=== PATIENT | male | born 1940 | race Caucasian/White ===

== ENCOUNTER 2019-12-10 11:19 | Outpatient (REF) | payer MEDICARE, SELFPAY ==
--- NOTE | 2019-12-10 11:25 | XR_ITS ---
EXAMINATION: XR RIBS, RIGHT CLINICAL INFORMATION: Chest pain. Right rib pain. COMPARISON: None TECHNIQUE: 3 views of the right ribs were obtained. FINDINGS: Chest: The lungs are well-expanded and clear of acute process. There is a small 5 mm pulmonary nodule left midlung. Heart size and pulmonary vascular is normal. There is moderate spondylosis dorsal spine. Right RIBS: Multiple views right ribs reveal no visible fracture or bony abnormality. The soft tissues are normal. XR/XR ribs RT min 3V w CXR1V IMPRESSION: No acute pulmonary process seen. 5 mm pulmonary nodule left midlung, question nipple shadow versus lung nodule. Recommend oblique views. No visible right rib fracture or bony abnormality. There is mild spondylosis dorsal spine. No lytic process.
== END 2019-12-10 11:20 | disposition home or self-care (01) ==
LOC: HO.HMGCX 11:19
PROVIDERS: PCP Internal Medicine; Visit Provider Nurse Practitioner Family
DX: R07.89 Other chest pain (principal); R07.81 Pleurodynia
CPT/HCPCS: 71101

== ENCOUNTER 2021-09-20 11:33 | Outpatient (REF) | payer MEDICARE, SELFPAY ==
--- NOTE | ~2021-09-20 | XR_ITS ---
EXAMINATION: XR CERVICAL SPINE CLINICAL INFORMATION: Neck pain. COMPARISON: None TECHNIQUE: 2 views of the cervical spine were obtained. FINDINGS: Moderate cervicothoracic levoscoliosis is partially visualized. Mild reversal the normal cervical lordosis with apex at C4. Moderate to severe multilevel intervertebral disc, uncovertebral and facet arthropathy. There is no overt fracture. The soft tissues are unremarkable. XR/XR cervical spine 2V IMPRESSION: Reversal the normal cervical lordosis may be secondary to positioning, cervical thoracic levoscoliosis, muscle spasm and/or multilevel degenerative changes detailed above. No definitive acute abnormality.
== END 2021-09-20 11:34 | disposition home or self-care (01) ==
LOC: HO.HMGCX 11:33
PROVIDERS: Visit Provider Internal Medicine
DX: M54.2 Cervicalgia (principal)
CPT/HCPCS: 72040

== ENCOUNTER 2021-12-06 10:56 | Outpatient (REF) | payer MEDICARE, MEDICAID, SELFPAY ==
[2021-12-06 13:50] LABS: MANUAL DIFF FLAG NO
[2021-12-06 13:57] LABS: Basophils Percent Auto 0.6 % (0-2); Eosinophils Absolute Auto 0.2 X10*3/uL (0.0-0.4); Hematocrit 41.4 % (42.0-52.0); Hemoglobin 13.6 g/dl (14.0-18.0); Imm Gran Abs Auto 0.01 X10*3/uL (0.00-0.03); Imm Gran Pct Auto 0.2 % (0.0-0.4); Lymphocytes Absolute Auto 1.2 X10*3/uL (1.2-4.9); Lymphocytes Percent Auto 24.1 % (20-40); Mean Corpuscular HGB Conc 32.9 g/dl (31.0-36.0); Mean Corpuscular Hemoglobin 29.9 pg (27.0-33.0); Mean Platelet Volume 9.1 fL (9.4-12.4); Monocytes Absolute Auto 0.4 X10*3/uL (0.1-1.2); Monocytes Percent Auto 8.5 % (2-11); Neutrophils Absolute Auto 3.2 x10*3/uL (2.0-8.3); Neutrophils Percent Auto 63.6 % (45-73); Platelet Count 154 X10*3/uL (160-400); Red Blood Count 4.55 X10*6/uL (4.60-5.80); Red Cell Distribution Width 12.9 % (11.0-16.0); White Blood Count 5.1 X10*3/uL (4.8-10.8)
[2021-12-06 14:06] LABS: Appearance Urine Clear; Color Urine Yellow; Glucose Urine UA Negative (Negative); Leukocyte Esterase Urine Negative (Negative); Nitrite Urine Negative (Negative); Urine Blood Negative (Negative); Urine Ketones Negative (Negative); Urine Protein Negative (Neg-Trace)
[2021-12-06 14:24] LABS: Alanine Aminotransferase < 6 U/L (0-40); Albumin Level 4.3 g/dL (3.5-5.0); Alkaline Phosphatase 87 U/L (39-117); Anion Gap 14 (12-20); Aspartate Amino Transferase 14 U/L (5-37); Bilirubin Total 0.3 mg/dL (0.0-1.0); Blood Urea Nitrogen 14 mg/dL (9-16); Calcium 9.5 mg/dL (8.4-10.2); Carbon Dioxide 28 mmol/L (22-29); Chloride 101 mmol/L (96-108); Cholesterol 206 mg/dL; Estimated Glomerular Filt Rate > 60; Glucose Fasting 89 mg/dL (60-99); HDL Cholesterol 54 mg/dL; LDL Cholesterol Calculated 135 mg/dl; Potassium 4.3 mmol/L (3.3-5.1); Sodium 139 mmol/L (135-145); Total Protein 7.3 g/dL (6.5-8.0); Triglycerides 86 mg/dL
[2021-12-06 14:42] LABS: Vitamin D 25-OH Total 111.6 ng/mL (>30)
[2021-12-06 14:44] LABS: Creatinine Urine 53.52 mg/dL; Microalbumin Urine < 5.0 mg/L
[2021-12-06 14:54] LABS: Folate > 20.0 ng/mL (> or = 4.0); Vitamin B12 < 146 pg/mL (200-900)
[2021-12-07 06:58] LABS: Syphilis Screen Nonreactive (Nonreactive)
[2021-12-07 07:58] LABS: HIV AB/AG Nonreactive (Nonreactive); HIV Num 1 0.07 S/CO (0.00-0.99)
== END 2021-12-06 10:57 | disposition home or self-care (01) ==
LOC: HO.WFDLDS 10:56
PROVIDERS: Visit Provider Family Medicine
DX: Z00.00 Encounter for general adult medical examination without abnormal findings (principal); E55.9 Vitamin D deficiency, unspecified; E53.8 Deficiency of other specified B group vitamins; R26.9 Unspecified abnormalities of gait and mobility; I10 Essential (primary) hypertension; Z11.3 Encounter for screening for infections with a predominantly sexual mode of transmission; Z12.5 Encounter for screening for malignant neoplasm of prostate
CPT/HCPCS: 36415; 80053; 80061; 81003; 82043; 82306; 82607; 82746; 84153; 84443; 85025; 86780; 87389

== ENCOUNTER 2022-01-18 11:25 | Outpatient (REF) | payer MEDICARE, SELFPAY ==
[2022-01-18 14:11] LABS: MANUAL DIFF FLAG NO
[2022-01-18 14:19] LABS: Basophils Percent Auto 0.6 % (0-2); Eosinophils Absolute Auto 0.1 X10*3/uL (0.0-0.4); Eosinophils Percent Auto 2.8 % (0-4); Hematocrit 42.2 % (42.0-52.0); Hemoglobin 13.6 g/dl (14.0-18.0); Imm Gran Abs Auto 0.01 X10*3/uL (0.00-0.03); Imm Gran Pct Auto 0.2 % (0.0-0.4); Lymphocytes Absolute Auto 1.3 X10*3/uL (1.2-4.9); Lymphocytes Percent Auto 27.2 % (20-40); Mean Corpuscular HGB Conc 32.2 g/dl (31.0-36.0); Mean Corpuscular Hemoglobin 29.1 pg (27.0-33.0); Mean Corpuscular Volume 90.2 fL (80.0-98.0); Mean Platelet Volume 8.6 fL (9.4-12.4); Monocytes Absolute Auto 0.5 X10*3/uL (0.1-1.2); Monocytes Percent Auto 9.3 % (2-11); Neutrophils Percent Auto 59.9 % (45-73); Platelet Count 163 X10*3/uL (160-400); Red Blood Count 4.68 X10*6/uL (4.60-5.80); Red Cell Distribution Width 12.8 % (11.0-16.0); White Blood Count 4.9 X10*3/uL (4.8-10.8)
[2022-01-18 14:33] LABS: Anion Gap 14 (12-20); Blood Urea Nitrogen 14 mg/dL (9-16); Carbon Dioxide 28 mmol/L (22-29); Chloride 103 mmol/L (96-108); Estimated Glomerular Filt Rate > 60; Glucose Fasting 86 mg/dL (60-99); Potassium 4.4 mmol/L (3.3-5.1); Sodium 141 mmol/L (135-145)
[2022-01-18 15:09] LABS: Folate 16.2 ng/mL (> or = 4.0); Vitamin B12 363 pg/mL (200-900)
== END 2022-01-18 11:26 | disposition home or self-care (01) ==
LOC: HO.WFDLDS 11:25
PROVIDERS: Visit Provider Family Medicine
DX: Z00.00 Encounter for general adult medical examination without abnormal findings (principal); E53.8 Deficiency of other specified B group vitamins
CPT/HCPCS: 36415; 80048; 82607; 82746; 85025

== ENCOUNTER 2022-01-21 11:07 | Outpatient (REF) | payer OTHER, SELFPAY ==
--- NOTE | ~2022-01-21 | XR_ITS ---
EXAMINATION: XR CERVICAL SPINE CLINICAL INFORMATION: Pain. COMPARISON: None. TECHNIQUE: 3 views of the cervical spine were obtained. FINDINGS: No abnormal prevertebral soft tissue swelling is seen. There is loss of the normal cervical spine lordosis. There is significant disc space narrowing present with marginal spurring and bridging C3-C7. There is facet arthropathy seen throughout the C2-C7. Lucency is seen about the posterior aspect of the L2 vertebral body and facet which is likely related to artifact rather than a true fracture. XR/XR cervical spine 2V IMPRESSION: Significant cervical spondylosis as described.
--- NOTE | ~2022-01-21 | XR_ITS ---
EXAMINATION: XR SHOULDER, RIGHT CLINICAL INFORMATION: Right shoulder pain. COMPARISON: None TECHNIQUE: 3 views of the right shoulder. FINDINGS: There is no evidence of acute fracture or dislocation of the right shoulder. There is degenerative spurring about the glenohumeral joint. There is also noted to be some cartilage calcification about the humeral head with appearance of possible chondrocalcinosis. No widening of the coracoclavicular space is seen. XR/XR shoulder RT min 2V IMPRESSION: Degenerative change of the glenohumeral joint.
--- NOTE | ~2022-01-21 | XR_ITS ---
EXAMINATION: XR KNEE, LEFT CLINICAL INFORMATION: Left knee pain. COMPARISON: None TECHNIQUE: Four views of the left knee. FINDINGS: There is no evidence of acute fracture or dislocation of the left knee. There is chondrocalcinosis present. There is mild narrowing of the medial joint space compartment. There is degenerative change of the patellofemoral joint with spurring of both the medial and lateral facets of the patella and some irregularity seen about the medial facet. There is spurring about the patellar site of insertion of the quadriceps tendon. No effusion is appreciated. Prominent vascular calcification is seen. XR/XR knee LT 3V IMPRESSION: Degenerative changes of the left knee predominantly at the patellofemoral joint. Chondrocalcinosis.
[2022-01-21 12:48] LABS: Erythrocyte Sedimentation Rate 10 MM/HR (0-15)
[2022-01-21 12:57] LABS: Rheumatoid Factor < 75.0 IU/mL (<15.0)
[2022-01-21 13:07] LABS: Folate 16.4 ng/mL (> or = 4.0)
[2022-01-21 13:28] LABS: Vitamin B12 272 pg/mL (200-900)
[2022-01-23 06:58] LABS: Lyme Abs Screen <0.90 index
[2022-01-24 08:48] LABS: Anti Nuclear Antibody Screen NEGATIVE (NEGATIVE)
== END 2022-01-21 11:08 | disposition home or self-care (01) ==
LOC: HO.XRAY 11:07
PROVIDERS: PCP Family Medicine; Visit Provider Psychiatry & Neurology Neurology
DX: G20 Parkinson's disease (principal); M25.562 Pain in left knee; M54.2 Cervicalgia; M25.511 Pain in right shoulder
CPT/HCPCS: 36415; 72040; 73030; 73562; 82607; 82746; 85652; 86038; 86039; 86431; 86617; 86618

== ENCOUNTER 2022-01-25 11:04 | Outpatient (REF) | payer OTHER, SELFPAY ==
--- NOTE | ~2022-01-25 | MR_ITS ---
EXAMINATION: MRI BRAIN WITHOUT CONTRAST CLINICAL INFORMATION: New diagnosis of Parkinson's. Forgetfulness. Constant headaches. COMPARISON: No relevant recent prior imaging. TECHNIQUE: Multiplanar MR imaging of the brain was performed without contrast. FINDINGS: Patient motion degrades image quality therefore the diagnostic accuracy of this examination is limited. There are scattered nonspecific foci of T2 FLAIR signal hyperintensity within the periventricular white matter. No acute territorial infarct. No pathological magnetic susceptibility artifact. Intracranial vascular flow voids are grossly maintained. There is no intracranial mass effect or midline shift. No abnormal extra-axial collection. Lateral and third ventricles are normal. No hydrocephalus. There is advanced degenerative arthrosis of the atlantodental joint. The cervicomedullary junction is otherwise normal. No mastoid middle ear effusion. Mild paranasal sinus mucosal thickening within ethmoid air cells. Globes and orbits are symmetric. MR/MR head/brain wo con IMPRESSION: Patient motion degrades image quality therefore the diagnostic accuracy of this examination is limited. There are scattered chronic small vessel ischemic changes within the periventricular white matter. Otherwise unremarkable examination. No evidence of acute territorial infarct or hemorrhage. No intracranial mass effect or hydrocephalus.
== END 2022-01-25 11:05 | disposition home or self-care (01) ==
LOC: HO.MRI 11:04
PROVIDERS: Visit Provider Family Medicine
DX: R29.898 Other symptoms and signs involving the musculoskeletal system (principal); R26.2 Difficulty in walking, not elsewhere classified; R32 Unspecified urinary incontinence; R25.1 Tremor, unspecified
CPT/HCPCS: 70551

== ENCOUNTER 2023-02-06 15:16 | Outpatient (AMB) | payer OTHER, SELFPAY ==
[2023-02-06 15:20] VITALS: BP 128/72; PULSE 79; O2SAT 100; BMI 24.1
--- NOTE | 2023-02-06 15:20 | A.OFFPC_ITS ---
Vital Signs 02/06/23 15:20 Height 5 ft 2 in Weight 132 lb BMI 24.1 BP 128/72 Blood Pressure Location Lt brachial Position Sitting Pulse 79 Pulse Source Pulse Oximeter Pulse Oximetry (%) 100 Oxygen Delivery Method Room Air Intake Visit Reasons: follow up chronic conditions Intake Note: Patient is here to follow up on chronic conditions today. There are slight changes in Parkinson's, harder time walking, and harder time to have a bowel movement, and patient has tried to drink more water, and his ears feel blocked. Patient has a hard time sleeping. Allergies No Known Allergies Allergy (Verified 02/06/23 15:24) Tobacco use date assessed: 02/06/23 Fall risk assessment: No Falls in past year Last assessed Fall Risk: 02/06/23 HPI follow up chronic conditions HPI Details 82 y/o male [facility] He reports slight changes in Parkinson's, harder time walking, and harder time having a bowel movement. Pt also reports his ears feel blocked. He reports ongoing difficulty sleeping. They report they've seen Neurology 3 months ago and f/u with them in February. [facility] Medical History Osteoporosis Arthritis Surgical History No pertinent past surgical history Social History Housing: Assisted Living Facility Patient Tobacco Use Status: Never used Tobacco e-Cigarette/Vaping Use: Never Used Second Hand Smoke Exposure: No Current occupational status: retired and disabled Current occupational exposures/hazards: No Cognitive needs: No Hearing needs: Yes Vision needs: No Questionnaire Thrive Questionnaire Date Thrive assessed: 01/07/22 FABIENNE-7 AMB Questionnaire FABIENNE-7 Date FABIENNE - 7 assessed: 12/05/21 Source: Developed by Drs. Rad Dimas, Maria Elena Chaidez, Raoul Higuera and colleagues, with an educational eleanor from [employer]. Review of Systems Const Denies chills, Denies fatigue, Denies fever(s), Denies headache(s) and Denies weakness ENT Denies dizziness and Denies headache(s) Card Denies dyspnea Resp Denies cough, Denies dyspnea, Denies wheezing and Denies other (shortness of breath) GI Reports constipation Musc Denies numbness and Denies tingling Neuro Denies dizziness, Denies headache(s), Denies numbness, Denies tingling and Denies weakness Psych Denies anxiety and Denies depression Endo Denies fatigue Aller/Immun Denies wheezing Physical exam (Primary Care) Vital Signs: Last Vital Signs Pulse 79 02/06/23 15:20 BP 128/72 02/06/23 15:20 Pulse Ox 100 02/06/23 15:20 Oxygen Delivery Method Room Air 02/06/23 15:20 BMI result Body Mass Index 24.1 Tobacco/Smoking Status: Tobacco use Status Tobacco use date assessed 02/06/23 02/06/23 15:27 Patient Tobacco Use Status Never used Tobacco 02/06/23 15:27 e-Cigarette/Vaping Use Never Used 02/06/23 15:27 Thrive Assessment: Date of Thrive Assessment Date Thrive assessed 01/07/22 02/06/23 15:27 Const General: well developed; No acute distress Nutritional Appearance: well nourished Orientation/consciousness: patient oriented x3 HENMT Head: Yes normocephalic and Yes atraumatic Eyes General: appearance normal, both eyes and all related structures Pupils: Equal, round and reactive pupils present EOM: EOMs intact bilaterally Resp Effort & Inspection: normal respiratory effort Auscultation: clear to auscultation bilaterally Cardio Rate: regular rate Rhythm: regular rhythm Heart sounds: S1 normal heart sound present, S2 normal heart sound present, no gallops, no murmurs and no rubs Neuro Other: 3/5 LE weakness General: patient oriented x3 and No gait normal Cranial nerves: Yes Equal, round and reactive pupils present Psych Affect: normal affect Assessment and Plan Assessment & Plan (1) Parkinsonism: Code(s): G20.C - Parkinsonism, unspecified Plan: Worsened?symptoms?including: Worsened?imbalance, worsened?sleep?and?constipation Referred?him?to?physical?therapy?for?lower?extremity?weakness?and?imbalance. (2) Abnormal gait: Code(s): R26.9 - Unspecified abnormalities of gait and mobility Plan: As?above,?lower?extremity?weakness?and?imbalance.??Referred?for?physical?therapy Continue?using?cane Can?use?wheelchair?for?longer?distances (3) Difficulty sleeping: Code(s): G47.9 - Sleep disorder, unspecified Plan: Quetiapine?had?been?helping He?will?continue?quetiapine?in?the?daytime?and?can?inc rease?quetiapine?to?50?mg?in?the?evening/bedtime (4) Ear discomfort: Code(s): H92.09 - Otalgia, unspecified ear Plan: Patient?was?concerned?regarding?ear?wax?or?something?in?his?ears.??Ears?are?checo r (5) Hypertension: Code(s): I10 - Essential (primary) hypertension Plan: Blood?pressure?is?well?controlled.??Goal?is?less?than?140/90 Continue?current?medication (6) Lower extremity weakness: Code(s): R29.898 - Other symptoms and signs involving the musculoskeletal system Plan: As?above,?referred?to?physical?therapy (7) Constipation: Code(s): K59.00 - Constipation, unspecified Plan: Likely?multifactorial?including?parkinsonism?and?mild?dehydration. Encouraged?improved?hydration. Check?labs Orders: Orders Vitamin D 25-OH Total Today E55.9 - Vitamin D deficiency, unspecified Vitamin B12 and Folate Today E53.8 - Deficiency of other specified B group vitamins Magnesium Today R09.81 - Nasal congestion Comprehensive Met. Panel Today R09.81 - Nasal congestion Comprehensive [place]. Panel Fast Today Z00.00 - Encounter for general adult medical examination without abnormal findings TSH reflex Free T4 Today Z00.00 - Encounter for general adult medical examination without abnormal findings UA and rflx microscopic Today Z00.00 - Encounter for general adult medical examination without abnormal findings Complete Blood Count Auto Diff Today Z00.00 - Encounter for general adult medical examination without abnormal findings PT Evaluation and Treatment Today G20.C - Parkinsonism, unspecified, R26.9 - Unspecified abnormalities of gait and mobility, R29.898 - Other symptoms and signs involving the musculoskeletal system Phosphorus Today R29.898 - Other symptoms and signs involving the musculoskeletal system Coding Level of Care Code Est Pt Level 4 (34304) Diagnoses Parkinsonism G20.C Abnormal gait R26.9 Difficulty sleeping G47.9 Ear discomfort H92.09 Hypertension I10 Lower extremity weakness R29.898 Constipation K59.00
== END 2023-02-06 16:09 | disposition home or self-care (01) ==
PROVIDERS: PCP Family Medicine; Visit Provider Family Medicine
DX: G20.C Parkinsonism, unspecified (principal); R26.9 Unspecified abnormalities of gait and mobility; G47.9 Sleep disorder, unspecified; H92.09 Otalgia, unspecified ear; I10 Essential (primary) hypertension; R29.898 Other symptoms and signs involving the musculoskeletal system; K59.00 Constipation, unspecified
CPT/HCPCS: 99214

== ENCOUNTER 2023-09-16 13:50 | Outpatient (AMB) | payer OTHER, SELFPAY ==
--- NOTE | 2023-09-16 14:06 | A.OFFPC_ITS ---
Vital Signs 09/16/23 14:09 Height 5 ft 2 in Weight 131 lb 8 oz BMI 24.0 BP 110/72 Blood Pressure Location Lt brachial Position Sitting Intake Visit Reasons: 3 month Follow up Intake Note: Patient is here to follow up on HTN, Depression, Anxiety. Commercial Litigation Paralegal Required: No Senior Product Marketing Manager: Present Accompanied by: ev[employer] marketing Allergies No Known Allergies Allergy (Verified 09/16/23 14:08) Medication List - Last Reconciled 09/16/23 by Hernan Mae MD acetaminophen ER 650 mg PO Q12H PRN 10 days amlodipine 2.5 mg PO DAILY 30 days blood pressure monitor Automatic, Digital. Dx: I10. Daily As directed, 999 days/lifetime chair, wheel (Wheel chair) As directed cyanocobalamin (vitamin B-12) 1,000 mcg PO DAILY 30 days cyanocobalamin (vitamin B-12) 1,000 mcg IM Q4W 3 months diclofenac sodium 1% (Voltaren Arthritis Pain) 4 grams topical QID PRN 30 days diphenhydramine HCl (NightTime Sleep Aid (diphenhydramine)) 25 mg PO BEDTIME PRN 10 days docusate sodium 100 mg PO BID PRN fluticasone propionate 50 mcg/actuation (Flonase Allergy Relief) 1 spray intranasal Q12H 30 days lactulose PO lisinopril 5 mg PO DAILY 30 days naproxen 500 mg PO BID PRN oxybutynin chloride ER 2.5 mg (1/2 x 5 mg) PO DAILY 30 days polyethylene glycol 3350 17 grams PO quetiapine 25mg (1 tab) AM and 50mg (2 tabs) PM 30 days Shower Chair Shower chair/bench. As directed, 999 days. walker (Ultra-Light Rollator misc) As directed, 999 days Tobacco use date assessed: 09/16/23 Fall risk assessment: No Falls in past year Last assessed Fall Risk: 09/16/23 Dental Screening Dental Screen Date: 09/16/23 Did you have a dental visit in the last 12 months?: Yes Did you have a dental problem in the last 6 months where you did not have access to dental care?: No Was dental information given to patient?: Patient has dentist HPI 3 month Follow up HPI Details 83 y/o male presents to [facility]. Blood pressure today 110/72. He is on lisinopril 5mg daily, amlodipine 2.5mg. FABIENNE-7 21 today. They report mood fluctuates. They note he continues to take carbidopa/levodopa for his parkinson. Had ordered physical therapy for him in the past. Has complaints of L wrist pain. Also has complaints of neck pain. He reports difficuty sleeping and states seroquel does not help. They report ongoing issues with constipation. HPI Comments History of Present Illness Details Documentation assistance for Hernan Mae MD, was provided by Clinton Kingston,? Gas Systems Worker on 09/16/2023 at 3:02 PM EST. I, Dr. Mae, have read, observed, and verified documentation. [facility] Medical History Osteoporosis Arthritis Surgical History No pertinent past surgical history Social History (Updated 09/16/23 @ 14:17 by DAVE Stauffer) Housing: Assisted Living Facility Alcohol intake: never Patient Tobacco Use Status: Never used Tobacco e-Cigarette/Vaping Use: Never Used Second Hand Smoke Exposure: No service: No Current occupational status: retired and disabled Current occupational exposures/hazards: No Cognitive needs: Yes (cane) Hearing needs: Yes Vision needs: No Questionnaire PHQ-9 Over the last 2 weeks, how often have you been bothered by any of the following problems? 1. Little interest or pleasure in doing things: not at all 2. Feeling down, depressed, or hopeless: not at all 3. Trouble falling or staying asleep, or sleeping too much: not at all 4. Feeling tired or having little energy: not at all 5. Poor appetite or overeating: not at all 6. Feeling bad about yourself - or that you are a failure or have let yourself or your family down: not at all 7. Trouble concentrating on things, such as reading the newspaper or watching television: not at all 8. Moving or speaking so slowly that other people could have noticed. Or the opposite - being so fidgety or restless that you have been moving around a lot more than usual: not at all 9. Thoughts that you would be better off or of hurting yourself in some way: not at all Total score: 0 Depression Screening Interpretation: Negative Depression Screening Done: Yes Source: Developed by Drs. Rad Dimas, Maria Elena Chaidez, Raoul Higuera and colleagues, with an educational eleanor from [employer]. Thrive Questionnaire Date Thrive assessed: 09/16/23 I am a: Patient Within the past 12 months, did the food you bought not last and you didn't have the money to get more?: Never true Within the past 12 months, did you worry whether your food would run out before you got money to buy more?: Never true Do you have trouble paying for medicines?: No Do you have trouble getting transportation to medical appointments?: No Do you have trouble paying your heating and electricity bill?: No Do you have trouble taking care of your child, family member or friend?: No Do you have trouble with day-to-day activities such as bathing, preparing meals, shopping, managing finances, etc.?: No Are you currently unemployed and looking for a job?: No Are you interested in more education?: No Currently or been in a relationship where the following occur: No concerns reported THRIVE Score: 0 AUDIT C Alcohol Use Questionnaire (AUDIT-C) 1. How often do you have a drink containing alcohol?: Never Total Score: 0 FABIENNE-7 AMB Questionnaire FABIENNE-7 Date FABIENNE - 7 assessed: 09/16/23 Feeling nervous, anxious, or on edge: 3 = Nearly every day Not being able to stop or control worryin = Nearly every day Worrying too much about different things: 3 = Nearly every day Trouble relaxin = Nearly every day Being so restless that it is hard to sit still: 3 = Nearly every day Becoming easily annoyed or irritable: 3 = Nearly every day Feeling afraid as if something awful might happen: 3 = Nearly every day Total FABIENNE-7 score (0-4 normal; 5-9 mild; 10-14 moderate; 15-21 severe): 21 Source: Developed by Drs. Rad Dimas, Raoul Montelongo and colleagues, with an educational eleanor from [employer]. Review of Systems Const Denies chills, Denies fatigue, Denies fever(s), Denies headache(s) and Denies weakness ENT Denies dizziness and Denies headache(s) Card Denies dyspnea Resp Denies cough, Denies dyspnea, Denies wheezing and Denies other (shortness of breath) Musc Denies numbness and Denies tingling Neuro Denies dizziness, Denies headache(s), Denies numbness, Denies tingling and Denies weakness Psych Reports anxiety Endo Denies fatigue Aller/Immun Denies wheezing Physical exam (Primary Care) Vital Signs: Last Vital Signs BP 110/72 09/16/23 14:09 BMI result Body Mass Index 24.0 Tobacco/Smoking Status: Tobacco use Status Tobacco use date assessed 09/16/23 09/16/23 14:19 Patient Tobacco Use Status Never used Tobacco 09/16/23 14:19 e-Cigarette/Vaping Use Never Used 09/16/23 14:19 PHQ-9: PHQ-9 Score PHQ-9: Total score 0 09/16/23 14:43 Depression Screening Interpretation: Negative Thrive Assessment: Date of Thrive Assessment Date Thrive assessed 09/16/23 09/16/23 14:19 Currently or been in a relationship where the following occur: No concerns reported Const General: well developed; No acute distress Nutritional Appearance: well nourished Orientation/consciousness: patient oriented x3 [facility] Head: Yes normocephalic and Yes atraumatic Eyes General: appearance normal, both eyes and all related structures Pupils: Equal, round and reactive pupils present EOM: EOMs intact bilaterally Resp Effort & Inspection: normal respiratory effort Auscultation: clear to auscultation bilaterally Cardio Rate: regular rate Rhythm: regular rhythm Heart sounds: S1 normal heart sound present, S2 normal heart sound present, no gallops, no murmurs and no rubs Neuro General: patient oriented x3 and gait normal Cranial nerves: Yes Equal, round and reactive pupils present Psych Affect: normal affect Assessment and Plan Assessment & Plan (1) Parkinsonism: Code(s): G20.C - Parkinsonism, unspecified Plan: Fairly?stable?today?though?disease?is?progressive?and?patient?says?his?neurologi st?has?said?he?is?gradually?worsening Continues?carbidopa-levodopa Follow-up?with?Neurology?as?recommended (2) Hypertension: Code(s): I10 - Essential (primary) hypertension Plan: Blood?pressure?is?well?controlled.??Goal?is?less?than?140/90 Continue?current?medication (3) Depression with anxiety: Code(s): F41.8 - Other specified anxiety disorders Plan: Continue?Seroquel (4) Difficulty walking: Code(s): R26.2 - Difficulty in walking, not elsewhere classified Plan: Start?physical?therapy Will?give?him?a?script?for?a?motorized?scooter?for?longer?distances (5) Cervicalgia: Code(s): M54.2 - Cervicalgia Plan: Ice/heat Tylenol (6) Left wrist pain: Code(s): M25.532 - Pain in left wrist Plan: Likely?multifactorial?including?some?carpal?tunnel Gave?him?a?left?wrist?brace - use?loosely?at?bedtime (7) Difficulty sleeping: Code(s): G47.9 - Sleep disorder, unspecified Plan: Worsening?difficulty?with?sleep.??He?is?already?on?Seroquel?for?mood?and?says?th is?is?not?helping?with?sleep Will?try?some?Ambien (8) Constipation: Code(s): K59.00 - Constipation, unspecified Plan: Patient?is?not?drinking?enough?water?and?I?encouraged ?him?to?increase?water?intake Continue?using?MiraLax?with?good?hydration Orders: Orders PT Evaluation and Treatment Today G20.C - Parkinsonism, unspecified, R26.9 - Unspecified abnormalities of gait and mobility, R29.898 - Other symptoms and signs involving the musculoskeletal system, R53.1 - Weakness Complete Blood Count Auto Diff Today G20.C - Parkinsonism, unspecified, Z00.00 - Encounter for general adult medical examination without abnormal findings Lipid Panel Today G20.C - Parkinsonism, unspecified, Z00.00 - Encounter for general adult medical examination without abnormal findings UA and rflx microscopic Today G20.C - Parkinsonism, unspecified, Z00.00 - Encounter for general adult medical examination without abnormal findings Vitamin B12 and Folate Today E53.8 - Deficiency of other specified B group vitamins, G20.C - Parkinsonism, unspecified Comprehensive [place]. Panel Fast Today G20.C - Parkinsonism, unspecified, Z00.00 - Encounter for general adult medical examination without abnormal findings Microalbumin, Random (w Creat) Today G20.C - Parkinsonism, unspecified, I10 - Essential (primary) hypertension TSH reflex Free T4 Today G20.C - Parkinsonism, unspecified, Z00.00 - Encounter for general adult medical examination without abnormal findings Prostate Specific Antigen Scr Today G20.C - Parkinsonism, unspecified, Z12.5 - Encounter for screening for malignant neoplasm of prostate Referrals Audiology Referral H91.90 - Unspecified hearing loss, unspecified ear Medications: New miscellaneous medical supply Motorized?scooter. ?Daily?As directed. 999 days 1 ea 0RF G20.C - Parkinsonism, unspecified, R26.9 - Unspecified abnormalities of gait and mobility, R29.898 - Other symptoms and signs involving the musculoskeletal system zolpidem (Ambien) 5 mg PO BEDTIME 30 days PRN 30 tabs 0RF sleep carbidopa-levodopa 25-100 mg 1 tab PO QAM 30 days 30 tabs 0RF Refilled cyanocobalamin (vitamin B-12) 1,000 mcg PO DAILY 30 days 30 tabs 2RF Coding Level of Care Code Est Pt Level 4 (13351) Diagnoses Parkinsonism G20.C Hypertension I10 Depression with anxiety F41.8 Difficulty walking R26.2 Cervicalgia M54.2 Left wrist pain M25.532 Difficulty sleeping G47.9 Constipation K59.00
[2023-09-16 14:09] VITALS: BP 110/72; BMI 24.0
== END 2023-09-16 15:20 | disposition home or self-care (01) ==
PROVIDERS: PCP Family Medicine; Visit Provider Family Medicine
DX: G20.C Parkinsonism, unspecified (principal); I10 Essential (primary) hypertension; F41.8 Other specified anxiety disorders; R26.2 Difficulty in walking, not elsewhere classified; M54.2 Cervicalgia; M25.532 Pain in left wrist; G47.9 Sleep disorder, unspecified; K59.00 Constipation, unspecified
CPT/HCPCS: 99214

== ENCOUNTER 2023-09-19 10:03 | Outpatient (REF) | payer OTHER, SELFPAY ==
[2023-09-19 11:11] LABS: MANUAL DIFF FLAG NO
[2023-09-19 11:15] LABS: Basophils Percent Auto 0.7 % (0-2); Eosinophils Absolute Auto 0.1 X10*3/uL (0.0-0.4); Eosinophils Percent Auto 3.2 % (0-4); Hematocrit 39.6 % (42.0-52.0); Hemoglobin 12.9 g/dl (14.0-18.0); Imm Gran Abs Auto 0.01 X10*3/uL (0.00-0.03); Imm Gran Pct Auto 0.2 % (0.0-0.4); Lymphocytes Absolute Auto 1.3 X10*3/uL (1.2-4.9); Lymphocytes Percent Auto 28.9 % (20-40); Mean Corpuscular HGB Conc 32.6 g/dl (31.0-36.0); Mean Corpuscular Hemoglobin 29.3 pg (27.0-33.0); Monocytes Absolute Auto 0.4 X10*3/uL (0.1-1.2); Monocytes Percent Auto 9.5 % (2-11); Neutrophils Absolute Auto 2.6 x10*3/uL (2.0-8.3); Neutrophils Percent Auto 57.5 % (45-73); Platelet Count 124 X10*3/uL (160-400); Red Cell Distribution Width 13.4 % (11.0-16.0); White Blood Count 4.4 X10*3/uL (4.8-10.8)
[2023-09-19 12:10] LABS: Alanine Aminotransferase 7 U/L (0-40); Albumin Level 3.8 g/dL (3.5-5.0); Alkaline Phosphatase 77 U/L (39-117); Anion Gap 9 (12-20); Aspartate Amino Transferase 14 U/L (5-37); Bilirubin Total 0.8 mg/dL (0.0-1.0); Blood Urea Nitrogen 16 mg/dL (9-16); Calcium 8.6 mg/dL (8.4-10.2); Carbon Dioxide 28 mmol/L (22-29); Chloride 105 mmol/L (96-108); Cholesterol 192 mg/dL (<200); Estimated Glomerular Filt Rate > 60; Glucose Fasting 86 mg/dL (60-99); Glucose Random 86 mg/dL (60-115); HDL Cholesterol 48 mg/dL (>40); LDL Cholesterol Calculated 130 mg/dL (<100); Phosphorus 2.7 mg/dL (2.7-4.5); Potassium 4.1 mmol/L (3.3-5.1); Sodium 138 mmol/L (135-145); Total Protein 6.9 g/dL (6.5-8.0); Triglycerides 73 mg/dL (<150)
[2023-09-19 12:33] LABS: TSH reflex Free T4 1.29 uIU/mL (0.32-4.0); Vitamin D 25-OH Total 35.9 ng/mL (>30)
[2023-09-19 13:20] LABS: Folate 10.9 ng/mL (> or = 4.0); Prostate Specific Antigen Scr 1.79 ng/mL (<0.05-4.0); Vitamin B12 163 pg/mL (200-900)
[2023-09-19 14:12] LABS: Appearance Urine Clear; Color Urine Yellow; Glucose Urine UA Negative (Negative); Leukocyte Esterase Urine Negative (Negative); Nitrite Urine Negative (Negative); Specific Gravity - Urine 1.015 (1.005-1.025); Urine Blood Negative (Negative); Urine Ketones Negative (Negative); Urine Protein Negative (Neg-Trace)
[2023-09-19 14:48] LABS: Creatinine Urine 135.76 mg/dL; Microalbum/Creatinine Ratio Ur 10.3 ug/mg cr (<30)
== END 2023-09-19 10:04 | disposition home or self-care (01) ==
LOC: HO.WFDLDS 10:03
PROVIDERS: Visit Provider Family Medicine
DX: Z00.00 Encounter for general adult medical examination without abnormal findings (principal); R09.81 Nasal congestion; G20.C Parkinsonism, unspecified; I10 Essential (primary) hypertension; R29.898 Other symptoms and signs involving the musculoskeletal system; Z12.5 Encounter for screening for malignant neoplasm of prostate; E55.9 Vitamin D deficiency, unspecified; E53.8 Deficiency of other specified B group vitamins
CPT/HCPCS: 36415; 80053; 80061; 81003; 82043; 82306; 82570; 82607; 82746; 83735; 84100; 84153; 84443; 85025

== ENCOUNTER 2023-11-20 14:00 | Outpatient (RCR) | payer OTHER, SELFPAY ==
[2023-10-30 08:14] VITALS: BP 140/80; PULSE 68; O2SAT 98
--- NOTE | 2023-10-31 11:41 | MHC.PT.EP ---
[facility] [place] [facility] [place] [facility] [place] [facility] [address] Margie Cardenas [address] [phone] F: [phone] F: [phone] F: [phone] F: [phone] Physical Therapy Plan of Care Date of Evaluation: 10/30/23 Date of Surgery: Diagnosis: PT eval and treat G20.C Other symptoms and signs involving the musculoskeletal system R53.1 Weakness Parkinsonism Lower extremity weakness, generalized weakness, abnormal gait Signed by Hernan Mae 09/17/23 Assessment: Pt is a RHD 83 y/o male, referred to PT for treatment from PCP : PT eval and treat G20.C Other symptoms and signs involving the musculoskeletal system R53.1 Weakness: Parkinsonism Lower extremity weakness, generalized weakness, abnormal gait. Signed by Hernan Mae 09/17/23. Pt presents to the office with one of his RD SCIENTIST workers, unable to provide any information or background. Per medical records, it states patient received diagnosis of Parkinson's in 2021. Pt has noted speech difficulty and is not currently receiving any speech therapy. He also states he has not had PT in the past. Pt exhibits significant concern for risk of fall with short step length, shuffled feet with freezing episodes, catching his feet when moving. He presents to the office wearing slip on sandals. Pt presents to the office in MOD CGA support of his RD SCIENTIST while also carrying a std cane. Per baseline has been receiving Min<>MOD help out of bed for some time but does have periods of time when he is alone in his apartment. Pt exhibits impaired cervical ROM (significant limitation in rotation>flex>ext. Pt reports history of bilateral knee pain, weakness in his legs, and back pain. Pt would benefit from skilled PT services at a frequency of 1x/week x 4-6 weeks to address impairments, implement HEP, and restore functional mobility to improve safety. Pt presents to the office with RD SCIENTIST Gunnar Villa, states the primary RD SCIENTIST is Nasir Joyce (his ) with collective care of 50 hours per week (personal care, medical appts). Pt has poor trunk balance, impaired gait pattern, narrow ZULEIMA, and foot flat contact. He has poor safety during functional transfers and does not know how to use a walker safely. He is a major fall risk. Pt defers need for director multimedia, defers questions to his RD SCIENTIST during intake. Therapist was told by his RD SCIENTIST workers that patient has been in process of moving in with them into an apartment that has 12 steps to enter. Pt currently has his own senior housing in a first floor apartment. Therapist is expressing concern to investigate this patient's HCP/POA? It appears patient is completely reliant on support of this couple who are both act as his RD SCIENTIST with report of hours listed as 50 hours per week who now state they are moving him in with them to make it easier? Pt's RD SCIENTIST currently assist with personal care, grocery, meal prep, medical appts, and self care. Pt's RD SCIENTIST states he was was previously residing on his own in a handicap style apartment but due to concerns for falls, and need for more support they have been working to move him into their residence. When checking in with Dr. Mae medical office scheduler re: HCP- no record of HCP/POA was on file. Both patient and RD SCIENTIST worker were educated re: hand placement for support/sequencing with functional transfers issued education in writing. Pt will be seen in PT once weekly to address listed impairments/goals. RD SCIENTIST and patient were shown how to use a RW however decreased carryover is observed with patient and is appears he will require repeated training/education along with his care staff. Prognosis is fair based on baseline function, level of mobility, and compliance/current state. Pt has memory impairment as well. Mr. Nicole's RD SCIENTIST worker also inquired for referral aides. Frequency and Duration: The patient will be seen 1x/week x 4-6 weeks Short Term Goals: 1. Pt will demonstrate sit<>stand on first attempt. 2. Pt will demonstrate good eccentric control during functional transfers. 3. Pt will demonstrate bed mobility to the left MOD I. 4. Pt RD SCIENTIST will demonstrate good caregiver education for functional transfers/hand placement. Usp Goals: 1. Pt will demonstrate strength hip abd to 5/5. 2. Pt will demonstrate I HEP with RD SCIENTIST/caregiver education. 3. Pt will hip extension strength of 5/5. 4. Pt will improve HS flexibility to 155 degrees or > B knees. 5. Knee extension strength SLR into flexion with good dynamic balance. Treatment Plan: Modalities to reduce pain, spasms and effusion. Manual therapy to restore motion and function. Therapeutic exercise to improve strength and flexibility. Neuromuscular re-education for posture and balance. Therapeutic activities to return to functional activities of daily living. Electronically signed by: Olivia Braxton PT, DPT Please sign and return to therapist. Thank you for your referral.
== END 2023-12-30 13:37 | disposition home or self-care (01) ==
LOC: HO.PTWFD 14:00
PROVIDERS: PCP Family Medicine; Visit Provider Family Medicine
DX: G20.C Parkinsonism, unspecified (principal); R29.898 Other symptoms and signs involving the musculoskeletal system; R53.1 Weakness
CPT/HCPCS: 97110; 97116; 97161; 97162; 97530; 97535

== ENCOUNTER 2023-12-24 11:59 | Outpatient (AMB) | payer OTHER, SELFPAY ==
--- NOTE | 2023-12-24 12:17 | A.OFFVIS_ITS ---
Intake Vital Signs 12/24/23 12:19 Height 5 ft 2 in Weight 133 lb 6 oz BMI 24.4 BP 134/70 Blood Pressure Location Lt brachial Position Sitting Respiration 14 Pulse 81 Pulse Source Pulse Oximeter Pulse Oximetry (%) 98 Oxygen Delivery Method Room Air Intake Visit Reasons: CPE with f/u labs and health maint. 30 mins Intake Note: annual physical and follow up on labs. Patient had his vision tested a few months back. Hands And Dial Inspector Required: No Allergies No Known Allergies Allergy (Verified 12/24/23 13:02) Medication List - Last Reconciled 12/24/23 by TORI Yepez-JOSE MIGUEL acetaminophen ER 650 mg PO Q12H PRN 10 days amlodipine 2.5 mg PO DAILY 30 days blood pressure monitor Automatic, Digital. Dx: I10. Daily As directed, 999 days/lifetime carbidopa-levodopa 25-100 mg 1 tab PO BID 30 days chair, wheel (Wheel chair) As directed cyanocobalamin (vitamin B-12) 1,000 mcg PO DAILY 30 days cyanocobalamin (vitamin B-12) 1,000 mcg IM Q4W 3 months diclofenac sodium 1% (Voltaren Arthritis Pain) 4 grams topical QID PRN 30 days diphenhydramine HCl (NightTime Sleep Aid (diphenhydramine)) 25 mg PO BEDTIME PRN 10 days docusate sodium 100 mg PO BID PRN escitalopram oxalate 5 mg PO DAILY fluticasone propionate 50 mcg/actuation (Flonase Allergy Relief) 1 spray intranasal Q12H 30 days lactulose PO lisinopril 5 mg PO DAILY 30 days mirtazapine 15 mg PO BEDTIME miscellaneous medical supply Motorized?scooter. ?Daily?As directed. 999 days naproxen 500 mg PO BID PRN oxybutynin chloride ER 2.5 mg (1/2 x 5 mg) PO DAILY 30 days polyethylene glycol 3350 17 grams PO quetiapine 25mg (1 tab) AM and 50mg (2 tabs) PM 30 days Shower Chair Shower chair/bench. As directed, 999 days. walker (Ultra-Light Rollator misc) As directed, 999 days zolpidem (Ambien) 5 mg PO BEDTIME PRN 30 days Do you need a note to return to daycare/school/sports/work: No HPI HPI Comments History of Present Illness Details 83-year-old male with hypertension, tammy r depressive disorder, hypertension, B12 deficiency anemia, constipation, Parkinson's, osteoporosis, osteoarthritis, hemorrhoids, cataracts, HLD, FABIENNE Here today for AWV. The Medicare Annual Wellness Visit (AWV) is a yearly appointment with a health professional to identify health risks and help reduce them and to create or update a personalized prevention plan. During a Medicare AWV, health professionals should also review any current opioid prescriptions, detect any cognitive impairment, and establish or update medical and family history. SurgHx: Y FHx Y SocHx: Lives w/ decal applier Health Maintenance: See scanned preventative medicine assessment with personalized health plan and screening schedule. Colon: n/a based on age Vaccines Tdap 2018, PPSV 2008, declined Flu 2023, Shingles UTD AAA screen NA EKG: Declined Brilliant of Care: Neurology As listed in chart Visual Acuity: Y Hearing Screening: Y ACP: Does not have, ACP/MOLST/5 wishes provided today, reviewed w him and Manual Qa Tester. He has [facility] Nurse q3 months, advised to complete and return. Dietary/Nutrition/Exercise Edu provided: Y Labs reviewed. B12 anemia. Caregiver states he was on po and injectable B12 but is not currently. Unsure as to why. Has a nurse in the home that can give the parenteral b12. During the course of the visit the patient was educated and counseled about appropriate screening and preventative services. Patient instructions were provided to the patient in written or electronic format. I have reviewed and verified the above information. In addition to the wellness visit, there all several complaints that need to be addressed today. The 1st is that hard of hearing bilateral. Does not wear hearing aids. 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 He is not active with ear nose and throat. He also reports a history of cerumen impactions. Has chronic constipation with irritated hemorrhoids both internal and external. History of hemorrhoidectomy several years ago. Using several [id number] agents to help with his chronic constipation. The use of Mag citrate seems to b e the most successful. The last bowel movement was 2 days ago. He was referred to physical therapy to help prevent falls. Caregiver reports that recent appointment with neurologist recommended no need for physical therapy given his overall chronic frailty and deconditioning. I do not have this consult note for review. His carbidopa levodopa was also increased from once daily to twice per day. He uses a cane, walker and wheelchair for ambulation. Finally, chronic pain, generalized, worse in neck and bilat hands. Has been on gabapentin in the past w/o relief. On APAP ER BID, topical diclofenac & prn naproxen. Exam Awake alert, chronically ill appearing and frail, accompanied by female caregiver [place] imp bilat unable to see TM Edentulous Unsteady gait, amb w cane and physical asst. Plan: Refer to ENT for cerumen impactions bilat. Cannot lavage in the office given the hx of TM rupture on the L. Refer to Gen Surg for hemorrhoids. Pt would like repeat hemorrhoidectomy as this was helpful in the past. Rec cont bowel regimen. Ok to stop PT. Refer to [facility] for further asst in managing his chronic pain. Start parenteral and po B12. Lipids elevated, not on statin, clinically do not recommend based on age. Repeat labs ordered to be done before next appt with PCP which should be in about 4-6 months, sooner PRN. This note is constructed using voice recognition software. While every effort has been made to ensure accuracy in celebrity manager, still errors may have been included Sometimes, these errors may affect the content or meaning of the given sentence . An additional 30 was spent addressing the problem(s) noted at todays visit. This includes time spent before the visit reviewing the chart, time spent during the visit, and time spent after the visit on documentation [facility] Medical History (Updated 12/25/23 @ 10:52 by Cindi Lwoery, [facility]) Thrombocytopenia Depression with anxiety Lower extremity weakness Left wrist pain Generalized weakness Osteoporosis Arthritis Surgical History No pertinent past surgical history Social History (Updated 09/16/23 @ 14:17 by DAVE Stauffer) Housing: Assisted Living Facility Alcohol intake: never Patient Tobacco Use Status: Never used Tobacco e-Cigarette/Vaping Use: Never Used Second Hand Smoke Exposure: No service: No Current occupational status: retired and disabled Current occupational exposures/hazards: No Cognitive needs: Yes (cane) Hearing needs: Yes Vision needs: No Questionnaire Medicare Wellness Checkup What is your age?: 80 or older What gender do you identify with?: male During the past 4 weeks, how much have you been bothered by emotional problems such as feeling anxious, depressed, irritable, sad or downhearted, and blue?: not at all During the past 4 weeks, has your physical & emotional health limited your social activities with family, friends, neighbors, or groups?: not at all During the past 4 weeks, how much bodily pain have you generally had?: severe pain During the past 4 weeks, was someone available to help you if you needed & wanted help?: yes, as much as I wanted During the past 4 weeks, what was the hardest physical activity you could do for at least 2 minutes?: very light Can you get to places out of walking distance without help? (For eg., can you travel alone on buses, taxis or drive your car?): No Can you go shopping for groceries or clothes without someone's help?: No Can you prepare your own meals?: No Can you do your housework without help?: No Because of any health problems, do you need the help of another person with your personal care needs such as eating, bathing, dressing or getting around the house?: Yes Can you handle your own money without help?: No During the past 4 weeks, how would you rate your health in general?: fair During the past 4 weeks how have things been going for you?: good & bad parts about equal Are you having difficulties driving your car?: not applicable, I don't use a car Do you always fasten your seat belt when you are in a car?: yes, usually During past 4 weeks, have you been bothered by the following: never: Falling or dizzy when standing up and Sexual problems? and always: Trouble eating well? (edentulous, puree diet), Teeth or denture problems? (endetulous,working w/ Dental to get dentures), Problems using the telephone? and Tiredness or fatigue? Have you fallen 2 or more times in the past year?: No Are you afraid of falling?: No Are you a smoker?: no During the past 4 weeks, how many drinks of wine, beer, or other alcoholic beverages did you have?: no alcohol at all Do you exercise for about 20 minutes 3 or more times a week?: no, I usually do not exercise this much Have you been given information to help with the following?: no: Hazards in your house that might hurt you? and no: Keeping track of your medications? How often do you have trouble taking medicines the way you have been told to take them?: I always take medicine as prescribed How confident are you that you can control & manage most of your health problems?: very confident Activity of Daily Living Bathing - sponge bath, tub bath or shower: receives help in bathing more than one body part (or not bathed) Dressing - getting clothes from closets & drawers, including inner/outer garments & fasteners.: receives help getting clothes or getting dressed, or stays undressed Toileting - going to the 'toilet room' for urine/bowel elimination & cleaning self/arranging clothes: receives help going to toilet room, cleaning self or arranging clothes Transfer: moves in & out of bed or chair with help Continence: has occasional 'accidents' Feeding: feeds self except getting help in cutting meat/buttering bread Total Score: 2 Information obtained from: informant Using telephone: needs assistance Traveling: needs assistance Shopping: needs assistance Preparing meals: needs assistance Housework: dependent Taking medicine: needs assistance Managing money: dependent PHQ-9 Over the last 2 weeks, how often have you been bothered by any of the following problems? 1. Little interest or pleasure in doing things: several days 2. Feeling down, depressed, or hopeless: several days 3. Trouble falling or staying asleep, or sleeping too much: several days 4. Feeling tired or having little energy: several days 5. Poor appetite or overeating: several days 6. Feeling bad about yourself - or that you are a failure or have let yourself or your family down: not at all 7. Trouble concentrating on things, such as reading the newspaper or watching television: several days 8. Moving or speaking so slowly that other people could have noticed. Or the opposite - being so fidgety or restless that you have been moving around a lot more than usual: several days 9. Thoughts that you would be better off or of hurting yourself in some way: not at all Total score: 7 Depression Screening Interpretation: Negative Depression Screening Done: Yes 20060 - PHQ-9 Billing: Yes Source: Developed by Drs. Rad Dimas, Maria Elena Chaidez, Raoul Higuera and colleagues, with an educational eleanor from [employer]. Physical Exam Vital Signs: Last Vital Signs Pulse 81 12/24/23 12:19 Resp 14 12/24/23 12:19 BP 134/70 12/24/23 12:19 Pulse Ox 98 12/24/23 12:19 Oxygen Delivery Method Room Air 12/24/23 12:19 BMI result Body Mass Index 24.4 Office Procedures EKG Details: declined by patient [id number], Complete (do not bill declined ) Hearing Screen 91951 - Screening Test, pure tone, air only Vision Screening 44249 - Vision Screening Results AMB Hemoglobin A1c AMB Hemoglobin A1c 5.4 % Last Edit by Thang Hurd MA on 12/24/23 12:47 Results Reviewed Results Reviewed: Laboratory Last Values Hgb A1c (Clinic) 5.4 % (4.0-6.0) 12/24/23 12:17 RUN: 12/25/23 1048 PAGE 1 [facility] [address] [place] [address] Cullet Crusher: Hernan Baires M.D. Specimen Inquiry Name: Brad Nicole Age/Sex: 83/M : 1940 Unit#: [id number] Attend Dr: Hernan Mae MD Re09/19/23 Status: DEP [facility] Disch: SPEC : [id number] CONRAD: 09/19/23 STATUS: COMP REQ : [id number] RECD: 09/19/23-[address]: Hernan Mae MD COMP: 09/19/23 ENTERED: 09/19/[address] [facility] [address]: ORDERED: CBC Auto Diff Test Result Flag Reference WBC 4.4 L 4.8-10.8 X10*3/uL RBC 4.40 L 4.60-5.80 X10*6/uL HGB 12.9 L 14.0-18.0 g/dl HCT 39.6 L 42.0-52.0 % MCV 90.0 80.0-98.0 fL MCH 29.3 27.0-33.0 pg MCHC 32.6 31.0-36.0 g/dl RDW 13.4 11.0-16.0 % PLT 124 L 160-400 X10*3/uL MPV 9.0 L 9.4-12.4 fL Neut Pct Auto 57.5 45-73 % ImGran Pct Auto 0.2 0.0-0.4 % Lymp Pct Auto 28.9 20-40 % [place] Pct Auto 9.5 2-11 % Eos Pct Auto 3.2 0-4 % Baso Pct Auto 0.7 0-2 % NRBC Pct Auto 0.0 0.0-0.2 /100WBC ANC Neut Abs # 2.6 2.0-8.3 x10*3/uL ImGran Abs Auto 0.01 0.00-0.03 X10*3/uL Lymph Abs Auto 1.3 1.2-4.9 X10*3/uL [place] Abs Auto 0.4 0.1-1.2 X10*3/uL Eos Abs Auto 0.1 0.0-0.4 X10*3/uL Baso Abs Auto 0.0 0.0-0.2 X10*3/uL NRBC Abs Auto 0.000 0.0-0.012 X10*3/uL END OF REPORT RUN: 12/25/23 2704 PAGE 1 [facility] [address] [place] [id number] Cullet Crusher: Hernan Baires M.D. Specimen Inquiry Name: Brad Nicole Age/Sex: 83/M : 1940 Unit#: [id number] Attend Dr: Hernan Mae MD Re09/19/23 Status: DEP REF Location: [facility] Disch: SPEC : [id number] CONRAD: 09/19/23 STATUS: COMP REQ : [id number] RECD: 09/19/23-[address]: Hernan Mae MD COMP: 09/19/23-3 ENTERED: 09/19/23-[address]: ORDERED: CMP, CMP Fast, Phos, MG, Lipid Panel, Vitamin D 25-OH, TSH Rflx Test Result Flag Reference Sodium 138 135-145 mmol/L Potassium 4.1 3.3-5.1 mmol/L CL 105 96-108 mmol/L CO2 28 22-29 mmol/L Gap 9 L 12-20 BUN 16 9-16 mg/dL Creat 1.00 0.5-1.4 mg/dL EGFR > 60 NOTE: For -Guyanese individuals, multiply the result by 1.210. Chronic Kidney Disease: Estimated GFR < 60 mL/min/1.73m2 Severe Kidney Disease: Estimated GFR < 15 mL/min/1.73m2 Glucose, Random 86 60-115 mg/dL FBS 86 60-99 mg/dL CA 8.6 8.4-10.2 mg/dL Phosphorus 2.7 2.7-4.5 mg/dL Magnesium 2.0 1.6-2.6 mg/dL Total Bili 0.8 0.0-1.0 mg/dL AST (GOT) 14 5-37 U/L ALT (GPT) 7 0-40 U/L Protein, Total 6.9 6.5-8.0 g/dL Alb 3.8 3.5-5.0 g/dL Triglyceride 73 <150 mg/dL Desirable Triglyceride: less than 150 mg/dL Borderline High Triglyceride 150-199 mg/dL High Triglyceride: 200-499 mg/dL Very High Triglyceride: greater than or equal to 5OO mg/dL Cholesterol 192 <200 mg/dL Desirable Cholesterol: less than 200 mg/dL Borderline High Cholesterol: 200-239 mg/dL High Cholesterol: greater than 239 mg/dL LDL Calculated 130 H <100 mg/dL Desirable LDL: less than 100 mg/dL Near Optimal/Above Optimal LDL: 110-129 mg/dL Borderline High LDL: 130-159 mg/dL High LDL: 160-189 mg/dL Very High LDL: greater than or equal to 190 mg/dL HDL 48 >40 mg/dL Desirable HDL: greater than 40 mg/dL Note: This HDL assay may give artificially low results in patients with liver disease. Alk Phos 77 39-117 U/L Vit D 25-OH Tot 35.9 >30 ng/mL Health Based Reference Values* < 20 ng/mL Deficient 20-30 ng/mL Insufficient > 30 ng/mL Sufficient *Bailey OLIVARES. N Engl J Med. 2007;357:266-280 Care must be taken in interpreting Vitamin D results from different laboratories and methodologies. Published data demonstrated that results from patients undergoing hemodialysis may show a negative bias when tested with various automated 25-OH vitamin D assays when compared to LC-MS/MS. When testing samples from patients whose predominant form of Vitamin D is Vitamin D2, such as patients receiving Vitamin D2 supplementation, results that are subtherapeutic should be confirmed with another method such as LC-MS/MS. TSH 1.29 0.32-4.0 uIU/mL END OF REPORT Assessment & Plan Assessment & Plan (1) Encounter for subsequent annual wellness visit (AWV) in Medicare patient: Code(s): Z00.00 - Encounter for general adult medical examination without abnormal findings Plan: . (2) Chronic pain: Code(s): G89.29 - Other chronic pain Qualifiers: Chronic pain type: chronic pain syndrome Qualified Code(s): G89.4 - Chronic pain syndrome Plan: . (3) Hemorrhoids: Code(s): K64.9 - Unspecified hemorrhoids Qualifiers: Hemorrhoid type: unspecified Qualified Code(s): K64.9 - Unspecified hemorrhoids Plan: . (4) Hard of hearing: Comment: bilat Code(s): H91.90 - Unspecified hearing loss, unspecified ear Plan: . (5) Impacted cerumen, bilateral: Code(s): H61.23 - Impacted cerumen, bilateral Plan: . (6) ACP (advance care planning): Code(s): Z71.89 - Other specified counseling Plan: . (7) B12 deficiency anemia: Code(s): D51.9 - Vitamin B12 deficiency anemia, unspecified Qualifiers: Vitamin B12 deficiency anemia type: unspecified B12 deficiency Qualified Code(s): D51.9 - Vitamin B12 deficiency anemia, unspecified Plan: , (8) Cataracts, bilateral: Code(s): H26.9 - Unspecified cataract Qualifiers: Cataract type: age-related Age-related cataract type: nuclear Qualified Code(s): H25.13 - Age-related nuclear cataract, bilateral Plan: . (9) Parkinson disease: Code(s): G20.A1 - Parkinson's disease without dyskinesia, without mention of fluctuations Qualifiers: Dyskinesia presence: with dyskinesia Fluctuating manifestations: with fluctuating manifestations Qualified Code(s): G20.B2 - Parkinson's disease with dyskinesia, with fluctuations Plan: . (10) MDD (major depressive disorder), recurrent episode: Code(s): F33.9 - Major depressive disorder, recurrent, unspecified Qualifiers: Major depression episode severity: mild Qualified Code(s): F33.0 - Major depressive disorder, recurrent, mild Plan: . (11) FABIENNE (generalized anxiety disorder): Code(s): F41.1 - Generalized anxiety disorder Plan: . (12) Constipation: Code(s): K59.00 - Constipation, unspecified Qualifiers: Constipation type: chronic idiopathic constipation Qualified Code(s): K59.04 - Chronic idiopathic constipation Plan: . (13) Pancytopenia: Code(s): D61.818 - Other pancytopenia Plan: . (14) HLD (hyperlipidemia): Code(s): E78.5 - Hyperlipidemia, unspecified Qualifiers: Hyperlipidemia type: mixed hyperlipidemia Qualified Code(s): E78.2 - Mixed hyperlipidemia Plan: . Plan . Orders: Orders Vitamin B12 and Folate 05/18/24 D51.9 - Vitamin B12 deficiency anemia, unspecified, D61.818 - Other pancytopenia, E78.2 - Mixed hyperlipidemia AMB Hemoglobin A1c 12/24/23 Z13.9 - Encounter for screening, unspecified AMB EKG-In Office 12/24/23 Z13.6 - Encounter for screening for cardiovascular disorders Complete Blood Count no Diff 05/18/24 D51.9 - Vitamin B12 deficiency anemia, unspecified, D61.818 - Other pancytopenia, E78.2 - Mixed hyperlipidemia Lipid Panel 05/18/24 D51.9 - Vitamin B12 deficiency anemia, unspecified, D61.818 - Other pancytopenia, E78.2 - Mixed hyperlipidemia Referrals Ophthalmology Referral H26.9 - Unspecified cataract Pain Management Referral G89.29 - Other chronic pain General Surgery Referral K64.9 - Unspecified hemorrhoids Ear/Nose/Throat Referral H61.23 - Impacted cerumen, bilateral, H91.90 - Unspecified hearing loss, unspecified ear Medications: Changed From carbidopa-levodopa 25-100 mg 1 tab PO QAM 30 days 30 tabs 0RF To carbidopa-levodopa 25-100 mg 1 tab PO BID 30 days 60 tabs 0RF Refilled cyanocobalamin (vitamin B-12) 1,000 mcg PO DAILY 30 days 30 tabs 2RF cyanocobalamin (vitamin B-12) 1,000 mcg IM Q4W 3 months 4 mL 3RF Quality Reporting (2019) Adult ([facility] 138//) Smoking risk assessment performed?: Yes Patient Tobacco Use Status: Never used Tobacco Depression screening performed: Yes Screen Results: Yes Negative screen Recommended changes not done: EKG Patient refused: Yes Systolic BP not done?: No Diastolic BP not done?: No BMI screening not done: No Sexual Activity Screening ([facility] 153) Sexually active?: No Immunizations ([facility] 147, 117) Annual Influenza Vaccine: Yes Measles Antibody Test: No Mumps Antibody Test: No Rubella Antibody Test: No Varicella Antibody Test: No Anti Hepatitis A IgG Antigen test: No Anti Hepatitis B Virus Surface Ab test: No Fall Risk Screening ([facility] 139) Last assessed Fall Risk: 12/25/23 Fall risk assessment: No Falls in past year Dementia Assessment ([facility] 149) Cognitive assessment recorded: No (Prefers to make jokes during exam; therefore data is not clinically sig.) Reason not done: patient reason Assessment of cognition with standardized tool: Yes Depression/Bipolar (159/160/161/177) PHQ-9: Total score: 7 Ophthalmol:Cataracts Visual Acuity (133) Visual acuity exam performed: Yes (see results) Coding Level of Care Code Medicare Subsequent (G0439) Est Pt Level 4 (04156) Diagnoses Encounter for subsequent annual wellness visit (AWV) in Medicare patient Z00.00 Chronic pain syndrome G89.4 Chronic pain type: chronic pain syndrome Hemorrhoids, unspecified hemorrhoid type K64.9 Hemorrhoid type: unspecified Hard of hearing H91.90 Impacted cerumen, bilateral H61.23 ACP (advance care planning) Z71.89 Anemia due to vitamin B12 deficiency, unspecified B12 deficiency type D51.9 Vitamin B12 deficiency anemia type: unspecified B12 deficiency Age-related nuclear cataract of both eyes H25.13 Cataract type: age-related Age-related cataract type: nuclear 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 Dyskinesia presence: with dyskinesia Fluctuating manifestations: with fluctuating manifestations Mild episode of recurrent major depressive disorder F33.0 Major depression episode severity: mild FABIENNE (generalized anxiety disorder) F41.1 Chronic idiopathic constipation K59.04 Constipation type: chronic idiopathic constipation Pancytopenia D61.818 Mixed hyperlipidemia E78.2 Hyperlipidemia type: mixed hyperlipidemia CPT Codes Advance Care Planning - Time spent: 1-15 minutes, not on file ([id number]) EKG - CPT: 75502-[id number], Complete ([id number]) Coding - Hearing Test Screenin - Screening Test, pure tone, air only ([id number]) Vision Screening - Vision Screenin - Vision Screening ([id number]) Additional Codes PHQ-9 - 17421 - PHQ-9 Billing: Yes ([id number]) Advance Care Planning Advance Care Planning discussion: Exists, not on file Date of discussion: 12/25/23 Who was present: self and day care home provider Forms completed: Health Care Proxy, MOLST and Living will Time spent: 1-15 minutes, not on file Actual minutes spent: 5 Did not discuss due to Cultural/Spiritual beliefs: Yes
[2023-12-24 12:19] VITALS: BP 134/70; PULSE 81; RESP 14; O2SAT 98; BMI 24.4
== END 2023-12-24 13:24 | disposition home or self-care (01) ==
LOC: HO.HMCFM 12:00
PROVIDERS: PCP Family Medicine; Visit Provider Nurse Practitioner Family
DX: Z00.00 Encounter for general adult medical examination without abnormal findings (principal); G89.4 Chronic pain syndrome; K64.9 Unspecified hemorrhoids; G20.B2 Parkinson's disease with dyskinesia, with fluctuations; D61.818 Other pancytopenia; F33.0 Major depressive disorder, recurrent, mild; H61.23 Impacted cerumen, bilateral; Z71.89 Other specified counseling; D51.9 Vitamin B12 deficiency anemia, unspecified; H25.13 Age-related nuclear cataract, bilateral; F41.1 Generalized anxiety disorder; K59.04 Chronic idiopathic constipation

== ENCOUNTER → 2023-12-24 11:59 | Outpatient (BNVA) | payer OTHER, SELFPAY | PROVIDERS: PCP Family Medicine; Visit Provider Nurse Practitioner Family | DX: Z00.01 Encounter for general adult medical examination with abnormal findings (principal); Z13.1 Encounter for screening for diabetes mellitus; G89.4 Chronic pain syndrome; K64.9 Unspecified hemorrhoids; H61.23 Impacted cerumen, bilateral; D51.9 Vitamin B12 deficiency anemia, unspecified; H25.13 Age-related nuclear cataract, bilateral; G20.B2 Parkinson's disease with dyskinesia, with fluctuations; F33.0 Major depressive disorder, recurrent, mild; F41.1 Generalized anxiety disorder; K59.04 Chronic idiopathic constipation; D61.818 Other pancytopenia; E78.2 Mixed hyperlipidemia; Z71.89 Other specified counseling | CPT/HCPCS: 83036; 93005; 96127; 99212 ==

== ENCOUNTER 2024-01-02 13:34 | Outpatient (AMB) | payer OTHER, SELFPAY ==
--- NOTE | 2024-01-02 13:36 | MHC.OFFVIS ---
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 Patient denies any recent falls, trauma, or injury. He recently completed formal physical therapy for gait imbalance training with some improvement. Patient is accompanied by SALES SOLUTIONS REPRESENTATIVE Aicha. Denies any previous spine or joint injections or surgery. SALES SOLUTIONS REPRESENTATIVE reports patient has increased limping, shuffling gait and dragging his feet due to Parkinson's. He follows with Dr. Isbell at [facility]. Patient experiences chronic pain in neck, arms, shoulders, and legs with daily activities, functioning, walking, movements and cold weather. Pain is constant and is rated at 9/10. Patient has been managing pain with Tylenol, NSAIDs, topical applications and gabapentin with partial relief. SALES SOLUTIONS REPRESENTATIVE reports patient was under better pain control with low dose oxycodone over 5-6 years which allowed him to be less symptomatic and more functional. Patient also reports significant concerns in his neck and arms due to Parkinsons. Denies any fever or chills, rash, infection, constipation, sedations, nausea, vomiting, abdominal pain, chest pain, shortness of breaths, bladder or bowel dysfunction or saddle anesthesia. Location: Neck, shoulders, knee, bilateral legs Duration: Chronic pain worsening for past 5 years Characteristics of symptom or complaint: Aching, tingling, numbness, weakness, throbbing, sharp, heavy Aggravating or associated factors: Walking, movements, prolonged sitting or standing, laying, sleeping Relieving factors: Minimal relief with gabapentin, NSAIDs, Tylenol, heat therapy, topicals Treatment: Physical therapy [facility] Medical History (Updated 01/04/24 @ 19:24 by TORI Still) Progressive supranuclear palsy Thrombocytopenia Depression with anxiety Lower extremity weakness Left wrist pain Generalized weakness Osteoporosis Arthritis Surgical History No pertinent past surgical history Social History Housing: Assisted Living Facility Alcohol intake: never Patient Tobacco Use Status: Never used Tobacco e-Cigarette/Vaping Use: Never Used Second Hand Smoke Exposure: No service: No Current occupational status: retired and disabled Current occupational exposures/hazards: No Cognitive needs: Yes (cane) Hearing needs: Yes Vision needs: No Review of Systems Const All systems reviewed & are unremarkable except as noted in HPI and below Physical Exam Vital Signs: Last Vital Signs Pulse 81 01/02/24 13:43 BP 117/116 H 01/02/24 13:43 Pulse Ox 98 01/02/24 13:43 Oxygen Delivery Method Room Air 01/02/24 13:43 BMI result Body Mass Index 26.0 General: Appears afebrile. Alert and oriented. Mood and affect appropriate. Follows and participates in conversation appropriately. Respiratory effort is unlabored. No cough. Able to transition from sit to stand unassisted. Uses cane/walker. Neck Neck: Yes no lymphadenopathy, Yes supple, No anterior neck swelling, Yes no JVD, No prominent supraclavicular fat pad and No prominent dorsocervical fat pad General: Yes no CVA tenderness Back/Spine/Pelvis Back: no CVA tenderness Cervical Spine: loss of normal cervical lordosis, cervical muscular tenderness, pain with cervical ROM, No Cervical spine scars present, cervical spasm (right) and No Cervical spine tenderness Thoracic/Lumbar Spine: thoracic and lumbar spine normal to inspection and Thoracic/lumbar spine scar(s) Extrem General: Yes capillary refill normal, Yes no clubbing, cyanosis or edema and Yes no calf tenderness Quality Reporting (2020) Adult ([facility] 138/04/10/68) Smoking risk assessment performed?: Yes Patient Tobacco Use Status: Never used Tobacco Results Reviewed Results Reviewed: XR SHOULDER, RIGHT 01/21/22 CLINICAL INFORMATION: Right shoulder pain. FINDINGS: There is no evidence of acute fracture or dislocation of the right shoulder. There is degenerative spurring about the glenohumeral joint. There is also noted to be some cartilage calcification about the humeral head with appearance of possible chondrocalcinosis. No widening of the coracoclavicular space is seen. IMPRESSION: Degenerative change of the glenohumeral joint. XR KNEE, LEFT 01/21/22 CLINICAL INFORMATION: Left knee pain. FINDINGS: There is no evidence of acute fracture or dislocation of the left knee. There is chondrocalcinosis present. There is mild narrowing of the medial joint space compartment. There is degenerative change of the patellofemoral joint with spurring of both the medial and lateral facets of the patella and some irregularity seen about the medial facet. There is spurring about the patellar site of insertion of the quadriceps tendon. No effusion is appreciated. Prominent vascular calcification is seen. IMPRESSION: Degenerative changes of the left knee predominantly at the patellofemoral joint. Chondrocalcinosis. XR CERVICAL SPINE 01/21/22 CLINICAL INFORMATION: Pain. FINDINGS: No abnormal prevertebral soft tissue swelling is seen. There is loss of the normal cervical spine lordosis. There is significant disc space narrowing present with marginal spurring and bridging C3-C7. There is facet arthropathy seen throughout the C2-C7. Lucency is seen about the posterior aspect of the L2 vertebral body and facet which is likely related to artifact rather than a true fracture. IMPRESSION: Significant cervical spondylosis as described. Assessment & Plan Assessment & Plan (1) Cervical spondylosis: Code(s): M47.812 - Spondylosis without myelopathy or radiculopathy, cervical region Category: Medical (2) Disc disease, degenerative, cervical: Code(s): M50.30 - Other cervical disc degeneration, unspecified cervical region Category: Medical (3) Chronic pain: Code(s): G89.29 - Other chronic pain Category: Medical Qualifiers: Chronic pain type: chronic pain syndrome Qualified Code(s): G89.4 - Chronic pain syndrome (4) Parkinson disease: Code(s): G20.A1 - Parkinson's disease without dyskinesia, without mention of fluctuations Category: Medical Qualifiers: Dyskinesia presence: with dyskinesia Fluctuating manifestations: with fluctuating manifestations Qualified Code(s): G20.B2 - Parkinson's disease with dyskinesia, with fluctuations (5) Polyarthralgia: Code(s): M25.50 - Pain in unspecified joint Category: Medical (6) Cervicalgia: Code(s): M54.2 - Cervicalgia Category: Medical Plan 1. Schedule Bilateral Diagnostic C4-C5-C6 MBB with local, fluoroscopy and oral Ativan for cervical spondylosis for potential RFA procedures. Expectations, risks and benefits were reviewed. Patient and SALES SOLUTIONS REPRESENTATIVE are aware he will be contacted to schedule this procedure. 2. Neurology referral -second opinion per patient's request for potential Botox injections. 3. Will consider low dose oxycodone for chronic pain due to arthritis and degenerative changes in multiple pain generators, including neck, shoulders, arms/hands and needs. Patient agreed to have the UDS performed immediately after this appointment. Will provide short script of oxycodone with Narcan for moderate-severe pain. Side effects and precautions were discussed with patient and SALES SOLUTIONS REPRESENTATIVE. All questions were answered and she is agreeable to the plan. Follow up in 2 weeks for UDS review and sooner as needed. Orders: Referrals Neurology Referral G20.B2 - Parkinson's disease with dyskinesia, with fluctuations, G89.4 - Chronic pain syndrome Medications: New oxycodone Partial Fill upon patient request. 5 mg PO BID 10 days PRN 20 tabs 0RF pain (scale score 7-10) M47.812 - Spondylosis without myelopathy or radiculopathy, cervical region, M50.30 - Other cervical disc degeneration, unspecified cervical region naloxone 4 mg/actuation (Narcan) spray 1 dose into ONE nostril; alternate nostrils w each dose until help arrives 4 mg intranasal Q2M PRN 2 ea 0RF opioid overdose Changed From docusate sodium 100 mg PO BID PRN To docusate sodium 100 mg PO BID 30 days PRN 60 caps 0RF constipation Coding Level of Care Code New Pt Level 4 (40054) Complex EM visit Add On G2211 Diagnoses Cervical spondylosis M47.812 Disc disease, degenerative, cervical M50.30 Chronic pain syndrome G89.4 Chronic pain type: chronic pain syndrome 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 Dyskinesia presence: with dyskinesia Fluctuating manifestations: with fluctuating manifestations Polyarthralgia M25.50 Cervicalgia M54.2
[2024-01-02 13:43] VITALS: BP 117/116; PULSE 81; O2SAT 98; BMI 26.0
== END 2024-01-02 14:26 | disposition home or self-care (01) ==
PROVIDERS: PCP Family Medicine; Visit Provider Nurse Practitioner Family
DX: M47.812 Spondylosis without myelopathy or radiculopathy, cervical region (principal); M50.30 Other cervical disc degeneration, unspecified cervical region; G89.4 Chronic pain syndrome; G20.B2 Parkinson's disease with dyskinesia, with fluctuations; M25.50 Pain in unspecified joint; M54.2 Cervicalgia
CPT/HCPCS: 99204; G2211

== ENCOUNTER → 2024-01-02 13:34 | Outpatient (BNVA) | payer OTHER, SELFPAY | PROVIDERS: PCP Family Medicine; Visit Provider Nurse Practitioner Family | DX: M47.812 Spondylosis without myelopathy or radiculopathy, cervical region (principal); M50.30 Other cervical disc degeneration, unspecified cervical region; M25.50 Pain in unspecified joint; M54.2 Cervicalgia; G89.4 Chronic pain syndrome; G20.B2 Parkinson's disease with dyskinesia, with fluctuations | CPT/HCPCS: 99202 ==

== ENCOUNTER 2024-01-23 13:15 | Outpatient (AMB) | payer OTHER, SELFPAY ==
--- NOTE | 2024-01-23 13:38 | A.OFFVIS_ITS ---
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 Patient is accompanied by his INFORMATION SYSTEMS MANAGER. Patient reports he was getting out of bed with a railing and his hand slipped on the railing due to lotion on his hands and felt sudden severe pain to his left thumb and moderate pain in his back and right side of the scalp. Patient reports difficulty sleeping at night, difficulty with ADLs and mobility due to pain. INFORMATION SYSTEMS MANAGER reports patient did bump his head on the bed matress and when he fell but no LOC, dizziness, unusual behavior or increased unsteadiness. Patient reports increased neck pain since recent fall. He reports short script of oxycodone helped him significantly and he was able to sleep better at night. INFORMATION SYSTEMS MANAGER denies spine x-rays or brain CT or MRI taken at recent ER stay. Patient had x-ray of his left thumb which showed dislocation of distal phalanx of the left thumb, no evidence of associated fracture. He received digital nerve block and reduction with splinting and has upcoming Orthopedic follow-up for this. Patient is scheduled for diagnostic right sided cervical medial branch blocks on 02/12/[address] Negrete. Denies any recent cough, cold, infection, fever or any other significant changes in medical history since last office visit. PRIOR: Patient is 83-year-old male with history of arthritis, osteoporosis, Parkinson's, anxiety and depression, chronic left knee, right shoulder and neck pain, presents today for initial evaluation of chronic neck pain. Patient denies any recent falls, trauma, or injury. He recently completed formal physical therapy for gait imbalance training with some improvement. Patient is accompanied by INFORMATION SYSTEMS MANAGER Aicha. Denies any previous spine or joint injections or surgery. INFORMATION SYSTEMS MANAGER reports patient has increased limping, shuffling gait and dragging his feet due to Parkinson's. He follows with Dr. Isbell at [facility]. Patient experiences chronic pain in neck, arms, shoulders, and legs with daily activities, functioning, walking, movements and cold weather. Pain is constant and is rated at 9/10. Patient has been managing pain with Tylenol, NSAIDs, topical applications and gabapentin with partial relief. INFORMATION SYSTEMS MANAGER reports patient was under better pain control with low dose oxycodone over 5-6 years which allowed him to be less symptomatic and more functional. Patient also reports significant concerns in his neck and arms due to Parkinsons. Denies any fever or chills, rash, infection, constipation, sedations, nausea, vomiting, abdominal pain, chest pain, shortness of breaths, bladder or bowel dysfunction or saddle anesthesia. Location: Neck, shoulders, knee, bilateral legs Duration: Chronic pain worsening for past 5 years Characteristics of symptom or complaint: Aching, tingling, numbness, weakness, throbbing, sharp, heavy Aggravating or associated factors: Walking, movements, prolonged sitting or standing, laying, sleeping Relieving factors: Minimal relief with gabapentin, NSAIDs, Tylenol, heat therapy, topicals Treatment: Physical therapy [facility] Medical History Progressive supranuclear palsy Thrombocytopenia Depression with anxiety Lower extremity weakness Left wrist pain Generalized weakness Osteoporosis Arthritis Surgical History No pertinent past surgical history Social History Housing: Assisted Living Facility Alcohol intake: never Patient Tobacco Use Status: Never used Tobacco e-Cigarette/Vaping Use: Never Used Second Hand Smoke Exposure: No service: No Current occupational status: retired and disabled Current occupational exposures/hazards: No Cognitive needs: Yes (cane) Hearing needs: Yes Vision needs: No Review of Systems Const All systems reviewed & are unremarkable except as noted in HPI and below Physical Exam Vital Signs: Last Vital Signs Pulse 79 01/23/24 13:45 BP 164/107 H 01/23/24 13:45 Pulse Ox 97 01/23/24 13:45 Oxygen Delivery Method Room Air 01/23/24 13:45 General: Appears afebrile. No acute distress. Alert and oriented. Mood and affect appropriate. Pleasant. Hard of hearing bilaterally. Follows and participates in conversation appropriately. Respiratory effort is unlabored. No cough. Able to transition from sit to stand unassisted. Uses cane/walker. HEENT Head: Yes normal to inspection, Yes No palpable skull fracture present, Yes normocephalic, Yes atraumatic, No occipital foramen tenderness, Yes scalp tenderness (slight on right forehead), No Temporal artery tenderness present and No periorbital ecchymosis Face and sinus: Yes normal facial exam and Yes sinuses nontender Neck Neck: Yes no lymphadenopathy, Yes supple, No anterior neck swelling, Yes no JVD, No prominent supraclavicular fat pad and No prominent dorsocervical fat pad General: Yes no CVA tenderness Back/Spine/Pelvis Other: TTP over paraspinals from L4-S1. Repetitive lumbar flexion and axial rotation reproduces moderate pain. Mild midline tenderness to palpation in the thoracic or lumbar spine. Back: no CVA tenderness Cervical Spine: No Lhermitte's sign positive, loss of normal cervical lordosis, cervical muscular tenderness, pain with cervical ROM, No Cervical spine scars present, cervical spasm (right) and No Cervical spine tenderness Thoracic/Lumbar Spine: thoracic and lumbar spine normal to inspection, Thoracic/lumbar spine scar(s), Lasegue's sign negative, pain with thoraco-lumbar ROM, paraspinal muscle tenderness, thoraco-lumbar ROM limited, thoracic spinal tenderness and lumbar spinal tenderness Pelvis: no buttock tenderness Extrem General: Yes capillary refill normal, Yes no clubbing, cyanosis or edema and Yes no calf tenderness Left upper extremity: hand Details: normal capillary refill, tenderness Location: of the thumb, vascular exam Details: radial pulse present and normal capillary refill; not cool and no cyanosis, abnormal ROM of finger Details: pain with active ROM Location: of the thumb and unable to flex Location: of the thumb and swelling Location: of the thumb; no ecchymosis Quality Reporting (2020) Adult ([facility] 138/04/10/68) Smoking risk assessment performed?: Yes Patient Tobacco Use Status: Never used Tobacco Results Reviewed Results Reviewed: XR SHOULDER, RIGHT 01/21/22 CLINICAL INFORMATION: Right shoulder pain. FINDINGS: There is no evidence of acute fracture or dislocation of the right shoulder. There is degenerative spurring about the glenohumeral joint. There is also noted to be some cartilage calcification about the humeral head with appearance of possible chondrocalcinosis. No widening of the coracoclavicular space is seen. IMPRESSION: Degenerative change of the glenohumeral joint. XR KNEE, LEFT 01/21/22 CLINICAL INFORMATION: Left knee pain. FINDINGS: There is no evidence of acute fracture or dislocation of the left knee. There is chondrocalcinosis present. There is mild narrowing of the medial joint space compartment. There is degenerative change of the patellofemoral joint with spurring of both the medial and lateral facets of the patella and some irregularity seen about the medial facet. There is spurring about the patellar site of insertion of the quadriceps tendon. No effusion is appreciated. Prominent vascular calcification is seen. IMPRESSION: Degenerative changes of the left knee predominantly at the patellofemoral joint. Chondrocalcinosis. XR CERVICAL SPINE 01/21/22 CLINICAL INFORMATION: Pain. FINDINGS: No abnormal prevertebral soft tissue swelling is seen. There is loss of the normal cervical spine lordosis. There is significant disc space narrowing present with marginal spurring and bridging C3-C7. There is facet arthropathy seen throughout the C2-C7. Lucency is seen about the posterior aspect of the L2 vertebral body and facet which is likely related to artifact rather than a true fracture. IMPRESSION: Significant cervical spondylosis as described. Assessment & Plan Assessment & Plan (1) Mid back pain: Code(s): M54.9 - Dorsalgia, unspecified Category: Medical (2) Low back pain: Code(s): M54.50 - Low back pain, unspecified Category: Medical (3) Mid back pain: Code(s): M54.9 - Dorsalgia, unspecified Category: Medical (4) History of recent fall: Code(s): Z91.81 - History of falling Category: Medical (5) Headache: Code(s): R51.9 - Headache, unspecified Category: Medical (6) Cervical spondylosis: Code(s): M47.812 - Spondylosis without myelopathy or radiculopathy, cervical region Category: Medical (7) Disc disease, degenerative, cervical: Code(s): M50.30 - Other cervical disc degeneration, unspecified cervical region Category: Medical (8) Chronic pain: Code(s): G89.29 - Other chronic pain Category: Medical Qualifiers: Chronic pain type: chronic pain syndrome Qualified Code(s): G89.4 - Chronic pain syndrome (9) Cervicalgia: Code(s): M54.2 - Cervicalgia Category: Medical Plan Proceed with Bilateral Diagnostic C4-C5-C6 MBB as previously planned with local, fluoroscopy and oral Ativan for cervical spondylosis for potential RFA procedures. Lumbar and thoracic spine and hip imaging to assess degree of degenerative changes, any subluxation, listhesis, compression fractures or pars defects. Will also obtain head/brain CT with ongoing headache and residual right forehead pain s/p recent fall. Will consider low dose oxycodone for chronic pain due to arthritis and degenerative changes in multiple pain generators, including neck, shoulders, arms/hands and needs. Patient will complete UDS by 01/26/24 noon time. Previous short script of oxycodone was well tolerated by patient and per INFORMATION SYSTEMS MANAGER who reports patient was able to function and sleep better. All questions were answered and she is agreeable to the plan. Follow up in 2 weeks for UDS/xray review and sooner as needed. Orders: Orders XR thoracic spine 3V 01/23/24 M54.50 - Low back pain, unspecified, M54.9 - Dorsalgia, unspecified XR lumbar spine 4V min 01/23/24 M54.50 - Low back pain, unspecified, M54.9 - Dorsalgia, unspecified CT head/brain wo IV con 01/23/24 R51.9 - Headache, unspecified, Z91.81 - Histo ry of falling Medications: Discontinued oxycodone Partial Fill upon patient request. Discontinued Reason: Patient Completed Course 5 mg PO BID 10 days PRN 20 tabs 0RF pain (scale score 7-10) M47.812 - Spondylosis without myelopathy or radiculopathy, cervical region, M50.30 - Other cervical disc degeneration, unspecified cervical region naloxone 4 mg/actuation (Narcan) spray 1 dose into ONE nostril; alternate nostrils w each dose until help arrives Discontinued Reason: No Longer Medically Relevant 4 mg intranasal Q2M PRN 2 ea 0RF opioid overdose Coding Level of Care Code Est Pt Level 4 (65481) Complex EM visit Add On G2211 Diagnoses Mid back pain M54.9 Low back pain M54.50 History of recent fall Z91.81 Headache R51.9 Cervical spondylosis M47.812 Disc disease, degenerative, cervical M50.30 Chronic pain syndrome G89.4 Chronic pain type: chronic pain syndrome Cervicalgia M54.2
[2024-01-23 13:45] VITALS: BP 164/107; PULSE 79; O2SAT 97
== END 2024-01-23 14:17 | disposition home or self-care (01) ==
PROVIDERS: PCP Family Medicine; Visit Provider Nurse Practitioner Family
DX: M54.9 Dorsalgia, unspecified (principal); M54.50 Low back pain, unspecified; Z91.81 History of falling; R51.9 Headache, unspecified; M47.812 Spondylosis without myelopathy or radiculopathy, cervical region; M50.30 Other cervical disc degeneration, unspecified cervical region; G89.4 Chronic pain syndrome; M54.2 Cervicalgia
CPT/HCPCS: 99214; G2211

== ENCOUNTER 2024-01-23 13:15 | Outpatient (REF) | payer OTHER, SELFPAY ==
--- NOTE | ~2024-01-23 | XR_ITS ---
EXAMINATION: XR LUMBAR SPINE CLINICAL INFORMATION: Dorsalgia, unspecified - M25.551. COMPARISON: CT abdomen/pelvis with IV contrast 06/18/2019. TECHNIQUE: 5 views of the lumbar spine. FINDINGS: Dextrocurvature of the lumbar spine. The lumbar lordosis is maintained. No acute fracture or subluxation. No loss of vertebral body height. Multilevel loss of intervertebral disc height with endplate osteophytes, most severe at L5-S1. Prominent multilevel bilateral facet arthropathy. No concerning lytic or blastic osseous lesion. Moderate stool burden. XR/XR lumbar spine 4V min IMPRESSION: 1. Dextrocurvature of the lumbar spine. 2. Multilevel degenerative disc disease, most severe at L5-S1. Prominent multilevel bilateral facet arthropathy. Electronically signed by: Tommy Moya MD 02/10/2024 09:43 AM [place]
--- NOTE | ~2024-01-23 | XR_ITS ---
EXAMINATION: XR THORACIC SPINE CLINICAL INFORMATION: Back pain. COMPARISON: None available. TECHNIQUE: 3 views of the thoracic spine were obtained. FINDINGS: Normal vertebral body alignment. The thoracic kyphosis is maintained. No acute fracture or subluxation. No loss of vertebral body height. Moderate multilevel loss of intervertebral disc height with anterior endplate osteophytes. No concerning lytic or blastic osseous lesion. The visualized lungs are clear. XR/XR thoracic spine 3V IMPRESSION: Moderate multilevel degenerative disc disease. Electronically signed by: Tommy Moya MD 02/10/2024 09:43 AM [place]
== END 2024-01-23 13:16 | disposition home or self-care (01) ==
LOC: HO.XRAY 13:15
PROVIDERS: PCP Family Medicine; Visit Provider Nurse Practitioner Family
DX: M54.50 Low back pain, unspecified (principal); M54.9 Dorsalgia, unspecified; Z91.81 History of falling; R51.9 Headache, unspecified; M47.812 Spondylosis without myelopathy or radiculopathy, cervical region; G89.4 Chronic pain syndrome; M54.2 Cervicalgia
CPT/HCPCS: 72072; 72110; 99212

== ENCOUNTER 2024-01-26 09:48 | Outpatient (REF) | payer OTHER, SELFPAY | END 2024-01-26 09:49 | disposition home or self-care (01) | LOC: HO.LAB 09:48 | PROVIDERS: PCP Family Medicine; Visit Provider Nurse Practitioner Family | DX: Z13.89 Encounter for screening for other disorder (principal) ==

== ENCOUNTER 2024-01-29 06:05 | Outpatient (REF) | payer OTHER, SELFPAY | END 2024-01-29 06:06 | disposition home or self-care (01) | LOC: CF 06:05 | PROVIDERS: Visit Provider Internal Medicine | DX: Z13.89 Encounter for screening for other disorder (principal) ==

== ENCOUNTER 2024-02-09 13:52 | Outpatient (AMB) | payer OTHER, SELFPAY ==
--- NOTE | 2024-02-09 13:56 | A.OFFVIS_ITS ---
Vital Signs 02/09/24 14:06 02/09/24 14:06 Height 5 ft 2 in BP 176/112 H 167/94 H Blood Pressure Location Lt brachial Rt brachial Position Sitting Sitting Pulse 94 Pulse Source Pulse Oximeter Pulse Oximetry (%) 96 Oxygen Delivery Method Room Air Intake Visit Reasons: UDS Review/X-Ray Guncot[employer] Packer Required: No Accompanied by: Other Relationship Allergies No Known Allergies Allergy (Verified 01/23/24 13:44) HPI Comments Details: Patient presents for UDS review and opioid contract paperwork review. UDS was consistent. Per risk assessment, he is at moderate risk for adverse effects from opioids. PHQ score was 10. Detailed risk assessment scanned under activity tab. Contract reviewed and signed with patient and his DIRECTOR [employer] MARKET[employer] with whom patient resides. Denies any recent cough, cold, infection, fever or other significant changes in medical history since last office visit. Pending thoracic and lumbar spine imaging results. Xrays were completed on 01/23/24 at [facility]. Patient is scheduled for right side diagnostic cervical medial branch block on 02/12/24. PHQ-9 SCORE: 10 OPIOID RISK STRATIFICATION SURVEY SCORE: 16 Given this, patient is deemed to be a MODERATE RISK for chronic opioid addiction. Educated patient on intermodal customer service effects of opioid use including sexual dysfunction, cardiac, renal and immunosuppressive effects. The patient understands that the medication he is requesting is an opioid, which carries risks of dependence, tolerance, hyperalgesia, addiction, respiratory failure and possibly . Patient verbalized understanding of this and accepted these risks on his own volition. The patient accepts the responsibility to adhere to the opioid medication use agreement. There is no evidence of misuse, abuse or diversion at this time. Patient is aware he will be required to attend monthly pill counts and if there are any discrepancies, because of her risk of addiction she will be suspended for ONE YEAR. PRIOR: Patient presents today for follow up after recent [facility] ER visit on 01/06/24 s/p mechanical fall at home. Patient is accompanied by his DIRECTOR [employer]. Patient reports he was getting out of bed with a railing and his hand slipped on the railing due to lotion on his hands and felt sudden severe pain to his left thumb and moderate pain in his back and right side of the scalp. Patient reports difficulty sleeping at night, difficulty with ADLs and mobility due to pain. [employer] reports patient did bump his head on the bed matress and when he fell but no LOC , dizziness, unusual behavior or increased unsteadiness. Patient reports increased neck pain since recent fall. He reports short script of oxycodone helped him significantly and he was able to sleep better at night. [employer]OR [employer] denies spine x-rays or brain CT or MRI taken at recent ER stay. Patient had x-ray of his left thumb which showed dislocation of distal phalanx of the left thumb, no evidence of associated fracture. He received digital nerve block and reduction with splinting and has upcoming Orthopedic follow-up for this. Patient is scheduled for diagnostic right sided cervical medial branch blocks on 02/12/[address] Negrete. Denies any recent cough, cold, infection, fever or any other significant changes in medical history since last office visit. PRIOR: Patient is 83-year-old male with history of arthritis, osteoporosis, Parkinson's, anxiety and depression, chronic left knee, right shoulder and neck pain, presents today for initial evaluation of chronic neck pain. Patient denies any recent falls, trauma, or injury. He recently completed formal physical therapy for gait imbalance training with some improvement. Patient is accompanied by JOEL Holcomb. Denies any previous spine or joint injections or surgery. [employer] reports patient has increased limping, shuffling gait and dragging his feet due to Parkinson's. He follows with Dr. Isbell at [facility]. Patient experiences chronic pain in neck, arms, shoulders, and legs with daily activities, functioning, walking, movements and cold weather. Pain is constant and is rated at 9/10. Patient has been managing pain with Tylenol, NSAIDs, topical applications and gabapentin with partial relief. [employer] reports patient was under better pain control with low dose oxycodone over 5-6 years which allowed him to be less symptomatic and more functional. Patient also reports significant concerns in his neck and arms due to Parkinsons. Denies any fever or chills, rash, infection, constipation, sedations, nausea, vomiting, abdominal pain, chest pain, shortness of breaths, bladder or bowel dysfunction or saddle anesthesia. Location: Neck, shoulders, knee, bilateral legs Duration: Chronic pain worsening for past 5 years Characteristics of symptom or complaint: Aching, tingling, numbness, weakness, throbbing, sharp, heavy Aggravating or associated factors: Walking, movements, prolonged sitting or standing, laying, sleeping Relieving factors: Minimal relief with gabapentin, NSAIDs, Tylenol, heat therapy, topicals Treatment: Physical therapy [facility] Medical History Progressive supranuclear palsy Thrombocytopenia Depression with anxiety Lower extremity weakness Left wrist pain Generalized weakness Osteoporosis Arthritis Surgical History No pertinent past surgical history Social History Housing: Assisted Living Facility Alcohol intake: never Patient Tobacco Use Status: Never used Tobacco e-Cigarette/Vaping Use: Never Used Second Hand Smoke Exposure: No service: No Current occupational status: retired and disabled Current occupational exposures/hazards: No Cognitive needs: Yes (cane) Hearing needs: Yes Vision needs: No Review of Systems Const All systems reviewed & are unremarkable except as noted in HPI and below Physical Exam General: Appears afebrile. Alert and oriented. Mood and affect appropriate. Hard of hearing bilaterally. Follows and participates in conversation appropriately. Respiratory effort is unlabored. No cough. Able to transition from sit to stand unassisted. Uses cane/walker. Neck Neck: Yes no lymphadenopathy, Yes supple, No anterior neck swelling, Yes no JVD, No prominent supraclavicular fat pad and No prominent dorsocervical fat pad General: Yes no CVA tenderness Back/Spine/Pelvis Other: Limited lumbar ROM due to pain. Repetitive lumbar flexion and axial rotation reproduces moderate pain. Back: no CVA tenderness Cervical Spine: No Lhermitte's sign positive, loss of normal cervical lordosis, cervical muscular tenderness, pain with cervical ROM, No Cervical spine scars present, cervical spasm (right) and No Cervical spine tenderness Thoracic/Lumbar Spine: thoracic and lumbar spine normal to inspection, Thoracic/lumbar spine scar(s), Lasegue's sign negative, straight leg raise negative bilaterally, pain with thoraco-lumbar ROM, paraspinal muscle tenderness, thoraco-lumbar ROM limited, thoracic spinal tenderness and lumbar spinal tenderness Pelvis: no buttock tenderness Extrem General: Yes capillary refill normal, Yes no clubbing, cyanosis or edema and Yes no calf tenderness Left upper extremity: hand Details: normal capillary refill, tenderness Location: of the thumb, vascular exam Details: radial pulse present and normal capillary refill; not cool and no cyanosis, abnormal ROM of finger Details: pain with active ROM Location: of the thumb and unable to flex Location: of the thumb and swelling Location: of the thumb; no ecchymosis Psych Appearance: grossly normal Mental Status: mental status grossly normal and other (Forgetful. Lives with DIRECTOR [employer] 24/7 care) Speech and movement: Normal speech and movement present Affect: normal affect Attitude: cooperative Thought process: Normal thought process present Thought content: Normal thought content present, suicidality (none), no hallucinations and Depressive thoughts present Insight: Fair insight present (Psych) Judgement: Fair judgement present (Psych) Quality Reporting (2019) Adult ([facility] ) Smoking risk assessment performed?: Yes Patient Tobacco Use Status: Never used Tobacco Results Reviewed Results Reviewed: XR SHOULDER, RIGHT 01/21/22 CLINICAL INFORMATION: Right shoulder pain. FINDINGS: There is no evidence of acute fracture or dislocation of the right shoulder. There is degenerative spurring about the glenohumeral joint. There is also noted to be some cartilage calcification about the humeral head with appearance of possible chondrocalcinosis. No widening of the coracoclavicular space is seen. IMPRESSION: Degenerative change of the glenohumeral joint. XR KNEE, LEFT 01/21/22 CLINICAL INFORMATION: Left knee pain. FINDINGS: There is no evidence of acute fracture or dislocation of the left knee. There is chondrocalcinosis present. There is mild narrowing of the medial joint space compartment. There is degenerative change of the patellofemoral joint with spurring of both the medial and lateral facets of the patella and some irregularity seen about the medial facet. There is spurring about the patellar site of insertion of the quadriceps tendon. No effusion is appreciated. Prominent vascular calcification is seen. IMPRESSION: Degenerative changes of the left knee predominantly at the patellofemoral joint. Chondrocalcinosis. XR CERVICAL SPINE 01/21/22 CLINICAL INFORMATION: Pain. FINDINGS: No abnormal prevertebral soft tissue swelling is seen. There is loss of the normal cervical spine lordosis. There is significant disc space narrowing present with marginal spurring and bridging C3-C7. There is facet arthropathy seen throughout the C2-C7. Lucency is seen about the posterior aspect of the L2 vertebral body and facet which is likely related to artifact rather than a true fracture. IMPRESSION: Significant cervical spondylosis as described. Assessment & Plan Assessment & Plan (1) Low back pain: Code(s): M54.50 - Low back pain, unspecified Category: Medical (2) Cervical spondylosis: Code(s): M47.812 - Spondylosis without myelopathy or radiculopathy, cervical region Category: Medical (3) Disc disease, degenerative, cervical: Code(s): M50.30 - Other cervical disc degeneration, unspecified cervical region Category: Medical (4) Chronic pain: Code(s): G89.29 - Other chronic pain Category: Medical Qualifiers: Chronic pain type: chronic pain syndrome Qualified Code(s): G89.4 - Chronic pain syndrome Plan Proceed with Bilateral Diagnostic C4-C5-C6 MBB as previously planned 02/12/24 with local, fluoroscopy and oral Ativan for cervical spondylosis for potential RFA procedures. Lumbar and thoracic spine pending results. Xrays were completed 01/23/24 at [facility]. Patient presents for UDS review and opioid contract paperwork review. UDS was consistent. Per risk assessment, he is at moderate risk for adverse effects from opioids. PHQ score was 10. Detailed risk assessment scanned under activity tab. Contract reviewed and signed. Script provided for oxycodone 5 mg TID prn for moderate-severe pain. Side effects and precautions were discussed with patient and [employer]OR [employer]. Encouraged adequate daily hydration and dietary fiber. Narcan sent today. All questions were answered and she is agreeable to the plan. Follow up in 2 weeks after injections/pill count and sooner as needed. Medications: Changed From oxycodone Partial Fill upon patient request. 5 mg PO BID PRN 20 tabs 0RF pain (scale score 7-10) 10 days M47.812 - Spondylosis without myelopathy or radiculopathy, cervical region, M50.30 - Other cervical disc degeneration, unspecified cervical region To oxycodone Partial Fill upon patient request. 5 mg PO TID 30 days PRN 90 tabs 0RF pain (scale score 7-10) M47.812 - Spondylosis without myelopathy or radiculopathy, cervical region, M50.30 - Other cervical disc degeneration, unspecified cervical region Coding Level of Care Code Est Pt Level 4 (21131) Complex EM visit Add On G2211 Diagnoses Low back pain M54.50 Cervical spondylosis M47.812 Disc disease, degenerative, cervical M50.30 Chronic pain syndrome G89.4 Chronic pain type: chronic pain syndrome
[2024-02-09 14:06] VITALS: BP 167/94; BP 176/112; PULSE 94; O2SAT 96
== END 2024-02-09 14:33 | disposition home or self-care (01) ==
PROVIDERS: PCP Family Medicine; Visit Provider Nurse Practitioner Family
DX: M54.50 Low back pain, unspecified (principal); M47.812 Spondylosis without myelopathy or radiculopathy, cervical region; M50.30 Other cervical disc degeneration, unspecified cervical region; G89.4 Chronic pain syndrome
CPT/HCPCS: 99214; G2211

== ENCOUNTER → 2024-02-09 13:52 | Outpatient (BNVA) | payer OTHER, SELFPAY | PROVIDERS: PCP Family Medicine; Visit Provider Nurse Practitioner Family | DX: M54.50 Low back pain, unspecified (principal); M47.812 Spondylosis without myelopathy or radiculopathy, cervical region; M50.30 Other cervical disc degeneration, unspecified cervical region; G89.4 Chronic pain syndrome | CPT/HCPCS: 99212 ==

== ENCOUNTER 2024-02-12 13:05 | Outpatient (AMB) | payer OTHER, SELFPAY ==
--- NOTE | 2024-02-12 13:06 | A.OFFVIS_ITS ---
Vital Signs 02/12/24 13:07 02/12/24 13:33 BP 142/86 H 153/87 H Blood Pressure Location Rt brachial Rt brachial Position Sitting Sitting Pulse 88 100 Pulse Source Pulse Oximeter Pulse Oximeter Pulse Oximetry (%) 97 96 Oxygen Delivery Method Room Air Room Air Intake Visit Reasons: Right Dx C4-C5-C6 MBB Allergies No Known Allergies Allergy (Verified 01/23/24 13:44) HPI HPI Right Dx C4-C5-C6 MBB: Details: Patient presents for scheduled procedure. Denies any recent cough, cold, infection, fever or other significant changes in medical history since last o ffice visit. [facility] Medical History Progressive supranuclear palsy Thrombocytopenia Depression with anxiety Lower extremity weakness Left wrist pain Generalized weakness Osteoporosis Arthritis Surgical History No pertinent past surgical history Social History Housing: Assisted Living Facility Alcohol intake: never Patient Tobacco Use Status: Never used Tobacco e-Cigarette/Vaping Use: Never Used Second Hand Smoke Exposure: No service: No Current occupational status: retired and disabled Current occupational exposures/hazards: No Cognitive needs: Yes (cane) Hearing needs: Yes Vision needs: No Physical Exam Vital Signs: Last Vital Signs Pulse 100 02/12/24 13:33 BP 153/87 H 02/12/24 13:33 Pulse Ox 96 02/12/24 13:33 Oxygen Delivery Method Room Air 02/12/24 13:33 Quality Reporting (2019) Adult ([facility] 138//) Smoking risk assessment performed?: Yes Patient Tobacco Use Status: Never used Tobacco Assessment & Plan Assessment & Plan (1) Parkinson disease: Code(s): G20.A1 - Parkinson's disease without dyskinesia, without mention of fluctuations Category: Medical Qualifiers: Dyskinesia presence: with dyskinesia Fluctuating manifestations: with fluctuating manifestations Qualified Code(s): G20.B2 - Parkinson's disease with dyskinesia, with fluctuations Plan Patient is status post attempted right cervical facet blocks. He was unable to tolerate the procedure due to involuntary dyskinetic symptoms that precluded steph ropriate/safe needle placement. The procedure was therefore aborted. I recommended he follow-up with his neurologist for consideration of Botox injections for his neck muscle spasms. He has not previously had Botox injections. Follow-up as needed. Orders: Orders [place] guidance in treatment room Today M47.812 - Spondylosis without myelopathy or radiculopathy, cervical region Coding Level of Care Code Est Pt Level 3 (69628) Diagnoses 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 Dyskinesia presence: with dyskinesia Fluctuating manifestations: with fluctuating manifestations
[2024-02-12 13:07] VITALS: BP 142/86; PULSE 88; O2SAT 97
[2024-02-12 13:33] VITALS: BP 153/87; PULSE 100; O2SAT 96
== END 2024-02-12 13:33 | disposition home or self-care (01) ==
PROVIDERS: PCP Family Medicine; Visit Provider Internal Medicine
DX: G20.B2 Parkinson's disease with dyskinesia, with fluctuations (principal)
CPT/HCPCS: 99213

== ENCOUNTER 2024-03-01 09:09 | Outpatient (AMB) | payer OTHER, SELFPAY ==
--- NOTE | 2024-03-01 09:14 | MHC.OFFVIS ---
Vital Signs 03/01/24 09:24 Height 5 ft 2 in BMI Reason not done Patient refused/unable BP 143/87 H Blood Pressure Location Lt brachial Position Sitting Pulse 87 Pulse Source Pulse Oximeter Pulse Oximetry (%) 96 Oxygen Delivery Method Room Air Intake Visit Reasons: pill count r/s from 02/18/23 Intake Note: Brad comes in today for a pill count to oxycodone, patient should have 27 tablets and presents with [address] advocate states he last took today 03/01/24 at 8am. Licensed Massage Therapist states that his pain is 7/10 today. Patient and court advocate resigned opioid contracts in office today 03/01/24, copy of signed contracts was provided to patient. Chief Of Pediatric Urology Required: No Accompanied by: court advocate Allergies No Known Allergies Allergy (Verified 03/01/24 09:25) HPI Comments Details: Patient presents today for a pill count. Patient is supposed to have #27 pills, in his possession has #25 pills. This demonstrates a responsible attitude in regards to the medication regimen. Patient reports adequate analgesia on current medication regime. Denies any fever, chills, weight loss, shortness of breaths, chest pain, nausea, sedation, dizziness, or urinary retention except occasional constipation. FORENSIC INVESTIGATOR reports patient has been taking regular stool softener, dietary fiber, and intermittently laxatives. Patient states he has an increased ability to perform activities of daily living, interact socially and be more functional. Patient attempted right cervical facet blocks on 02/12/[address] Negrete. However, he was unable to tolerate the procedure and due to involuntary dyskinetic symptoms that precluded appropriate/safe needle placement the procedure was aborted per Dr. Negrete. We placed referral to Neurology for consideration of Botox injections for his neck muscle spasms, pending scheduling. Denies any recent cough, cold, infection, fever or any other significant changes in medical history since last office visit. PRIOR: Patient presents for UDS review and opioid contract paperwork review. UDS was consistent. Per risk assessment, he is at moderate risk for adverse effects from opioids. PHQ score was 10. Detailed risk assessment scanned under activity tab. Contract reviewed and signed with patient and his FORENSIC INVESTIGATOR with whom patient resides. Denies any recent cough, cold, infection, fever or other significant changes in medical history since last office visit. Pending thoracic and lumbar spine imaging results. Xrays were completed on 01/23/24 at [facility]. Patient is scheduled for right side diagnostic cervical medial branch block on 02/12/24. PHQ-9 SCORE: 10 OPIOID RISK STRATIFICATION SURVEY SCORE: 16 Given this, patient is deemed to be a MODERATE RISK for chronic opioid addiction. Educated patient on rodent exterminator effects of opioid use including sexual dysfunction, cardiac, renal and immunosuppressive effects. The patient understands that the medication he is requesting is an opioid, which carries risks of dependence, tolerance, hyperalgesia, addiction, respiratory failure and possibly . Patient verbalized understanding of this and accepted these risks on his own volition. The patient accepts the responsibility to adhere to the opioid medication use agreement. There is no evidence of misuse, abuse or diversion at this time. Patient is aware he will be required to attend monthly pill counts and if there are any discrepancies, because of her risk of addiction she will be suspended for ONE YEAR. PRIOR: Patient presents today for follow up after recent [facility] ER visit on 01/06/24 s/p mechanical fall at home. Patient is accompanied by his FORENSIC INVESTIGATOR. Patient reports he was getting out of bed with a railing and his hand slipped on the railing due to lotion on his hands and felt sudden severe pain to his left thumb and moderate pain in his back and right side of the scalp. Patient reports difficulty sleeping at night, difficulty with ADLs and mobility due to pain. FORENSIC INVESTIGATOR reports patient did bump his head on the bed matress and when he fell but no LOC, dizziness, unusual behavior or increased unsteadiness. Patient reports increased neck pain since recent fall. He reports short script of oxycodone helped him significantly and he was able to sleep better at night. FORENSIC INVESTIGATOR denies spine x-rays or brain CT or MRI taken at recent ER stay. Patient had x-ray of his left thumb which showed dislocation of distal phalanx of the left thumb, no evidence of associated fracture. He received digital nerve block and reduction with splinting and has upcoming Orthopedic follow-up for this. Patient is scheduled for diagnostic right sided cervical medial branch blocks on 02/12/[address] Negrete. Denies any recent cough, cold, infection, fever or any other significant changes in medical history since last office visit. PRIOR: Patient is 83-year-old male with history of arthritis, osteoporosis, Parkinson's, anxiety and depression, chronic left knee, right shoulder and neck pain, presents today for initial evaluation of chronic neck pain. Patient denies any recent falls, trauma, or injury. He recently completed formal physical therapy for gait imbalance training with some improvement. Patient is accompanied by JOEL Holcomb. Denies any previous spine or joint injections or surgery. FORENSIC INVESTIGATOR reports patient has increased limping, shuffling gait and dragging his feet due to Parkinson's. He follows with Dr. Isbell at [facility]. Patient experiences chronic pain in neck, arms, shoulders, and legs with daily activities, functioning, walking, movements and cold weather. Pain is constant and is rated at 9/10. Patient has been managing pain with Tylenol, NSAIDs, topical applications and gabapentin with partial relief. FORENSIC INVESTIGATOR reports patient was under better pain control with low dose oxycodone over 5-6 years which allowed him to be less symptomatic and more functional. Patient also reports significant concerns in his neck and arms due to Parkinsons. Denies any fever or chills, rash, infection, constipation, sedations, nausea, vomiting, abdominal pain, chest pain, shortness of breaths, bladder or bowel dysfunction or saddle anesthesia. Location: Neck, shoulders, knee, bilateral legs Duration: Chronic pain worsening for past 5 years Characteristics of symptom or complaint: Aching, tingling, numbness, weakness, throbbing, sharp, heavy Aggravating or associated factors: Walking, movements, prolonged sitting or standing, laying, sleeping Relieving factors: Minimal relief with gabapentin, NSAIDs, Tylenol, heat therapy, topicals Treatment: Physical therapy [facility] Medical History Progressive supranuclear palsy Thrombocytopenia Depression with anxiety Lower extremity weakness Left wrist pain Generalized weakness Osteoporosis Arthritis Surgical History No pertinent past surgical history Social History Housing: Assisted Living Facility Alcohol intake: never Patient Tobacco Use Status: Never used Tobacco e-Cigarette/Vaping Use: Never Used Second Hand Smoke Exposure: No service: No Current occupational status: retired and disabled Current occupational exposures/hazards: No Cognitive needs: Yes (cane) Hearing needs: Yes Vision needs: No Review of Systems Const All systems reviewed & are unremarkable except as noted in HPI and below Physical Exam Vital Signs: Last Vital Signs Pulse 87 03/01/24 09:24 BP 143/87 H 03/01/24 09:24 Pulse Ox 96 03/01/24 09:24 Oxygen Delivery Method Room Air 03/01/24 09:24 General: Appears afebrile. Alert and oriented. Mood and affect appropriate. Hard of hearing bilaterally. Follows and participates in conversation appropriately. Respiratory effort is unlabored. No cough. Able to transition from sit to stand unassisted. Uses cane/walker. Neck Neck: Yes no lymphadenopathy, Yes supple, No anterior neck swelling, Yes no JVD, No prominent supraclavicular fat pad and No prominent dorsocervical fat pad Back/Spine/Pelvis Cervical Spine: loss of normal cervical lordosis, cervical muscular tenderness, pain with cervical ROM, No Cervical spine scars present, cervical spasm (right) and No Cervical spine tenderness Thoracic/Lumbar Spine: thoracic and lumbar spine normal to inspection, Thoracic/lumbar spine scar(s), Lasegue's sign negative, straight leg raise negative bilaterally, pain with thoraco-lumbar ROM, paraspinal muscle tenderness, thoraco-lumbar ROM limited, thoracic spinal tenderness and lumbar spinal tenderness Extrem General: Yes capillary refill normal, Yes no clubbing, cyanosis or edema and Yes no calf tenderness Psych Appearance: grossly normal Mental Status: mental status grossly normal and other (Forgetful. Lives with FORENSIC INVESTIGATOR 24/7 care) Speech and movement: Normal speech and movement present Affect: normal affect Attitude: cooperative Thought process: Normal thought process present Thought content: Normal thought content present, suicidality (none), no hallucinations and Depressive thoughts present Insight: Fair insight present (Psych) Judgement: Fair judgement present (Psych) Quality Reporting (2019) Adult ([facility] 138/04/10/) Smoking risk assessment performed?: Yes Patient Tobacco Use Status: Never used Tobacco Results Reviewed Results Reviewed: XR SHOULDER, RIGHT 01/21/22 CLINICAL INFORMATION: Right shoulder pain. FINDINGS: There is no evidence of acute fracture or dislocation of the right shoulder. There is degenerative spurring about the glenohumeral joint. There is also noted to be some cartilage calcification about the humeral head with appearance of possible chondrocalcinosis. No widening of the coracoclavicular space is seen. IMPRESSION: Degenerative change of the glenohumeral joint. XR KNEE, LEFT 01/21/22 CLINICAL INFORMATION: Left knee pain. FINDINGS: There is no evidence of acute fracture or dislocation of the left knee. There is chondrocalcinosis present. There is mild narrowing of the medial joint space compartment. There is degenerative change of the patellofemoral joint with spurring of both the medial and lateral facets of the patella and some irregularity seen about the medial facet. There is spurring about the patellar site of insertion of the quadriceps tendon. No effusion is appreciated. Prominent vascular calcification is seen. IMPRESSION: Degenerative changes of the left knee predominantly at the patellofemoral joint. Chondrocalcinosis. XR CERVICAL SPINE 01/21/22 CLINICAL INFORMATION: Pain. FINDINGS: No abnormal prevertebral soft tissue swelling is seen. There is loss of the normal cervical spine lordosis. There is significant disc space narrowing present with marginal spurring and bridging C3-C7. There is facet arthropathy seen throughout the C2-C7. Lucency is seen about the posterior aspect of the L2 vertebral body and facet which is likely related to artifact rather than a true fracture. IMPRESSION: Significant cervical spondylosis as described. Assessment & Plan Assessment & Plan (1) Low back pain: Code(s): M54.50 - Low back pain, unspecified Category: Medical (2) Cervical spondylosis: Code(s): M47.812 - Spondylosis without myelopathy or radiculopathy, cervical region Category: Medical (3) Disc disease, degenerative, cervical: Code(s): M50.30 - Other cervical disc degeneration, unspecified cervical region Category: Medical (4) Chronic pain: Code(s): G89.29 - Other chronic pain Category: Medical Qualifiers: Chronic pain type: chronic pain syndrome Qualified Code(s): G89.4 - Chronic pain syndrome (5) Polyarthralgia: Code(s): M25.50 - Pain in unspecified joint Category: Medical Plan Patient has shown accountability for his medication regimen and the film count was accurate. There is no evidence of misuse, abuse or diversion at this time. [employer] reviewed. Script provided for oxycodone 5 mg TID prn with advanced date of 03/09/24 for moderate-severe pain. Side effects and precautions were discussed with patient and FORENSIC INVESTIGATOR. Encouraged adequate daily hydration, dietary fiber, and bowel regime as needed. Patient has Narcan at home. All questions were answered and he is agreeable to the plan. Follow up in 4 weeks pill count and sooner as needed. Medications: Refilled oxycodone Partial Fill upon patient request. 5 mg PO TID 30 days PRN 90 tabs 0RF pain (scale score 7-10) M47.812 - Spondylosis without myelopathy or radiculopathy, cervical region, M50.30 - Other cervical disc degeneration, unspecified cervical region Coding Level of Care Code Est Pt Level 4 (41923) Complex EM visit Add On G2211 Diagnoses Low back pain M54.50 Cervical spondylosis M47.812 Disc disease, degenerative, cervical M50.30 Chronic pain syndrome G89.4 Chronic pain type: chronic pain syndrome Polyarthralgia M25.50
[2024-03-01 09:24] VITALS: BP 143/87; PULSE 87; O2SAT 96
== END 2024-03-01 09:35 | disposition home or self-care (01) ==
PROVIDERS: PCP Family Medicine; Visit Provider Nurse Practitioner Family
DX: M54.50 Low back pain, unspecified (principal); M47.812 Spondylosis without myelopathy or radiculopathy, cervical region; M50.30 Other cervical disc degeneration, unspecified cervical region; G89.4 Chronic pain syndrome; M25.50 Pain in unspecified joint
CPT/HCPCS: 99214; G2211

== ENCOUNTER → 2024-03-01 09:09 | Outpatient (BNVA) | payer OTHER, SELFPAY | PROVIDERS: PCP Family Medicine; Visit Provider Nurse Practitioner Family | DX: Z51.81 Encounter for therapeutic drug level monitoring (principal); F11.20 Opioid dependence, uncomplicated; M54.50 Low back pain, unspecified; M47.812 Spondylosis without myelopathy or radiculopathy, cervical region; M50.30 Other cervical disc degeneration, unspecified cervical region; M25.50 Pain in unspecified joint; G89.4 Chronic pain syndrome | CPT/HCPCS: 99212 ==

== ENCOUNTER 2024-03-29 12:50 | Outpatient (AMB) | payer OTHER, SELFPAY ==
--- NOTE | 2024-03-29 12:57 | MHC.OFFVIS ---
Vital Signs 03/29/24 13:04 Height 5 ft 2 in BMI Reason not done Patient refused/unable BP 130/75 Blood Pressure Location Lt brachial Position Sitting Pulse 78 Pulse Source Pulse Oximeter Pulse Oximetry (%) 95 Oxygen Delivery Method Room Air Intake Visit Reasons: Pill Count Intake Note: Diosadado comes in today for a pill count to oxycodone, patient should have 33 tablets and presents with 32 tablets which he last took today 03/29/24 at 12pm. Parimutuel Ticket Seller Required: No Accompanied by: strategic partnership specialist Allergies No Known Allergies Allergy (Verified 03/29/24 13:05) HPI Comments Details: Patient presents today for a pill count. Patient is supposed to have #33 pills, in his possession has #32 pills. This demonstrates a responsible attitude in regards to the medication regimen. Patient reports mild to moderate analgesia on current medication regime. Patient reports increasing left knee pain due to OA with walking, climbing stairs and cold weather. He is interested to undergo diagnostic genicular nerve blocks for potential RFA procedure. Denies any fever, chills, weight loss, shortness of breaths, chest pain, nausea, sedation, dizziness, or urinary retention except occasional constipation. AGENT TICKETING GATE reports patient has been taking regular stool softener, dietary fiber, and intermittently laxatives (twice/per month). Patient states he has an increased ability to perform activities of daily living, interact socially and be more functional. Denies any recent cough, cold, infection, fever or any other significant changes in medical history since last office visit. PRIOR: Patient presents today for follow up after recent [facility] ER visit on 01/06/24 s/p mechanical fall at home. Patient is accompanied by his AGENT TICKETING GATE. Patient reports he was getting out of bed with a railing and his hand slipped on the railing due to lotion on his hands and felt sudden severe pain to his left thumb and moderate pain in his back and right side of the scalp. Patient reports difficulty sleeping at night, difficulty with ADLs and mobility due to pain. AGENT TICKETING GATE reports patient did bump his head on the bed matress and when he fell but no LOC, dizziness, unusual behavior or increased unsteadiness. Patient reports increased neck pain since recent fall. He reports short script of oxycodone helped him significantly and he was able to sleep better at night. AGENT TICKETING GATE denies spine x-rays or brain CT or MRI taken at recent ER stay. Patient had x-ray of his left thumb which showed dislocation of distal phalanx of the left thumb, no evidence of associated fracture. He received digital nerve block and reduction with splinting and has upcoming Orthopedic follow-up for this. Patient is scheduled for diagnostic right sided cervical medial branch blocks on 02/12/[address] Negrete. Denies any recent cough, cold, infection, fever or any other significant changes in medical history since last office visit. PRIOR: Patient is 83-year-old male with history of arthritis, osteoporosis, Parkinson's, anxiety and depression, chronic left knee, right shoulder and neck pain, presents today for initial evaluation of chronic neck pain. Patient denies any recent falls, trauma, or injury. He recently completed formal physical therapy for gait imbalance training with some improvement. Patient is accompanied by JOEL Holcomb. Denies any previous spine or joint injections or surgery. AGENT TICKETING GATE reports patient has increased limping, shuffling gait and dragging his feet due to Parkinson's. He follows with Dr. Isbell at [facility]. Patient experiences chronic pain in neck, arms, shoulders, and legs with daily activities, functioning, walking, movements and cold weather. Pain is constant and is rated at 9/10. Patient has been managing pain with Tylenol, NSAIDs, topical applications and gabapentin with partial relief. AGENT TICKETING GATE reports patient was under better pain control with low dose oxycodone over 5-6 years which allowed him to be less symptomatic and more functional. Patient also reports significant concerns in his neck and arms due to Parkinsons. Denies any fever or chills, rash, infection, constipation, sedations, nausea, vomiting, abdominal pain, chest pain, shortness of breaths, bladder or bowel dysfunction or saddle anesthesia. Location: Neck, shoulders, knee, bilateral legs Duration: Chronic pain worsening for past 5 years Characteristics of symptom or complaint: Aching, tingling, numbness, weakness, throbbing, sharp, heavy Aggravating or associated factors: Walking, movements, prolonged sitting or standing, laying, sleeping Relieving factors: Minimal relief with gabapentin, NSAIDs, Tylenol, heat therapy, topicals Treatment: Physical therapy [facility] Medical History Progressive supranuclear palsy Thrombocytopenia Depression with anxiety Lower extremity weakness Left wrist pain Generalized weakness Osteoporosis Arthritis Surgical History No pertinent past surgical history Social History Housing: Assisted Living Facility Alcohol intake: never Patient Tobacco Use Status: Never used Tobacco e-Cigarette/Vaping Use: Never Used Second Hand Smoke Exposure: No service: No Current occupational status: retired and disabled Current occupational exposures/hazards: No Cognitive needs: Yes (cane) Hearing needs: Yes Vision needs: No Review of Systems Const All systems reviewed & are unremarkable except as noted in HPI and below Physical Exam Vital Signs: Last Vital Signs Pulse 78 03/29/24 13:04 BP 130/75 03/29/24 13:04 Pulse Ox 95 03/29/24 13:04 Oxygen Delivery Method Room Air 03/29/24 13:04 General: Appears afebrile. Alert and oriented. Mood and affect appropriate. Hard of hearing bilaterally. Follows and participates in conversation appropriately. Respiratory effort is unlabored. No cough. Able to transition from sit to stand unassisted. Uses cane/walker. Neck Neck: Yes no lymphadenopathy, Yes supple, No anterior neck swelling, Yes no JVD, No prominent supraclavicular fat pad and No prominent dorsocervical fat pad Back/Spine/Pelvis Cervical Spine: loss of normal cervical lordosis, cervical muscular tenderness, pain with cervical ROM, No Cervical spine scars present, cervical spasm (right) and No Cervical spine tenderness Thoracic/Lumbar Spine: thoracic and lumbar spine normal to inspection, Thoracic/lumbar spine scar(s), Lasegue's sign negative, straight leg raise negative bilaterally, pain with thoraco-lumbar ROM, paraspinal muscle tenderness, thoraco-lumbar ROM limited, thoracic spinal tenderness and lumbar spinal tenderness Extrem General: Yes capillary refill normal, Yes no clubbing, cyanosis or edema and Yes no calf tenderness Left lower extremity: knee (Limited ROM due to pain.) Details: normal to inspection, tenderness Location: of the patella, of the medial joint line and of the lateral joint line and crepitus; no swelling, no ecchymosis and no unusual warmth Psych Appearance: grossly normal Mental Status: mental status grossly normal and other (Forgetful. Lives with AGENT TICKETING GATE 24/7 care) Speech and movement: Normal speech and movement present Affect: normal affect Attitude: cooperative Thought process: Normal thought process present Thought content: Normal thought content present, suicidality (none), no hallucinations and Depressive thoughts present Insight: Fair insight present (Psych) Judgement: Fair judgement present (Psych) Quality Reporting (2019) Adult ([facility] 138/04/10/68) Smoking risk assessment performed?: Yes Patient Tobacco Use Status: Never used Tobacco Results Reviewed Results Reviewed: XR SHOULDER, RIGHT 01/21/22 CLINICAL INFORMATION: Right shoulder pain. FINDINGS: There is no evidence of acute fracture or dislocation of the right shoulder. There is degenerative spurring about the glenohumeral joint. There is also noted to be some cartilage calcification about the humeral head with appearance of possible chondrocalcinosis. No widening of the coracoclavicular space is seen. IMPRESSION: Degenerative change of the glenohumeral joint. XR KNEE, LEFT 01/21/22 CLINICAL INFORMATION: Left knee pain. FINDINGS: There is no evidence of acute fracture or dislocation of the left knee. There is chondrocalcinosis present. There is mild narrowing of the medial joint space compartment. There is degenerative change of the patellofemoral joint with spurring of both the medial and lateral facets of the patella and some irregularity seen about the medial facet. There is spurring about the patellar site of insertion of the quadriceps tendon. No effusion is appreciated. Prominent vascular calcification is seen. IMPRESSION: Degenerative changes of the left knee predominantly at the patellofemoral joint. Chondrocalcinosis. XR CERVICAL SPINE 01/21/22 CLINICAL INFORMATION: Pain. FINDINGS: No abnormal prevertebral soft tissue swelling is seen. There is loss of the normal cervical spine lordosis. There is significant disc space narrowing present with marginal spurring and bridging C3-C7. There is facet arthropathy seen throughout the C2-C7. Lucency is seen about the posterior aspect of the L2 vertebral body and facet which is likely related to artifact rather than a true fracture. IMPRESSION: Significant cervical spondylosis as described. Assessment & Plan Assessment & Plan (1) Opioid contract exists: Code(s): Z79.891 - senior care (current) use of opiate analgesic Category: Medical (2) Left knee pain: Code(s): M25.562 - Pain in left knee Category: Medical (3) Osteoarthritis of left knee: Code(s): M17.12 - Unilateral primary osteoarthritis, left knee Category: Medical (4) Low back pain: Code(s): M54.50 - Low back pain, unspecified Category: Medical (5) Cervical spondylosis: Code(s): M47.812 - Spondylosis without myelopathy or radiculopathy, cervical region Category: Medical (6) Disc disease, degenerative, cervical: Code(s): M50.30 - Other cervical disc degeneration, unspecified cervical region Category: Medical (7) Chronic pain: Code(s): G89.29 - Other chronic pain Category: Medical Qualifiers: Chronic pain type: chronic pain syndrome Qualified Code(s): G89.4 - Chronic pain syndrome (8) Polyarthralgia: Code(s): M25.50 - Pain in unspecified joint Category: Medical Plan Patient has shown accountability for his medication regimen and the film count was slightly short but still within 1 day allowance. There is no evidence of misuse, abuse or diversion at this time. [employer] reviewed. Script provided for oxycodone 5 mg TID prn with advanced date of 04/09/24 for moderate-severe pain. Continue to monitor for side effects and precautions were discussed with patient and AGENT TICKETING GATE. Encouraged adequate daily hydration, dietary fiber, and bowel regime as needed. Patient has Narcan at home. Schedule Left diagnostic GNB with local and fluoroscopy for potential genicular RFA procedure. Expectations, risks and benefits were reviewed. Patient is aware he will be contacted to schedule this procedure. Script provided for lidocaine patches. All questions were answered and he is agreeable to the plan. Follow up in 4 weeks pill count and sooner as needed. Orders: Orders Oxycodone Screen Urine Today Z79.891 - interpreter and translator (current) use of opiate analgesic Medications: New lidocaine 5% 1 patch topical DAILY 30 days 30 ea 0RF pain M17.12 - Unilateral primary osteoarthritis, left knee, M25.562 - Pain in left knee Refilled oxycodone Partial Fill upon patient request. 5 mg PO TID 30 days PRN 90 tabs 0RF pain (scale score 7-10) M47.812 - Spondylosis without myelopathy or radiculopathy, cervical region, M50.30 - Other cervical disc degeneration, unspecified cervical region Coding Level of Care Code Est Pt Level 4 (76002) Complex EM visit Add On G2211 Diagnoses Opioid contract exists Z79.891 Left knee pain M25.562 Osteoarthritis of left knee M17.12 Low back pain M54.50 Cervical spondylosis M47.812 Disc disease, degenerative, cervical M50.30 Chronic pain syndrome G89.4 Chronic pain type: chronic pain syndrome Polyarthralgia M25.50
[2024-03-29 13:04] VITALS: BP 130/75; PULSE 78; O2SAT 95
== END 2024-03-29 13:26 | disposition home or self-care (01) ==
PROVIDERS: PCP Family Medicine; Visit Provider Nurse Practitioner Family
DX: G89.4 Chronic pain syndrome (principal); M25.562 Pain in left knee; M17.12 Unilateral primary osteoarthritis, left knee; Z79.891 Long term (current) use of opiate analgesic; M54.50 Low back pain, unspecified; M47.812 Spondylosis without myelopathy or radiculopathy, cervical region; M50.30 Other cervical disc degeneration, unspecified cervical region; M25.50 Pain in unspecified joint
CPT/HCPCS: 99214; G2211

== ENCOUNTER 2024-03-29 12:50 | Outpatient (REF) | payer OTHER, SELFPAY ==
[2024-03-29 14:25] LABS: Oxycodone Screen Urine Positive (Not Detect)
--- OUTSIDE RECORDS SUMMARY | 2024-03-29 14:46 | XMS_ITS | Clinical Summary ---
Author Organization [facility] Address [address] [place] [address] Care Team Providers Care Youth Minister Name Role Phone Dedra De La Torre MD Primary Care Prov ider Allergies No known active allergies Medications carbamide peroxide (Debrox) 6.5 % otic solution Place 5 Drops into the left ear 2 times daily. Tilt head so ear to be treated points towards the ceiling. Hold medication in ear using part of a cotton ball. 6 Active citalopram (CeleXA) 20 mg tablet Take 1 tab daily 6 Active polyethylene glycol (COLYTE) 240-22.72-6.72 -5.84 gram solution Drink 8 ounces every 15 minutes over 2 (two) sittings As directed. Finish entire jug. 6 Active pyridoxine (B-6) 250 mg tablet Take 1 tablet (250 mg total) by mouth 1 (one) time each day. 6 Active rOPINIRole (REQUIP) 0.25 mg tablet Take 1 tab PO 1 hour before bed. If no relief after 2 days may increase to 2 tabs PO 6 Active Active Problems Problem Noted Date Diagnosed Date Literacy level of illiterate 05/24/2015 Mild cognitive impairment with memory loss 05/23 Anxiety 05/17/2015 Chronic back pain 05/17/2015 Chronic neck pain 05/17/2015 Chronic sinusitis 05/17/2015 Insomnia 05/17/2015 Restless legs 05/17/2015 Immunizations Name Administration Dates Next Due Tdap Tetanus diptheria acell ular pertussis (Boostrix; Adacel) 7yo and older 05/24/2015 Social History Tobacco Use Types Packs/Day Years Used Date Smoking Tobacco: Never Assessed Sex and Gender Information Value Date Recorded Sex Assigned at Not on file Legal Sex Male 5:50 PM EST Gender Identity Not on file Sexual Orientation Not on file Plan of Treatment Health Maintenance Due Date Last Done Comments Pneumococcal Vaccine: 50+ Ye ars (1 of 1 - PCV) 1992 Zoster Vaccines (1 of 2) 1992 DTaP,Tdap,and Td Vaccines (2 - Td or Tdap) 06/21/2015 05/24/2015 RSV Immunization Patients 60 + Years Old (1 - 1-dose 75+ series) 2017 Cholesterol Screening (Lipid Panel) 01/30/2022 05/24/2015 Depression Screening 01/30/2022 Falls Risk Assessment 01/30/2022 Social Influencers of Health Screening 01/30/2022 COVID-19 Vaccine ( - 2023-2 5 season) 2023 Influenza Vaccine (#1) 2023 HIB Vaccines Aged Out No longer eligi ble based on patient's age to complete this topic HPV Vaccines Aged Out No longer eligi ble based on patient's age to complete this topic Hepatitis A Vaccines Aged Out No long er eligible based on patient's age to complete this topic Hepatitis B Vaccines Aged Out No long er eligible based on patient's age to complete this topic IPV Vaccines Aged Out No longer eligi ble based on patient's age to complete this topic MMR Vaccines Aged Out No longer eligi ble based on patient's age to complete this topic Meningococcal ACWY Vaccine Aged Out N o longer eligible based on patient's age to complete this topic Meningococcal B Vacine Aged Out No lo nger eligible based on patient's age to complete this topic RSV Immunization Patients Un maria t 20 months Aged Out No longer eligible b ased on patient's age to complete this topic Varicella Vaccines Aged Out No longer eligible based on patient's age to complete this topic Procedures Procedure Name Priority Date/Time Associated Diagnosis Comments LIPID PANEL Routine 05/24/2015 from Last 3 Months or Most Recently Relevant to Health Maintenance Results * Lipid panel (05/24/2015) LDL/HDL Ratio 3 0 - 4 Triglycerides 148 0 - 150 mg/dL Cholesterol 181 0 - 200 mg/dL HDL 67 >=40 mg/dL LDL Cholesterol 84 0 - 100 mg/dL Blood Venous blood specimen / Unknown us Historical Provider LAB BLOOD ORDERABLES Simi marin Result from Last 3 Months or Most Recently Relevant to Health Maintenance Care Teams Youth Minister Relationship Specialty Start Date End Date Dedra De La Torre MD PCP - General Internal Medicine 10/29/21
== END 2024-03-29 12:51 | disposition home or self-care (01) ==
LOC: HO.LAB 12:50
PROVIDERS: PCP Family Medicine; Visit Provider Nurse Practitioner Family
DX: Z79.891 Long term (current) use of opiate analgesic (principal); G89.4 Chronic pain syndrome; M25.562 Pain in left knee; M25.50 Pain in unspecified joint; M17.12 Unilateral primary osteoarthritis, left knee; M54.50 Low back pain, unspecified; M47.812 Spondylosis without myelopathy or radiculopathy, cervical region; M50.30 Other cervical disc degeneration, unspecified cervical region
CPT/HCPCS: 80307; 99212

== ENCOUNTER 2024-04-26 13:33 | Outpatient (AMB) | payer OTHER, SELFPAY ==
--- NOTE | 2024-04-26 13:33 | A.OFFVIS_ITS ---
Vital Signs 04/26/24 13:41 Height 5 ft 2 in BMI Reason not done Patient refused/unable BP 131/77 Blood Pressure Location Lt brachial Position Sitting Pulse 98 Pulse Source Pulse Oximeter Intake Visit Reasons: Pill Count Intake Note: Brad comes in today for pill count to oxycodone, patient should have 36 tablets and presents with 37 tablets which he last took today 04/26/24 at 12pm. Parts Sales Manager Required: No Accompanied by: STATE [employer]ATIONS DEPUTY DIRECTOR Allergies No Known Allergies Allergy (Verified 04/26/24 13:41) HPI Comments Details: Patient presents today for a pill count. Patient is supposed to have #36 pills, in his possession has #37 pills. The patient demonstrates a willingness to follow specified analgesic regimens and attends routine pill counts. Patient reports reasonable analgesia on current medication regime. Patient reports increasing left knee pain due to OA with walking, climbing stairs and cold weath er. There is a pending insurance approval for left diagnostic GNB for potential RFA procedure. Denies any fever, chills, weight loss, shortness of breaths, chest pain, nausea, sedation, dizziness, or urinary retention except occasional constipation. STATE FEDERAL RELATIONS DEPUTY DIRECTOR reports patient has been taking regular stool softener, dietary fiber, and intermittently laxatives (twice/per month). Patient states he has an increased ability to perform activities of daily living, interact socially and be more functional. Denies any recent cough, cold, infection, fever or any other significant changes in medical history since last office visit. He reports today he was seen by ENT provider and significant amount of ear wax was removed. PRIOR: Patient presents today for follow up after recent [facility] ER visit on 01/06/24 s/p mechanical fall at home. Patient is accompanied by his STATE [employer] RELATIONS DEPUTY DIRECTOR. Patient reports he was getting out of bed with a railing and his hand slipped on the railing due to lotion on his hands and felt sudden severe pain to his left thumb and moderate pain in his back and right side of the scalp. Patient reports difficulty sleeping at night, difficulty with ADLs and mobility due to pain. STATE [employer] RELATIONS DEPUTY DIRECTOR reports patient did bump his head on the bed matress and when he fell but no LOC, dizziness, unusual behavior or increased unsteadiness. Patient reports increased neck pain since recent fall. He reports short script of oxycodone helped him significantly and he was able to sleep better at night. STATE [employer]ATIONS DEPUTY DIRECTOR denies spine x-rays or brain CT or MRI taken at recent ER stay. Patient had x-ray of his left thumb which showed dislocation of distal phalanx of the left thumb, no evidence of associated fracture. He received digital nerve block and reduction with splinting and has upcoming Orthopedic follow-up for this. Patient is scheduled for diagnostic right sided cervical medial branch blocks on 02/12/[address] Negrete. Denies any recent cough, cold, infection, fever or any other significant changes in medical history since last office visit. PRIOR: Patient is 83-year-old male with history of arthritis, osteoporosis, Parkinson's, anxiety and depression, chronic left knee, right shoulder and neck pain, presents today for initial evaluation of chronic neck pain. Patient denies any recent falls, trauma, or injury. He recently completed formal physical therapy for gait imbalance training with some improvement. Patient is accompanied by JOEL Holcomb. Denies any previous spine or joint injections or surgery. STATE [employer] RELATIONS DEPUTY DIRECTOR reports patient has increased limping, shuffling gait and dragging his feet due to Parkinson's. He follows with Dr. Isbell at [facility]. Patient experiences chronic pain in neck, arms, shoulders, and legs with daily activities, functioning, walking, movements and cold weather. Pain is constant and is rated at 9/10. Patient has been managing pain with Tylenol, NSAIDs, topical applications and gabapentin with partial relief. STATE [employer]ATIONS DEPUTY DIRECTOR reports patient was under better pain control with low dose oxycodone over 5-6 years which allowed him to be less symptomatic and more functional. Patient also reports significant concerns in his neck and arms due to Parkinsons. Denies any fever or chills, rash, infection, constipation, sedations, nausea, vomiting, abdominal pain, chest pain, shortness of breaths, bladder or bowel dysfunction or saddle anesthesia. Location: Neck, shoulders, knee, bilateral legs Duration: Chronic pain worsening for past 5 years Characteristics of symptom or complaint: Aching, tingling, numbness, weakness, throbbing, sharp, heavy Aggravating or associated factors: Walking, movements, prolonged sitting or standing, laying, sleeping Relieving factors: Minimal relief with gabapentin, NSAIDs, Tylenol, heat therapy, topicals Treatment: Physical therapy [facility] Medical History Progressive supranuclear palsy Thrombocytopenia Depression with anxiety Lower extremity weakness Left wrist pain Generalized weakness Osteoporosis Arthritis Surgical History No pertinent past surgical history Social History Housing: Assisted Living Facility Alcohol intake: never Patient Tobacco Use Status: Never used Tobacco e-Cigarette/Vaping Use: Never Used Second Hand Smoke Exposure: No service: No Current occupational status: retired and disabled Current occupational exposures/hazards: No Cognitive needs: Yes (cane) Hearing needs: Yes Vision needs: No Review of Systems Const All systems reviewed & are unremarkable except as noted in HPI and below Physical Exam General: Appears afebrile. Alert and oriented. Mood and affect appropriate. Hard of hearing bilaterally. Follows and participates in conversation appropriately. Respiratory effort is unlabored. No cough. Able to transition from sit to stand unassisted. Uses cane/walker. Neck Neck: Yes no lymphadenopathy, Yes supple, No anterior neck swelling, Yes no JVD, No prominent supraclavicular fat pad and No prominent dorsocervical fat pad Back/Spine/Pelvis Cervical Spine: loss of normal cervical lordosis, cervical muscular tenderness, pain with cervical ROM, No Cervical spine scars present, cervical spasm (right) and No Cervical spine tenderness Thoracic/Lumbar Spine: thoracic and lumbar spine normal to inspection, Thoracic/lumbar spine scar(s), Lasegue's sign negative, straight leg raise negative bilaterally, pain with thoraco-lumbar ROM, paraspinal muscle tenderness, thoraco-lumbar ROM limited, thoracic spinal tenderness and lumbar spinal tenderness Extrem General: Yes capillary refill normal, Yes no clubbing, cyanosis or edema and Yes no calf tenderness Left lower extremity: knee (Limited ROM due to pain.) Details: tenderness Location: of the patella, of the medial joint line and of the lateral joint line and crepitus; no swelling, no ecchymosis and no unusual warmth Psych Appearance: grossly normal and well kempt Mental Status: mental status grossly normal and other (Forgetful. Lives with STATE FEDERAL RELATIONS DEPUTY DIRECTOR 24/7 care) Speech and movement: Normal speech and movement present Affect: normal affect Attitude: cooperative Thought process: Normal thought process present Thought content: Normal thought content present, suicidality (none), no hallucinations and Depressive thoughts present Insight: Fair insight present (Psych) Judgement: Fair judgement present (Psych) Quality Reporting (2020) Adult ([facility] 138/04/10/68) Smoking risk assessment performed?: Yes Patient Tobacco Use Status: Never used Tobacco Results Reviewed Results Reviewed: XR SHOULDER, RIGHT 01/21/22 CLINICAL INFORMATION: Right shoulder pain. FINDINGS: There is no evidence of acute fracture or dislocation of the right shoulder. There is degenerative spurring about the glenohumeral joint. There is also noted to be some cartilage calcification about the humeral head with appearance of possible chondrocalcinosis. No widening of the coracoclavicular space is seen. IMPRESSION: Degenerative change of the glenohumeral joint. XR KNEE, LEFT 01/21/22 CLINICAL INFORMATION: Left knee pain. FINDINGS: There is no evidence of acute fracture or dislocation of the left knee. There is chondrocalcinosis present. There is mild narrowing of the medial joint space compartment. There is degenerative change of the patellofemoral joint with spurring of both the medial and lateral facets of the patella and some irregularity seen about the medial facet. There is spurring about the patellar site of insertion of the quadriceps tendon. No effusion is appreciated. Prominent vascular calcification is seen. IMPRESSION: Degenerative changes of the left knee predominantly at the patellofemoral joint. Chondrocalcinosis. XR CERVICAL SPINE 01/21/22 CLINICAL INFORMATION: Pain. FINDINGS: No abnormal prevertebral soft tissue swelling is seen. There is loss of the normal cervical spine lordosis. There is significant disc space narrowing present with marginal spurring and bridging C3-C7. There is facet arthropathy seen throughout the C2-C7. Lucency is seen about the posterior aspect of the L2 vertebral body and facet which is likely related to artifact rather than a true fracture. IMPRESSION: Significant cervical spondylosis as described. Assessment & Plan Assessment & Plan (1) Cervical spondylosis: Code(s): M47.812 - Spondylosis without myelopathy or radiculopathy, cervical region Category: Medical (2) Opioid contract exists: Code(s): Z79.891 - alf (current) use of opiate analgesic Category: Medical (3) Left knee pain: Code(s): M25.562 - Pain in left knee Category: Medical (4) Osteoarthritis of left knee: Code(s): M17.12 - Unilateral primary osteoarthritis, left knee Category: Medical (5) Low back pain: Code(s): M54.50 - Low back pain, unspecified Category: Medical (6) Disc disease, degenerative, cervical: Code(s): M50.30 - Other cervical disc degeneration, unspecified cervical region Category: Medical (7) Chronic pain: Code(s): G89.29 - Other chronic pain Category: Medical Qualifiers: Chronic pain type: chronic pain syndrome Qualified Code(s): G89.4 - Chronic pain syndrome (8) Polyarthralgia: Code(s): M25.50 - Pain in unspecified joint Category: Medical Plan Patient has shown accountability for his medication regimen and the film count was slightly short but still within 1 day allowance. There is no evidence of mi suse, abuse or diversion at this time. [employer] reviewed. Script provided for oxycodone 5 mg TID prn with advanced date of 05/06/24 for moderate-severe pain. Continue to monitor for side effects and precautions were discussed with patient and STATE [employer]ATIONS DEPUTY DIRECTOR. Encouraged adequate daily hydration, dietary fiber, and bowel regime as needed. Patient has Narcan at home. Will add magnesium citrate/oxide to assist with occasional constipation and for muscle spasms. Pending PA approval for Left diagnostic GNB with local and fluoroscopy for potential genicular RFA procedure. Expectations, risks and benefits were reviewed. Patient is aware he will be contacted to schedule this procedure. Continue lidocaine patches. All questions were answered and he is agreeable to the plan. Follow up in 4-5 weeks pill count and sooner as needed. Medications: New magnesium citrate,mag oxide 250 mg PO DAILY 30 days 30 caps 0RF muscle spasms M47.812 - Spondylosis without myelopathy or radiculopathy, cervical region Refilled oxycodone Partial Fill upon patient request. 5 mg PO TID 30 days PRN 90 tabs 0RF pain (scale score 7-10) M47.812 - Spondylosis without myelopathy or radiculopathy, cervical region, M50.30 - Other cervical disc degeneration, unspecified cervical region Coding Level of Care Code Est Pt Level 4 (77431) Complex EM visit Add On G2211 Diagnoses Cervical spondylosis M47.812 Opioid contract exists Z79.891 Left knee pain M25.562 Osteoarthritis of left knee M17.12 Low back pain M54.50 Disc disease, degenerative, cervical M50.30 Chronic pain syndrome G89.4 Chronic pain type: chronic pain syndrome Polyarthralgia M25.50
[2024-04-26 13:41] VITALS: BP 131/77; PULSE 98
--- OUTSIDE RECORDS SUMMARY | 2024-04-26 15:20 | XMS_ITS | Clinical Summary ---
Author Organization [facility] Address [address] [place] [address] Care Team Providers Care Telephone Installer Name Role Phone Dedra De La Torre [...] 1992 Zoster Vaccines (1 of 2) 1992 RSV Immunization Patients 60 + Years Old (1 - 1-dose 75+ series) 2017 Cholesterol Screening (Lipid Panel) 01/30/2022 05/24/2015 Depression Screening 01/30/2022 Falls Risk Assessment 01/30/2022 Social Influencers of Health Screening 01/30/2022 COVID-19 Vaccine (1 - 2023-2 5 season) 2023 Influenza Vaccine (#1) 2023 DTaP,Tdap,and Td Vaccines (2 - Td or Tdap) 05/23/2025 05/24/2015 HIB Vaccines Aged Out No longer eligi [...] Recently Relevant to Health Maintenance Care Teams Telephone Installer Relationship Specialty Start Date End Date Dedra De La Torre MD PCP - General Internal Medicine 10/29/21
== END 2024-04-26 13:59 | disposition home or self-care (01) ==
PROVIDERS: PCP Family Medicine; Visit Provider Nurse Practitioner Family
DX: M47.812 Spondylosis without myelopathy or radiculopathy, cervical region (principal); Z79.891 Long term (current) use of opiate analgesic; M25.562 Pain in left knee; M17.12 Unilateral primary osteoarthritis, left knee; M54.50 Low back pain, unspecified; M50.30 Other cervical disc degeneration, unspecified cervical region; G89.4 Chronic pain syndrome; M25.50 Pain in unspecified joint
CPT/HCPCS: 99214; G2211

== ENCOUNTER → 2024-04-26 13:33 | Outpatient (BNVA) | payer OTHER, SELFPAY | PROVIDERS: PCP Family Medicine; Visit Provider Nurse Practitioner Family | DX: Z51.81 Encounter for therapeutic drug level monitoring (principal); M47.812 Spondylosis without myelopathy or radiculopathy, cervical region; M25.562 Pain in left knee; M17.12 Unilateral primary osteoarthritis, left knee; M54.50 Low back pain, unspecified; M50.30 Other cervical disc degeneration, unspecified cervical region; M25.50 Pain in unspecified joint; G89.4 Chronic pain syndrome; Z79.891 Long term (current) use of opiate analgesic | CPT/HCPCS: 99212 ==

== ENCOUNTER 2024-06-21 11:12 | Outpatient (AMB) | payer OTHER, SELFPAY ==
--- NOTE | 2024-06-21 11:16 | A.OFFPC_ITS ---
Vital Signs 06/21/24 11:20 Height 5 ft 2 in Weight 135 lb BMI 24.7 BP 120/60 Blood Pressure Location Lt brachial Position Sitting Respiration 14 Pulse 87 Pulse Source Pulse Oximeter Temp 97.6 F Temp Source Oral Pulse Oximetry (%) 97 Oxygen Delivery Method Room Air Intake Visit Reasons: 6 mo [address] Maria Del Carmen Villalobos complex fu Intake Note: patient is scheduled to follow up with pcp from prior physical exam Technology Methodology Consultant Required: No Allergies No Known Allergies Allergy (Verified 06/21/24 11:16) Medication List - Last Reconciled 06/21/24 by Hernan Mae MD acetaminophen ER 650 mg PO Q12H PRN 10 days amantadine HCl 100 mg PO BID amlodipine 2.5 mg PO DAILY 30 days blood pressure monitor Automatic, Digital. Dx: I10. Daily As directed, 999 days/lifetime carbidopa-levodopa 25-100 mg 1 tab PO BID 30 days carboxymethylcellulose sodium 0.5% (Refresh Tears) 1 drp ophthalmic (eye) BID cetirizine 10 mg PO DAILY chair, wheel (Wheel chair) As directed cyanocobalamin (vitamin B-12) 1,000 mcg PO DAILY 30 days cyanocobalamin (vitamin B-12) 1,000 mcg IM Q4W 3 months diclofenac sodium 1% (Voltaren Arthritis Pain) 4 grams topical QID PRN 30 days diphenhydramine HCl (NightTime Sleep Aid (diphenhydramine)) 25 mg PO BEDTIME PRN 10 days docusate sodium 100 mg PO BID PRN 30 days escitalopram oxalate 5 mg PO DAILY fluticasone propionate 50 mcg/actuation (Flonase Allergy Relief) 1 spray intranasal Q12H 30 days lactulose PO lidocaine 5% 1 patch topical DAILY 30 days lisinopril 5 mg PO DAILY 30 days magnesium citrate,mag oxide 250 mg PO DAILY 30 days magnesium oxide 250 mg PO DAILY mirtazapine 15 mg PO BEDTIME miscellaneous medical supply Motorized?scooter. ?Daily?As directed. 999 days naproxen 500 mg PO BID PRN oxybutynin chloride ER 2.5 mg (1/2 x 5 mg) PO DAILY 30 days oxycodone 5 mg PO TID PRN 30 days polyethylene glycol 3350 17 grams PO quetiapine 25mg (1 tab) AM and 50mg (2 tabs) PM 30 days Shower Chair Shower chair/bench. As directed, 999 days. walker (Ultra-Light Rollator misc) As directed, 999 days zolpidem (Ambien) 5 mg PO BEDTIME PRN 30 days Tobacco use date assessed: 09/16/23 Dental Screening Dental Screen Date: 09/16/23 HPI 6 mo [address] Maria Del Carmen mckenna fu HPI Details 84 y/o male presents to f/u [facility] itions. Pt notes he has been eating soft foods, 2-3 meals a day. Weight has improved since May - 115lbs to 135 lbs. Ongoing chronic pain. He was unable to tolerate cervical?facet blocks due to involuntary dyskinetic symptoms that precluded appropriate/safe needle placement. The procedure was therefore aborted. Pain?management?recommends?he?return?to?his?neurologist?for?consi deration?of?cervical?Botox?injections PHQ-9 13, FABIENNE-7 5 today. He is on a low dose of escitalopram. [facility] Medical History Progressive supranuclear palsy Thrombocytopenia Depression with anxiety Lower extremity weakness Left wrist pain Generalized weakness Osteoporosis Arthritis Surgical History No pertinent past surgical history Social History Housing: Assisted Living Facility Alcohol intake: never Patient Tobacco Use Status: Never used Tobacco e-Cigarette/Vaping Use: Never Used Second Hand Smoke Exposure: No service: No Current occupational status: retired and disabled Current occupational exposures/hazards: No Cognitive needs: Yes (cane) Hearing needs: Yes Vision needs: No Questionnaire PHQ-9 Over the last 2 weeks, how often have you been bothered by any of the following problems? 1. Little interest or pleasure in doing things: several days 2. Feeling down, depressed, or hopeless: several days 3. Trouble falling or staying asleep, or sleeping too much: nearly every day 4. Feeling tired or having little energy: more than half the days 5. Poor appetite or overeating: not at all 6. Feeling bad about yourself - or that you are a failure or have let yourself or your family down: more than half the days 7. Trouble concentrating on things, such as reading the newspaper or watching television: more than half the days 8. Moving or speaking so slowly that other people could have noticed. Or the opposite - being so fidgety or restless that you have been moving around a lot more than usual: more than half the days 9. Thoughts that you would be better off or of hurting yourself in some way: not at all Total score: 13 Source: Developed by Drs. Rad Dimas, Maria Elena Chaidez, Raoul Higuera and colleagues, with an educational eleanor from [employer]. Thrive Questionnaire Date Thrive assessed: 06/15/24 I am a: Parent/Caregiver What is your living situation today?: I have a steady place to live Within the past 12 months, did the food you bought not last and you didn't have the money to get more?: Never true Within the past 12 months, did you worry whether your food would run out before you got money to buy more?: Never true Do you have trouble paying for medicines?: No Do you have trouble getting transportation to medical appointments?: No Do you have trouble paying your heating and electricity bill?: No Do you have trouble taking care of your child, family member or friend?: No Do you have trouble with day-to-day activities such as bathing, preparing meals, shopping, managing finances, etc.?: Yes Are you currently unemployed and looking for a job?: I choose not to answer this question Are you interested in more education?: No Please select the resources that you would like help with: None Currently or been in a relationship where the following occur: No concerns reported THRIVE Score: 0 AUDIT C Alcohol Use Questionnaire (AUDIT-C) 1. How often do you have a drink containing alcohol?: Never 3. How often do you have six or more drinks on one occasion?: Never Total Score: 0 FABIENNE-7 AMB Questionnaire FABIENNE-7 Date FABIENNE - 7 assessed: 09/16/23 Feeling nervous, anxious, or on edge: 1 = Several days Not being able to stop or control worryin = Several days Worrying too much about different things: 1 = Several days Trouble relaxin = Several days Being so restless that it is hard to sit still: 0 = Not at all Becoming easily annoyed or irritable: 1 = Several days Feeling afraid as if something awful might happen: 0 = Not at all Total FABIENNE-7 score (0-4 normal; 5-9 mild; 10-14 moderate; 15-21 severe): 5 Source: Developed by Drs. Rad Dimas, Maria Elena Chaidez, Raoul Higuera and colleagues, with an educational eleanor from [employer]. Review of Systems Const Denies chills, Denies fatigue, Denies fever(s), Denies headache(s) and Denies weakness ENT Denies dizziness and Denies headache(s) Card Denies dyspnea Resp Denies cough, Denies dyspnea, Denies wheezing and Denies other (shortness of breath) Musc Denies numbness and Denies tingling Neuro Denies dizziness, Denies headache(s), Denies numbness, Denies tingling and Denies weakness Psych Denies anxiety and Denies depression Endo Denies fatigue Aller/Immun Denies wheezing Physical exam (Primary Care) Vital Signs: Last Vital Signs Temp 97.6 F 06/21/24 11:20 Pulse 87 06/21/24 11:20 Resp 14 06/21/24 11:20 BP 120/60 06/21/24 11:20 Pulse Ox 97 06/21/24 11:20 Oxygen Delivery Method Room Air 06/21/24 11:20 BMI result Body Mass Index 24.7 Tobacco/Smoking Status: Tobacco use Status Tobacco use date assessed 09/16/23 06/21/24 11:21 Patient Tobacco Use Status Never used Tobacco 06/21/24 11:21 e-Cigarette/Vaping Use Never Used 06/21/24 11:21 PHQ-9: PHQ-9 Score PHQ-9: Total score 13 06/21/24 11:28 Thrive Assessment: Date of Thrive Assessment Date Thrive assessed 06/15/24 06/21/24 11:21 Currently or been in a relationship where the following occur: No concerns reported Const General: well developed; No acute distress Nutritional Appearance: well nourished Orientation/consciousness: patient oriented x3 HENMT Head: Yes normocephalic and Yes atraumatic Eyes General: appearance normal, both eyes and all related structures Pupils: Equal, round and reactive pupils present EOM: EOMs intact bilaterally Resp Effort & Inspection: normal respiratory effort Auscultation: clear to auscultation bilaterally Cardio Rate: regular rate Rhythm: regular rhythm Heart sounds: S1 normal heart sound present, S2 normal heart sound present, no gallops, no murmurs and no rubs Neuro General: patient oriented x3 and No gait normal Cranial nerves: Yes Equal, round and reactive pupils present Psych Affect: normal affect Coding Level of Care Code Est Pt Level 4 (97519) Diagnoses Chronic pain syndrome G89.4 Chronic pain type: chronic pain syndrome Cervical spondylosis M47.812 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 Dyskinesia presence: with dyskinesia Fluctuating manifestations: with fluctuating manifestations Difficulty walking R26.2 Depression with anxiety F41.8 Difficulty sleeping G47.9 Assessment & Plan Assessment & Plan (1) Chronic pain: Code(s): G89.29 - Other chronic pain Category: Medical Qualifiers: Chronic pain type: chronic pain syndrome Qualified Code(s): G89.4 - Chronic pain syndrome Plan: He was unable to tolerate cervical?facet blocks due to involuntary dyskinetic symptoms that precluded appropriate/safe needle placement. The procedure was therefore aborted. Pain?management?recommends?he?return?to?his?neurologist?for?consideration?of?cer vical?Botox?injections however,?neurology?does?not?feel?this?is?feasible Uses?heating?pads?and?has?oxycodone?tablets?for?pain Also?getting?injection?therapy?in?bilateral?knees?which?is?helping. (2) Cervical spondylosis: Code(s): M47.812 - Spondylosis without myelopathy or radiculopathy, cervical region Category: Medical Plan: As?above (3) Parkinson disease: Code(s): G20.A1 - Parkinson's disease without dyskinesia, without mention of fluctuations Category: Medical Qualifiers: Dyskinesia presence: with dyskinesia Fluctuating manifestations: with fluctuating manifestations Qualified Code(s): G20.B2 - Parkinson's disease with dyskinesia, with fluctuations Plan: On?carbidopa?levodopa Followed?by?neurology Issues?with?chronic?pain ( see above) ?and?depression (See below).??Also?issues?with?unsteady?gait (see below). (4) Difficulty walking: Code(s): R26.2 - Difficulty in walking, not elsewhere classified Category: Medical Plan: Has?had?physical?therapy Using?a?Rollator?walker?and?has LABORATORY TESTER?to?assist As?cane?for?short?distances. (5) Depression with anxiety: Code(s): F41.8 - Other specified anxiety disorders Category: Medical Plan: Worsening?depression. He?is?on?escitalopram?5?mg?daily?which?seems?to?be?helping?but?will?bring?dose?u p?to?10?mg?daily. (6) Difficulty sleeping: Code(s): G47.9 - Sleep disorder, unspecified Category: Medical Plan: Patient?has?been?doing?well?with?zolpidem. Having?some?difficulty?with?pharmacy/insurance [facility]will?try?to?get?this?filled?for?him. Medications: Changed From escitalopram oxalate 5 mg PO DAILY To escitalopram oxalate 10 mg PO DAILY 90 days 90 tabs 3RF Refilled zolpidem (Ambien) 5 mg PO BEDTIME 30 days PRN 30 tabs 4RF sleep escitalopram oxalate 10 mg PO DAILY 90 days 90 tabs 3RF zolpidem (Ambien) 5 mg PO BEDTIME 30 days PRN 30 tabs 4RF sleep
[2024-06-21 11:20] VITALS: BP 120/60; PULSE 87; RESP 14; TEMP 36.4; O2SAT 97; BMI 24.7
--- OUTSIDE RECORDS SUMMARY | 2024-06-21 12:58 | XMS_ITS | Clinical Summary ---
Author Organization [facility] Address [address] [place] [address] Care Team Providers Care Tester Regulator Name Role Phone Dedra De La Torre [...] Vaccines (1 of 2) 1992 RSV Immunization Adult Patie nts (1 - 1-dose 75+ series) 2017 Cholesterol Screening (Lipid Panel) 01/30/2022 05/24/2015 Depression Screening 01/30/2022 Falls Risk Assessment 01/30/2022 Social Influencers of Health Screening 01/30/2022 COVID-19 Vaccine (1 - 2023-2 5 season) 2023 Influenza Vaccine (Season Ended) 2024 DTaP,Tdap,and Td Vaccines (2 - Td or [...] age to complete this topic Meningococcal B Vaccine Aged Out No l onger eligible based on patient's age to complete [...] Recently Relevant to Health Maintenance Care Teams Tester Regulator Relationship Specialty Start Date End Date Dedra De La Torre MD PCP - General Internal Medicine 10/29/21
== END 2024-06-21 11:48 | disposition home or self-care (01) ==
LOC: HO.HMCFM 11:13
PROVIDERS: PCP Family Medicine; Visit Provider Family Medicine
DX: G89.4 Chronic pain syndrome (principal); M47.812 Spondylosis without myelopathy or radiculopathy, cervical region; G20.B2 Parkinson's disease with dyskinesia, with fluctuations; R26.2 Difficulty in walking, not elsewhere classified; F41.8 Other specified anxiety disorders; G47.9 Sleep disorder, unspecified

== ENCOUNTER → 2024-06-21 11:12 | Outpatient (BNVA) | payer OTHER, SELFPAY | PROVIDERS: PCP Family Medicine; Visit Provider Family Medicine | DX: G89.4 Chronic pain syndrome (principal); M47.812 Spondylosis without myelopathy or radiculopathy, cervical region; G20.B2 Parkinson's disease with dyskinesia, with fluctuations; R26.2 Difficulty in walking, not elsewhere classified; F41.8 Other specified anxiety disorders; G47.9 Sleep disorder, unspecified | CPT/HCPCS: 96127; 99212 ==

== ENCOUNTER 2024-06-23 09:28 | Outpatient (REF) | payer OTHER, SELFPAY ==
[2024-06-23 11:11] LABS: Appearance Urine Clear; Color Urine Yellow; Glucose Urine UA Negative (Negative); Leukocyte Esterase Urine Negative (Negative); Nitrite Urine Negative (Negative); PH 6.5 (5.0-9.0); Urine Blood Negative (Negative); Urine Ketones Negative (Negative); Urine Protein Negative (Neg-Trace)
[2024-06-23 11:15] LABS: MANUAL DIFF FLAG NO
[2024-06-23 11:31] LABS: Basophils Percent Auto 0.6 % (0-2); Eosinophils Absolute Auto 0.1 X10*3/uL (0.0-0.4); Eosinophils Percent Auto 1.9 % (0-4); Hematocrit 37.8 % (42.0-52.0); Hemoglobin 12.4 g/dl (14.0-18.0); Imm Gran Abs Auto 0.02 X10*3/uL (0.00-0.03); Imm Gran Pct Auto 0.4 % (0.0-0.4); Lymphocytes Absolute Auto 1.1 X10*3/uL (1.2-4.9); Mean Corpuscular HGB Conc 32.8 g/dl (31.0-36.0); Mean Corpuscular Hemoglobin 29.1 pg (27.0-33.0); Mean Corpuscular Volume 88.7 fL (80.0-98.0); Mean Platelet Volume 8.9 fL (9.4-12.4); Monocytes Absolute Auto 0.5 X10*3/uL (0.1-1.2); Monocytes Percent Auto 8.9 % (2-11); Neutrophils Absolute Auto 3.5 x10*3/uL (2.0-8.3); Neutrophils Percent Auto 67.2 % (45-73); Platelet Count 137 X10*3/uL (160-400); Red Blood Count 4.26 X10*6/uL (4.60-5.80); Red Cell Distribution Width 13.3 % (11.0-16.0); White Blood Count 5.2 X10*3/uL (4.8-10.8)
[2024-06-23 11:56] LABS: Alanine Aminotransferase 7 U/L (0-40); Albumin Level 3.6 g/dL (3.5-5.0); Alkaline Phosphatase 86 U/L (39-117); Anion Gap 7 (12-20); Aspartate Amino Transferase 19 U/L (5-37); Bilirubin Total 0.5 mg/dL (0.0-1.0); Blood Urea Nitrogen 21 mg/dL (9-16); Calcium 8.5 mg/dL (8.4-10.2); Carbon Dioxide 29 mmol/L (22-29); Chloride 105 mmol/L (96-108); Cholesterol 195 mg/dL (<200); Estimated Glomerular Filt Rate > 60; Glucose Fasting 95 mg/dL (60-99); HDL Cholesterol 54 mg/dL (>40); LDL Cholesterol Calculated 126 mg/dL (<100); Potassium 4.1 mmol/L (3.3-5.1); Sodium 137 mmol/L (135-145); Total Protein 6.5 g/dL (6.5-8.0); Triglycerides 75 mg/dL (<150)
[2024-06-23 12:16] LABS: TSH reflex Free T4 0.86 uIU/mL (0.32-4.0)
[2024-06-23 12:17] LABS: Folate 11.3 ng/mL (> or = 4.0); Vitamin B12 292 pg/mL (200-900)
== END 2024-06-23 09:29 | disposition home or self-care (01) ==
LOC: HO.WFDLDS 09:28
PROVIDERS: Referring Provider Nurse Practitioner Family; Visit Provider Family Medicine
DX: Z00.00 Encounter for general adult medical examination without abnormal findings (principal)
CPT/HCPCS: 36415; 80053; 80061; 81003; 82607; 82746; 84443; 85025

== ENCOUNTER 2024-06-25 10:58 | Outpatient (AMB) | payer OTHER, SELFPAY ==
--- NOTE | 2024-06-25 11:07 | MHC.OFFVIS ---
Vital Signs 06/25/24 11:13 06/25/24 11:14 Height 5 ft 2 in Weight 139 lb BMI 25.4 BP 95/54 L Blood Pressure Location Lt brachial Position Sitting Pulse 158 H 91 Pulse Source Pulse Oximeter Pulse Oximeter Pulse Oximetry (%) 98 98 Oxygen Delivery Method Room Air Room Air Comment pulse recheck Intake Visit Reasons: PIll count Intake Note: Brad comes in today for a pill count to oxycodone, patient should have 30 tablets and presents with 28 tablets which he last took today 06/25/24 at 8:30 am. 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 Patient is supposed to have #30 pills, in his possession has #28 pills. Patient reports mild to moderate analgesia on current medication regime. Patient's DUB ROOM ENGINEER reports patient frequently wakes up at night due to left knee pain and asks for medication. She had to give patient one extra pill last night due to intractable left knee pain due to OA. We are awaiting insurance approval for left diagnostic GNB for potential RFA procedure. His mobility is limited and decreased appetite per DUB ROOM ENGINEER due to pain. DUB ROOM ENGINEER reports they are considering to supplement with Ensure. Patient reports increasing left knee pain due to OA with walking, climbing stairs and cold and rainy weather changes. Denies any fever, chills, weight loss, shortness of breaths, chest pain, nausea, sedation, dizziness, or urinary retention except occasional constipation. DUB ROOM ENGINEER reports patient has been taking regular stool softener, dietary fiber, and intermittently laxatives. Patient states he has an increased ability to perform activities of daily living, interact socially and be more functional. PRIOR: Patient is 83-year-old male with history of arthritis, osteoporosis, Parkinson's, anxiety and depression, chronic left knee, right shoulder and neck pain, presents today for initial evaluation of chronic neck pain. Patient denies any recent falls, trauma, or injury. He recently completed formal physical therapy for gait imbalance training with some improvement. Patient is accompanied by DUB ROOM ENGINEER Aicha. Denies any previous spine or joint injections or surgery. DUB ROOM ENGINEER reports patient has increased limping, shuffling gait and dragging his feet due to Parkinson's. He follows with Dr. Isbell at [facility]. Patient experiences chronic pain in neck, arms, shoulders, and legs with daily activities, functioning, walking, movements and cold weather. Pain is constant and is rated at 9/10. Patient has been managing pain with Tylenol, NSAIDs, topical applications and gabapentin with partial relief. DUB ROOM ENGINEER reports patient was under better pain control with low dose oxycodone over 5-6 years which allowed him to be less symptomatic and more functional. Patient also reports significant concerns in his neck and arms due to Parkinsons. Denies any fever or chills, rash, infection, constipation, sedations, nausea, vomiting, abdominal pain, chest pain, shortness of breaths, bladder or bowel dysfunction or saddle anesthesia. Location: Neck, shoulders, knee, bilateral legs Duration: Chronic pain worsening for past 5 years Characteristics of symptom or complaint: Aching, tingling, numbness, weakness, throbbing, sharp, heavy Aggravating or associated factors: Walking, movements, prolonged sitting or standing, laying, sleeping Relieving factors: Minimal relief with gabapentin, NSAIDs, Tylenol, heat therapy, topicals Treatment: Physical therapy [facility] Medical History Depression with anxiety Progressive supranuclear palsy Thrombocytopenia Lower extremity weakness Left wrist pain Generalized weakness Osteoporosis Arthritis Surgical History No pertinent past surgical history Social History Housing: Assisted Living Facility Alcohol intake: never Patient Tobacco Use Status: Never used Tobacco e-Cigarette/Vaping Use: Never Used Second Hand Smoke Exposure: No service: No Current occupational status: retired and disabled Current occupational exposures/hazards: No Cognitive needs: Yes (cane) Hearing needs: Yes Vision needs: No Review of Systems Const All systems reviewed & are unremarkable except as noted in HPI and below Physical Exam General: Appears afebrile. Alert and oriented. Mood and affect appropriate. Hard of hearing bilaterally. Follows and participates in conversation appropriately. Respiratory effort is unlabored. No cough. Able to transition from sit to stand unassisted. Uses cane/walker. Back/Spine/Pelvis Cervical Spine: loss of normal cervical lordosis, cervical muscular tenderness and pain with cervical ROM Thoracic/Lumbar Spine: pain with thoraco-lumbar ROM, thoraco-lumbar ROM limited, thoracic spinal tenderness and lumbar spinal tenderness Extrem General: Yes capillary refill normal, Yes no clubbing, cyanosis or edema and Yes no calf tenderness Left lower extremity: knee (Limited ROM due to pain.) Details: normal to inspection, tenderness Location: of the patella, of the medial joint line and of the lateral joint line and crepitus; no swelling, no ecchymosis and no unusual warmth Psych Appearance: grossly normal and well kempt Mental Status: mental status grossly normal and other (Forgetful. Lives with DUB ROOM ENGINEER 24/7 care) Speech and movement: Normal speech and movement present Affect: normal affect Attitude: cooperative Thought process: Normal thought process present Thought content: Normal thought content present, suicidality (none), no hallucinations and Depressive thoughts present Insight: Fair insight present (Psych) Judgement: Fair judgement present (Psych) Results Reviewed Results Reviewed: XR SHOULDER, RIGHT 01/21/22 CLINICAL INFORMATION: Right shoulder pain. FINDINGS: There is no evidence of acute fracture or dislocation of the right shoulder. There is degenerative spurring about the glenohumeral joint. There is also noted to be some cartilage calcification about the humeral head with appearance of possible chondrocalcinosis. No widening of the coracoclavicular space is seen. IMPRESSION: Degenerative change of the glenohumeral joint. XR KNEE, LEFT 01/21/22 CLINICAL INFORMATION: Left knee pain. FINDINGS: There is no evidence of acute fracture or dislocation of the left knee. There is chondrocalcinosis present. There is mild narrowing of the medial joint space compartment. There is degenerative change of the patellofemoral joint with spurring of both the medial and lateral facets of the patella and some irregularity seen about the medial facet. There is spurring about the patellar site of insertion of the quadriceps tendon. No effusion is appreciated. Prominent vascular calcification is seen. IMPRESSION: Degenerative changes of the left knee predominantly at the patellofemoral joint. Chondrocalcinosis. XR CERVICAL SPINE 01/21/22 CLINICAL INFORMATION: Pain. FINDINGS: No abnormal prevertebral soft tissue swelling is seen. There is loss of the normal cervical spine lordosis. There is significant disc space narrowing present with marginal spurring and bridging C3-C7. There is facet arthropathy seen throughout the C2-C7. Lucency is seen about the posterior aspect of the L2 vertebral body and facet which is likely related to artifact rather than a true fracture. IMPRESSION: Significant cervical spondylosis as described. Assessment & Plan Assessment & Plan (1) Cervical spondylosis: Code(s): M47.812 - Spondylosis without myelopathy or radiculopathy, cervical region Category: Medical (2) Opioid contract exists: Code(s): Z79.891 - moth exterminator (current) use of opiate analgesic Category: Medical (3) Left knee pain: Code(s): M25.562 - Pain in left knee Category: Medical (4) Osteoarthritis of left knee: Code(s): M17.12 - Unilateral primary osteoarthritis, left knee Category: Medical (5) Low back pain: Code(s): M54.50 - Low back pain, unspecified Category: Medical (6) Disc disease, degenerative, cervical: Code(s): M50.30 - Other cervical disc degeneration, unspecified cervical region Category: Medical (7) Chronic pain: Code(s): G89.29 - Other chronic pain Category: Medical Qualifiers: Chronic pain type: chronic pain syndrome Qualified Code(s): G89.4 - Chronic pain syndrome (8) Polyarthralgia: Code(s): M25.50 - Pain in unspecified joint Category: Medical Plan Patient has shown accountability for his medication regimen and the film count was slightly short but still within 1 day allowance. There is no evidence of misuse, abuse or diversion at this time. MassPat reviewed. We will increase oxycodone 5 mg from TID to QID prn with advanced date of 07/01/24 for moderate-severe pain, especially left knee pain. Continue to monitor for side effects and precautions were discussed with patient and DUB ROOM ENGINEER. Encouraged adequate daily hydration, dietary fiber, and bowel regime as needed. Patient has Narcan at home. Pending PA approval for Left diagnostic GNB with local and fluoroscopy for potential genicular RFA procedure. Expectations, risks and benefits were reviewed. Patient is aware he will be contacted to schedule this procedure. Continue lidocaine patches, cold and heat therapy, and elevation. All questions were answered and he is agreeable to the plan. Follow up in 4 weeks pill count and sooner as needed. Medications: Changed From oxycodone Partial Fill upon patient request. 5 mg PO TID 30 days PRN 90 tabs 0RF pain (scale score 7-10) M47.812 - Spondylosis without myelopathy or radiculopathy, cervical region, M50.30 - Other cervical disc degeneration, unspecified cervical region To oxycodone Partial Fill upon patient request. 5 mg PO QID 30 days PRN 120 tabs 0RF pain (scale score 7-10) M47.812 - Spondylosis without myelopathy or radiculopathy, cervical region, M50.30 - Other cervical disc degeneration, unspecified cervical region Coding Level of Care Code Est Pt Level 4 (22206) Complex EM visit Add On G2211 Diagnoses Cervical spondylosis M47.812 Opioid contract exists Z79.891 Left knee pain M25.562 Osteoarthritis of left knee M17.12 Low back pain M54.50 Disc disease, degenerative, cervical M50.30 Chronic pain syndrome G89.4 Chronic pain type: chronic pain syndrome Polyarthralgia M25.50
[2024-06-25 11:13] VITALS: BP 95/54; PULSE 158; O2SAT 98; BMI 25.4
[2024-06-25 11:14] VITALS: PULSE 91; O2SAT 98
--- OUTSIDE RECORDS SUMMARY | 2024-06-25 11:28 | XMS_ITS | Clinical Summary ---
Author Organization [facility] Address [address] [place] [address] Care Team Providers Care Spot Worker Name Role Phone Dedra De La Torre [...] Recently Relevant to Health Maintenance Care Teams Spot Worker Relationship Specialty Start Date End Date Dedra De La Torre MD PCP - General Internal Medicine 10/29/21
== END 2024-06-25 11:23 | disposition home or self-care (01) ==
LOC: HO.PMC 10:58
PROVIDERS: PCP Family Medicine; Visit Provider Nurse Practitioner Family
DX: M47.812 Spondylosis without myelopathy or radiculopathy, cervical region (principal); Z79.891 Long term (current) use of opiate analgesic; M25.562 Pain in left knee; M17.12 Unilateral primary osteoarthritis, left knee; M54.50 Low back pain, unspecified; M50.30 Other cervical disc degeneration, unspecified cervical region; G89.4 Chronic pain syndrome; M25.50 Pain in unspecified joint
CPT/HCPCS: 99214; G2211

== ENCOUNTER → 2024-06-25 10:58 | Outpatient (BNVA) | payer OTHER, SELFPAY | PROVIDERS: PCP Family Medicine; Visit Provider Nurse Practitioner Family | DX: M47.812 Spondylosis without myelopathy or radiculopathy, cervical region (principal); M17.12 Unilateral primary osteoarthritis, left knee; M54.50 Low back pain, unspecified; M50.30 Other cervical disc degeneration, unspecified cervical region; M25.50 Pain in unspecified joint; G89.4 Chronic pain syndrome; Z51.81 Encounter for therapeutic drug level monitoring; Z79.891 Long term (current) use of opiate analgesic | CPT/HCPCS: 99212 ==

== ENCOUNTER 2024-07-05 14:02 | Outpatient (AMB) | payer OTHER, SELFPAY ==
--- NOTE | 2024-07-05 13:56 | A.OFFPC_ITS ---
Intake Visit Reasons: f/u labs via telemed Allergies No Known Allergies Allergy (Verified 07/05/24 13:56) Tobacco use date assessed: 09/16/23 Dental Screening Dental Screen Date: 09/16/23 HPI f/u labs via telemed HPI Details Telemedicine?appointment?with?daughter?and?patient?to?follow-up?on?labs Mild?anemia Elevated?LDL?cholesterol Daughter?notes?that?since?starting?escitalopram?he?has?been?more?confused?and?ag gressive She?is?uncertain?if?it?is?truly?due?to?the?medication?or?progression?disease. [facility] Medical History Depression with anxiety Progressive supranuclear palsy Thrombocytopenia Lower extremity weakness Left wrist pain Generalized weakness Osteoporosis Arthritis Surgical History No pertinent past surgical history Social History Housing: Assisted Living Facility Alcohol intake: never Patient Tobacco Use Status: Never used Tobacco e-Cigarette/Vaping Use: Never Used Second Hand Smoke Exposure: No service: No Current occupational status: retired and disabled Current occupational exposures/hazards: No Cognitive needs: Yes (cane) Hearing needs: Yes Vision needs: No Questionnaire Thrive Questionnaire Date Thrive assessed: 06/15/24 I am a: Parent/Caregiver What is your living situation today?: I have a steady place to live Within the past 12 months, did the food you bought not last and you didn't have the money to get more?: Never true Within the past 12 months, did you worry whether your food would run out before you got money to buy more?: Never true Do you have trouble paying for medicines?: No Do you have trouble getting transportation to medical appointments?: No Do you have trouble paying your heating and electricity bill?: No Do you have trouble taking care of your child, family member or friend?: No Do you have trouble with day-to-day activities such as bathing, preparing meals, shopping, managing finances, etc.?: Yes Are you currently unemployed and looking for a job?: I choose not to answer this question Are you interested in more education?: No Please select the resources that you would like help with: None Currently or been in a relationship where the following occur: No concerns reported THRIVE Score: 0 FABIENNE-7 AMB Questionnaire FABIENNE-7 Date FABIENNE - 7 assessed: 09/16/23 Source: Developed by Drs. Rad Dimas, Maria Elena Chaidez, Raoul Higuera and colleagues, with an educational eleanor from [employer]. Review of Systems Const Denies chills, Denies fatigue, Denies fever(s), Denies headache(s) and Denies weakness ENT Denies dizziness and Denies headache(s) Card Denies chest pain, Denies lightheadedness, Denies dyspnea and Denies other (Palpitations) Resp Denies cough, Denies dyspnea, Denies wheezing and Denies other ( shortness of breath) Musc Denies numbness and Denies tingling Neuro Details: Ongoing?confusion?and?some?aggression Denies dizziness, Denies headache(s), Denies numbness, Denies tingling, Denies paresthesias and Denies weakness Psych Reports anxiety and Reports depression Endo Denies fatigue Aller/Immun Denies wheezing Physical exam (Primary Care) Tobacco/Smoking Status: Tobacco use Status Tobacco use date assessed 09/16/23 07/05/24 13:58 Patient Tobacco Use Status Never used Tobacco 07/05/24 13:58 e-Cigarette/Vaping Use Never Used 07/05/24 13:58 Thrive Assessment: Date of Thrive Assessment Date Thrive assessed 06/15/24 07/05/24 13:58 Currently or been in a relationship where the following occur: No concerns reported Telehealth Telehealth Telehealth Platform: Telephone Location of provider rendering services: practice address Location of patient: address on file Patient Identification confirmed using: Name, : Yes Telehealth method: voice only Patient verbally consented to treatment: Yes Patient verbally consented to billing insurance company: Yes Patient informed of any privacy concerns related to visit: Yes Minutes spent on Phone/Video with Pt.: 20 Coding Level of Care Code Tele Est Pt Level 3 (56929) Diagnoses Depression with anxiety F41.8 Mild episode of recurrent major depressive disorder F33.0 Major depression episode severity: mild 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 Dyskinesia presence: with dyskinesia Fluctuating manifestations: with fluctuating manifestations Anemia D64.9 Mixed hyperlipidemia E78.2 Hyperlipidemia type: mixed hyperlipidemia Assessment & Plan Assessment & Plan (1) Depression with anxiety: Code(s): F41.8 - Other specified anxiety disorders Category: Medical (2) MDD (major depressive disorder), recurrent episode: Code(s): F33.9 - Major depressive disorder, recurrent, unspecified Category: Medical Qualifiers: Major depression episode severity: mild Qualified Code(s): F33.0 - Major depressive disorder, recurrent, mild (3) Parkinson disease: Code(s): G20.A1 - Parkinson's disease without dyskinesia, without mention of fluctuations Category: Medical Qualifiers: Dyskinesia presence: with dyskinesia Fluctuating manifestations: with fluctuating manifestations Qualified Code(s): G20.B2 - Parkinson's disease with dyskinesia, with fluctuations (4) Anemia: Code(s): D64.9 - Anemia, unspecified Category: Medical (5) HLD (hyperlipidemia): Code(s): E78.5 - Hyperlipidemia, unspecified Category: Medical Qualifiers: Hyperlipidemia type: mixed hyperlipidemia Qualified Code(s): E78.2 - Mixed hyperlipidemia Plan Had?started?escitalopram?due?to?worsening?depression?at?last?visit Patient's?daughter?notes?more?confusion?and?agg ression.??Unclear?if?this?is?due?to?the?medication?or?disease?process. Will?switch?to?sertraline. If?he?is?still?having?similar?symptoms?they?can?discontinue?this. Continue?Seroquel?as?prescribed Reorient?patient?and?we?discussed?techniques?to distract?and?disengage?from?confrontations?that?would?cause?the?patient?distress . Mild?anemia?and?we?will?continue?to?monitor?the Hyperlipidemia?and?I?sent?a?script?for?Zetia Orders: Orders Complete Blood Count Auto Diff Today Z00.00 - Encounter for general adult medical examination without abnormal findings Comprehensive [place]. Panel Fast Today Z00.00 - Encounter for general adult medical examination without abnormal findings Lipid Panel Today Z00.00 - Encounter for general adult medical examination without abnormal findings Medications: New sertraline 50 mg PO DAILY 90 days 90 tabs 2RF ezetimibe (Zetia) 10 mg PO DAILY 90 days 90 tabs 3RF Discontinued escitalopram oxalate Discontinued Reason: Doctor's Order 10 mg PO DAILY 90 days 90 tabs 3RF
--- OUTSIDE RECORDS SUMMARY | 2024-07-05 14:07 | XMS_ITS | Clinical Summary ---
Author Organization [facility] Address [address] [place] [address] Care Team Providers Care Optical Engineering Manager Name Role Phone Dedra De La Torre [...] Recently Relevant to Health Maintenance Care Teams Optical Engineering Manager Relationship Specialty Start Date End Date Dedra De La Torre MD PCP - General Internal Medicine 10/29/21
== END 2024-07-05 17:05 ==
LOC: HO.HMCFM 14:02
PROVIDERS: PCP Family Medicine; Visit Provider Family Medicine
DX: F41.8 Other specified anxiety disorders (principal); F33.0 Major depressive disorder, recurrent, mild; G20.B2 Parkinson's disease with dyskinesia, with fluctuations; D64.9 Anemia, unspecified; E78.2 Mixed hyperlipidemia

== ENCOUNTER → 2024-07-05 14:02 | Outpatient (BNVA) | payer OTHER, SELFPAY | PROVIDERS: PCP Family Medicine; Visit Provider Family Medicine | DX: Z13.89 Encounter for screening for other disorder (principal) ==

== ENCOUNTER 2024-07-26 12:52 | Outpatient (AMB) | payer OTHER, SELFPAY ==
--- NOTE | 2024-07-26 12:56 | A.OFFVIS_ITS ---
Vital Signs 07/26/24 13:04 Height 5 ft 2 in Weight 140 lb BMI 25.6 BP 170/97 H Blood Pressure Location Lt brachial Position Sitting Pulse 86 Pulse Source Pulse Oximeter Pulse Oximetry (%) 97 Oxygen Delivery Method Room Air Intake Visit Reasons: Pill Count Intake Note: Brad comes ion today for a pill count to oxycodone, patient should have 10 tablets and presents with 25 tablets which he last took today 07/26/24 at 8:30am. Hydrometeorologist Required: No Accompanied by: RETURNS CLERK Allergies No Known Allergies Allergy (Verified 07/26/24 13:03) HPI Comments Details: Patient presents today for a pill count. Patient is supposed to have #10 pills, in his possession has #25 pills. Patient reports mild to moderate analgesia on current medication regime. Patient and his RETURNS CLERK report improved pain management since recent increased in opioid frequency from TID to QID without significant side effects, excessive drowsiness or uncontrolled constipation. However, patient's RETURNS CLERK reports concern for patient right leg pain associated with warm and lump just below right knee and associated right calf tenderness and pain with walking. Patient also reports significant muscle spasms in his neck, left worse than right. Pain has been affecting his mobility, ADLs, mood, appetite and quality of life. They are planning to follow up with PCP regarding lump and swelling of RLE. Denies any fever, chills, weight loss, shortness of breaths, chest pain, nausea, sedation, dizziness, or urinary retention except occasional constipation. Denies any other significant changes in medical history since last office visit. PRIOR: Patient is 83-year-old male with history of arthritis, osteoporosis, Parkinson's, anxiety and depression, chronic left knee, right shoulder and neck pain, presents today for initial evaluation of chronic neck pain. Patient denies any recent falls, trauma, or injury. He recently completed formal physical therapy for gait imbalance training with some improvement. Patient is accompanied by RETURNS CLERK Aicha. Denies any previous spine or joint injections or surgery. RETURNS CLERK reports patient has increased limping, shuffling gait and dragging his feet due to Parkinson's. He follows with Dr. Isbell at [facility]. Patient experiences chronic pain in neck, arms, shoulders, and legs with daily activities, functioning, walking, movements and cold weather. Pain is constant and is rated at 9/10. Patient has been managing pain with Tylenol, NSAIDs, topical applications and gabapentin with partial relief. RETURNS CLERK reports patient was under better pain control with low dose oxycodone over 5-6 years which allowed him to be less symptomatic and more functional. Patient also reports significant concerns in his neck and arms due to Parkinsons. Denies any fever or chills, rash, infection, constipation, sedations, nausea, vomiting, abdominal pain, chest pain, shortness of breaths, bladder or bowel dysfunction or saddle anesthesia. Location: Neck, shoulders, knee, bilateral legs Duration: Chronic pain worsening for past 5 years Characteristics of symptom or complaint: Aching, tingling, numbness, weakness, throbbing, sharp, heavy Aggravating or associated factors: Walking, movements, prolonged sitting or standing, laying, sleeping Relieving factors: Minimal relief with gabapentin, NSAIDs, Tylenol, heat therapy, topicals Treatment: Physical therapy [facility] Medical History Depression with anxiety Progressive supranuclear palsy Thrombocytopenia Lower extremity weakness Left wrist pain Generalized weakness Osteoporosis Arthritis Surgical History No pertinent past surgical history Social History Housing: Assisted Living Facility Alcohol intake: never Patient Tobacco Use Status: Never used Tobacco e-Cigarette/Vaping Use: Never Used Second Hand Smoke Exposure: No service: No Current occupational status: retired and disabled Current occupational exposures/hazards: No Cognitive needs: Yes (cane) Hearing needs: Yes Vision needs: No Review of Systems Const All systems reviewed & are unremarkable except as noted in HPI and below Reports as per HPI, Denies body aches, Denies chills, Reports difficulty sleeping, Reports fatigue, Denies fever(s), Denies headache(s), Denies malaise and Denies night sweats ENT Denies headache(s) Skin/Breast Reports skin swelling (and lump right lower leg with decreased redness from last week) Neuro Denies headache(s) Endo Reports fatigue Physical Exam Vital Signs: Last Vital Signs Pulse 86 07/26/24 13:04 BP 170/97 H 07/26/24 13:04 Pulse Ox 97 07/26/24 13:04 Oxygen Delivery Method Room Air 07/26/24 13:04 BMI result Body Mass Index 25.6 General: Appears afebrile. Alert and oriented. Mood and affect appropriate. Hard of hearing bilaterally. Follows and participates in conversation appropriately. Respiratory effort is unlabored. No cough. Able to transition from sit to stand unassisted. Uses cane with ambulation. Neck Neck: Yes normal visual inspection, Yes no lymphadenopathy, Yes supple, No anterior neck swelling, Yes no JVD, No prominent supraclavicular fat pad and No prominent dorsocervical fat pad Back/Spine/Pelvis Cervical Spine: loss of normal cervical lordosis, cervical muscular tenderness, pain with cervical ROM, cervical spasm (left) and No Cervical spine tenderness Thoracic/Lumbar Spine: thoracic and lumbar spine normal to inspection, pain with thoraco-lumbar ROM, thoraco-lumbar ROM limited, thoracic spinal tenderness and lumbar spinal tenderness Extrem General: Yes capillary refill normal, Yes no pedal edema, Yes calf tenderness (right) and No cyanosis Right lower extremity: knee (Limited ROM due to pain.) Details: normal to inspection, tenderness Location: of the medial joint line and of the lateral joint line, swelling Location: of the distal upper leg Details: anterolaterally (lump noted with mild erythema) and warmth Location: anteriorly and laterally Psych Appearance: grossly normal and well kempt Mental Status: mental status grossly normal and other (Forgetful. Lives with RETURNS CLERK 24/7 care) Speech and movement: Normal speech and movement present Affect: normal affect Attitude: cooperative Thought process: Normal thought process present Thought content: Normal thought content present, suicidality (none), no hallucinations and Depressive thoughts present Insight: Fair insight present (Psych) Judgement: Fair judgement present (Psych) Results Reviewed Results Reviewed: XR SHOULDER, RIGHT 01/21/22 CLINICAL INFORMATION: Right shoulder pain. FINDINGS: There is no evidence of acute fracture or dislocation of the right shoulder. There is degenerative spurring about the glenohumeral joint. There is also noted to be some cartilage calcification about the humeral head with appearance of possible chondrocalcinosis. No widening of the coracoclavicular space is seen. IMPRESSION: Degenerative change of the glenohumeral joint. XR KNEE, LEFT 01/21/22 CLINICAL INFORMATION: Left knee pain. FINDINGS: There is no evidence of acute fracture or dislocation of the left knee. There is chondrocalcinosis present. There is mild narrowing of the medial joint space compartment. There is degenerative change of the patellofemoral joint with spurring of both the medial and lateral facets of the patella and some irregularity seen about the medial facet. There is spurring about the patellar site of insertion of the quadriceps tendon. No effusion is appreciated. Prominent vascular calcification is seen. IMPRESSION: Degenerative changes of the left knee predominantly at the patellofemoral joint. Chondrocalcinosis. XR CERVICAL SPINE 01/21/22 CLINICAL INFORMATION: Pain. FINDINGS: No abnormal prevertebral soft tissue swelling is seen. There is loss of the normal cervical spine lordosis. There is significant disc space narrowing present with marginal spurring and bridging C3-C7. There is facet arthropathy seen throughout the C2-C7. Lucency is seen about the posterior aspect of the L2 vertebral body and facet which is likely related to artifact rather than a true fracture. IMPRESSION: Significant cervical spondylosis as described. Assessment & Plan Assessment & Plan (1) Right calf pain: Code(s): M79.661 - Pain in right lower leg Category: Medical (2) Localized swelling, mass and lump, right lower limb: Code(s): R22.41 - Localized swelling, mass and lump, right lower limb Category: Medical (3) Cervical spondylosis: Code(s): M47.812 - Spondylosis without myelopathy or radiculopathy, cervical region Category: Medical (4) Muscle spasms of neck: Code(s): M62.838 - Other muscle spasm Category: Medical (5) Opioid contract exists: Code(s): Z79.891 - FPC (current) use of opiate analgesic Category: Medical (6) Osteoarthritis of left knee: Code(s): M17.12 - Unilateral primary osteoarthritis, left knee Category: Medical (7) Low back pain: Code(s): M54.50 - Low back pain, unspecified Category: Medical (8) Disc disease, degenerative, cervical: Code(s): M50.30 - Other cervical disc degeneration, unspecified cervical region Category: Medical (9) Chronic pain: Code(s): G89.29 - Other chronic pain Category: Medical Qualifiers: Chronic pain type: chronic pain syndrome Qualified Code(s): G89.4 - Chronic pain syndrome Plan Patient has shown accountability for his medication regimen and the film count was slightly short but still within 1 day allowance. There is no evidence of misuse, abuse or diversion at this time. MassPat reviewed. Script sent for oxycodone 5 mg from QID prn with advanced date of 07/31/24 for moderate-severe pain. Continue to monitor for side effects and precautions were discussed with patient and RETURNS CLERK. Encouraged adequate daily hydration, dietary fiber, and bowel regime as needed. Patient has Narcan at home. Script provided for baclofen for significant neck muscle spasms, worse on the left with limited ROM. Side effects and precautions were reviewed with patient and RETURNS CLERK. Patient is scheduled on 08/12/[address] Negrete for Left diagnostic GNB with local and fluoroscopy for potential genicular RFA procedure. Continue lidocaine patches, cold and heat therapy, and elevation. Patient encouraged to follow up with PCP re: right lower leg calf tenderness and lump with mild erythema. US venous duplex entered to rule out DVT. Patient and RETURNS CLERK are aware to report to ER or Urgent clinic for worsening symptoms. All questions were answered and he is agreeable to the plan. Follow up in 4 weeks pill count and sooner as needed. Orders: Orders US venous duplex LE RT Today M79.661 - Pain in right lower leg, R22.41 - Localized swelling, mass and lump, right lower limb Medications: New baclofen 10 mg PO BID 30 days 60 tabs 0RF muscle spasms M47.812 - Spondylosis without myelopathy or radiculopathy, cervical region, M62.838 - Other muscle spasm Refilled oxycodone Partial Fill upon patient request. 5 mg PO QID 30 days PRN 120 tabs 0RF pain (scale score 7-10) M47.812 - Spondylosis without myelopathy or radiculopathy, cervical region, M50.30 - Other cervical disc degeneration, unspecified cervical region oxycodone Partial Fill upon patient request. 5 mg PO QID 30 days PRN 120 tabs 0RF pain (scale score 7-10) M47.812 - Spondylosis without myelopathy or radiculopathy, cervical region, M50.30 - Other cervical disc degeneration, unspecified cervical region lidocaine 5% 1 patch topical DAILY 30 days 30 ea 3RF pain M17.12 - Unilateral primary osteoarthritis, left knee, M25.562 - Pain in left knee Coding Level of Care Code Est Pt Level 4 (66210) Complex EM visit Add On G2211 Diagnoses Right calf pain M79.661 Localized swelling, mass and lump, right lower limb R22.41 Cervical spondylosis M47.812 Muscle spasms of neck M62.838 Opioid contract exists Z79.891 Osteoarthritis of left knee M17.12 Low back pain M54.50 Disc disease, degenerative, cervical M50.30 Chronic pain syndrome G89.4 Chronic pain type: chronic pain syndrome
[2024-07-26 13:04] VITALS: BP 170/97; PULSE 86; O2SAT 97; BMI 25.6
--- OUTSIDE RECORDS SUMMARY | 2024-07-26 14:31 | XMS_ITS | Clinical Summary ---
Author Organization [facility] Address [address] [place] [address] Care Team Providers Care Roofing Layer Name Role Phone Dedra De La Torre [...] Recently Relevant to Health Maintenance Care Teams Roofing Layer Relationship Specialty Start Date End Date Dedra De La Torre MD PCP - General Internal Medicine 10/29/21
== END 2024-07-26 13:20 | disposition home or self-care (01) ==
LOC: HO.PMC 12:54
PROVIDERS: PCP Family Medicine; Visit Provider Nurse Practitioner Family
DX: M79.661 Pain in right lower leg (principal); R22.41 Localized swelling, mass and lump, right lower limb; M47.812 Spondylosis without myelopathy or radiculopathy, cervical region; M62.838 Other muscle spasm; Z79.891 Long term (current) use of opiate analgesic; M17.12 Unilateral primary osteoarthritis, left knee; M54.50 Low back pain, unspecified; M50.30 Other cervical disc degeneration, unspecified cervical region; G89.4 Chronic pain syndrome
CPT/HCPCS: 99214; G2211

== ENCOUNTER → 2024-07-26 12:52 | Outpatient (BNVA) | payer OTHER, SELFPAY | PROVIDERS: PCP Family Medicine; Visit Provider Nurse Practitioner Family | DX: M79.661 Pain in right lower leg (principal); R22.41 Localized swelling, mass and lump, right lower limb; M50.30 Other cervical disc degeneration, unspecified cervical region; M47.812 Spondylosis without myelopathy or radiculopathy, cervical region; M54.50 Low back pain, unspecified; G89.4 Chronic pain syndrome; M17.12 Unilateral primary osteoarthritis, left knee; M62.838 Other muscle spasm; Z79.891 Long term (current) use of opiate analgesic | CPT/HCPCS: 99212 ==

== ENCOUNTER 2024-07-30 14:31 | Outpatient (REF) | payer OTHER, SELFPAY ==
--- NOTE | ~2024-07-30 | US_ITS ---
EXAMINATION: US TRIPLEX LOWER EXTREMITY, RIGHT CLINICAL INFORMATION: Right leg pain COMPARISON: None available. TECHNIQUE: Color-flow triplex imaging with spectral analysis and compression Doppler were performed on the right lower extremity. FINDINGS: Respiratory variation, normal compression and augmented flow are noted throughout the right lower extremity. The visualized common femoral vein, superficial femoral vein, profunda femoral vein, popliteal vein and midcalf peroneal and posterior tibial venous segments show no evidence of deep venous thrombosis. There is a mass superficial to the lateral gastrocnemius muscle in the mid calf that measures 7.5 x 1.1 cm (CC by AP). It demonstrates low-level internal echogenicity and increased through transmission. US/US venous duplex LE RT IMPRESSION: No evidence of deep venous thrombosis involving the right lower extremity. 7.5 x 1.1 cm complex collection superficial to the lateral gastrocnemius muscle likely represents a proteinaceous fluid collection such as hematoma or chronic seroma. Correlate for signs and symptoms to rule in or out abscess. Electronically signed by: Masoud Ruby MD 07/30/2024 03:30 PM EDT
--- OUTSIDE RECORDS SUMMARY | 2024-07-30 14:34 | XMS_ITS | Clinical Summary ---
Author Organization [facility] Address [address] [place] [address] Care Team Providers Care Ballistics Expert Name Role Phone Dedra De La Torre [...] Recently Relevant to Health Maintenance Care Teams Ballistics Expert Relationship Specialty Start Date End Date Derda De La Torre MD PCP - General Internal Medicine 10/29/21
== END 2024-07-30 14:32 | disposition home or self-care (01) ==
LOC: HO.US 14:31
PROVIDERS: Visit Provider Nurse Practitioner Family
DX: M79.661 Pain in right lower leg (principal); R22.41 Localized swelling, mass and lump, right lower limb
CPT/HCPCS: 93971

== ENCOUNTER → 2024-07-30 14:36 | Outpatient (BNV) | payer OTHER, SELFPAY | PROVIDERS: Visit Provider Radiology Diagnostic Radiology | DX: R22.41 Localized swelling, mass and lump, right lower limb (principal) | CPT/HCPCS: 93971 ==

== ENCOUNTER 2024-08-12 06:22 | Outpatient (REF) | payer OTHER, SELFPAY ==
--- OUTSIDE RECORDS SUMMARY | 2024-08-12 06:24 | XMS_ITS | Clinical Summary ---
Author Organization [facility] Address [address] [place] [address] Care Team Providers Care Middleware Engineer Name Role Phone Dedra De La Torre [...] Recently Relevant to Health Maintenance Care Teams Middleware Engineer Relationship Specialty Start Date End Date Dedra De La Torre MD PCP - General Internal Medicine 10/29/21
== END 2024-08-12 06:23 | disposition home or self-care (01) ==
LOC: CF 06:22
PROVIDERS: Visit Provider Internal Medicine
DX: Z13.89 Encounter for screening for other disorder (principal)

== ENCOUNTER 2024-09-09 06:44 | Outpatient (REF) | payer OTHER, SELFPAY ==
--- OUTSIDE RECORDS SUMMARY | 2024-09-09 06:46 | XMS_ITS | Clinical Summary ---
Author Organization [facility] Address [address] [place] [address] Care Team Providers Care Tester Equipment Name Role Phone Dedra De La Torre [...] 2017 Cholesterol Screening (Lipid Panel) 01/30/2022 05/24/2015 Falls Risk Assessment 01/30/2022 Social Influencers of Health Screening 01/30/2022 COVID-19 Vaccine (1 - 2023-2 5 season) 2023 Depression Screening 02/18/2024 Influenza Vaccine (#1) 2024 DTaP,Tdap,and Td Vaccines (2 - Td [...] Relevant to Health Maintenance Care Teams Tester Equipment Relationship Specialty Start Date End Date Dedra De La Torre MD PCP - General Internal Medicine 10/29/21
== END 2024-09-09 06:45 | disposition home or self-care (01) ==
LOC: CF 06:44
PROVIDERS: Visit Provider Internal Medicine
DX: M25.562 Pain in left knee (principal)
CPT/HCPCS: 64450; J2003; J2795

== ENCOUNTER 2024-09-09 13:52 | Outpatient (AMB) | payer OTHER, SELFPAY ==
[2024-09-09 13:59] VITALS: BP 132/84; PULSE 90; RESP 16; O2SAT 96
--- NOTE | 2024-09-09 13:59 | A.OFFVIS_ITS ---
Vital Signs 09/09/24 13:59 Height 5 ft 2 in BP 132/84 Blood Pressure Location Lt brachial Position Sitting Respiration 16 Pulse 90 Pulse Source Pulse Oximeter Pulse Oximetry (%) 96 Oxygen Delivery Method Room Air Intake Visit Reasons: Left Dx SNB Allergies No Known Allergies Allergy (Verified 08/23/24 12:55) HPI HPI Left Dx SNB: Details: Patient presents for scheduled procedure. Denies any recent cough, cold, infection, fever or other significant changes in medical history since last office visit. [facility] Medical History Depression with anxiety Progressive supranuclear palsy Thrombocytopenia Lower extremity weakness Left wrist pain Generalized weakness Osteoporosis Arthritis Surgical History No pertinent past surgical history Social History Housing: Assisted Living Facility Alcohol intake: never Patient Tobacco Use Status: Never used Tobacco e-Cigarette/Vaping Use: Never Used Second Hand Smoke Exposure: No service: No Current occupational status: retired and disabled Current occupational exposures/hazards: No Cognitive needs: Yes (cane) Hearing needs: Yes Vision needs: No Physical Exam Vital Signs: Last Vital Signs Pulse 90 09/09/24 13:59 Resp 16 09/09/24 13:59 BP 132/84 09/09/24 13:59 Pulse Ox 96 09/09/24 13:59 Oxygen Delivery Method Room Air 09/09/24 13:59 Office Procedures Nerve Block Details: Left adductor canal saphenous nerve block, ultrasound-guided After obtaining written consent, pre-procedure blood pressure and heart rate were stable and recorded in the nursing record. The patient was placed supine on the table. The medial thigh area overlying the adductor canal was widely prepped with chloraprep, allowed to dry and sterilely draped. Using ultrasound, the appropriate landmarks including the femoral artery and saphenous nerve were identified. The skin overlying the target was anesthetized with 0.5% lidocaine. A 21 gauge 80 mm echostim needle was advanced under sonographic guidance to the adductor canal. Aspiration was negative for heme and synovial fluid. 10 cc of lidocaine 1%? was injected around the saphenous nerve. The needles were removed, skin cleansed and a sterile bandage was applied. The patient tolerated the procedure well and no complications were encountered. Following the procedure the patient's vital signs and knee strength were stable. The patient was discharged home in good condition with post-procedural instructions. Time Out: Immediately prior to the procedure, the following was verbally confirmed that there is a signed consent form and that the correct patient, planned procedure, site and side are consistent with documentation and that necessary equipment and/or blood products are available prior to the start of the case. Complications: none EBL: <1 cc 93229 - Femoral (adductor injection) Procedure code (CPT) selection complete Assessment & Plan Assessment & Plan (1) Left knee pain: Code(s): M25.562 - Pain in left knee Category: Medical Plan Patient is status post left saphenous nerve block. Patient tolerated procedure well and was discharged home in stable condition with discharge instructions. All questions were answered. We will follow-up via telephone or in clinic to assess response to therapy. A follow-up appointment was made during today's visit. Orders: Orders US guide needle placement 09/09/24 M25.562 - Pain in left knee Coding Level of Care Code Procedure Only Diagnoses Left knee pain M25.562 CPT Codes Nerve Block - Nerve Block 7: 84260 - Femoral (adductor injection) ([id number])
== END 2024-09-09 14:32 | disposition home or self-care (01) ==
LOC: HO.PMCPRC 13:52
PROVIDERS: PCP Family Medicine; Visit Provider Internal Medicine
DX: M25.562 Pain in left knee (principal)
CPT/HCPCS: 64450; 76942

== ENCOUNTER 2024-09-16 14:29 | Outpatient (AMB) | payer OTHER, SELFPAY ==
--- NOTE | 2024-09-16 14:32 | A.OFFVIS_ITS ---
Vital Signs 09/16/24 14:36 Height 5 ft 2 in BP 169/91 H Blood Pressure Location Lt brachial Position Sitting Pulse 101 H Pulse Source Pulse Oximeter Pulse Oximetry (%) 95 Oxygen Delivery Method Room Air Intake Visit Reasons: s/p Left Dx SNB Doctor Of Nurse Anesthesia Required: No Accompanied by: TIE IN HAND Allergies No Known Allergies Allergy (Verified 09/16/24 14:36) HPI Comments Details: The patient is an 84-year-old male presenting with bilateral knee pain. He underwent a left diagnostic saphenous nerve block at the left adductor canal one week ago to address more severe pain in the left knee. The patient reports that the pain relief lasted for more than six hours post-procedure, with significant improvement noted overnight per [facility]. Today he reports significant right knee pain and is interested to undergo diagnostic injection for the right side. He is managing pain with oxycodone, naproxen and topical applications with continued symptoms. The patient has a history of Parkinson's disease, which contributes to his difficulty with ambulation. He experiences challenges with using a walker and has been advised to obtain a wheelchair for better mobility. Denies any recent cough, cold, infection, fever or any significant changes in medical history since last office visit. Past Procedures: 09/09/24: Left adductor canal saphenous nerve block, [id number] pain relief for >6 hours PRIOR: Patient presents today for a pill count. Patient is supposed to have #10 pills, in his possession has #25 pills. Patient reports mild to moderate analgesia on current medication regime. Patient and his TIE IN HAND report improved pain management since recent increased in opioid frequency from TID to QID without significant side effects, excessive drowsiness or uncontrolled constipation. However, patient's T[facility] IN [facility] reports concern for patient right leg pain associated with warm and lump just below right knee and associated right calf tenderness and pain with walking. Patient also reports significant muscle spasms in his neck, left worse than right. Pain has been affecting his mobility, ADLs, mood, appetite and quality of life. They are planning to follow up with PCP regarding lump and swelling of RLE. Denies any fever, chills, weight loss, shortness of breaths, chest pain, nausea, sedation, dizziness, or urinary retention except occasional constipation. Denies any other significant changes in medical history since last office visit. PRIOR: Patient is 83-year-old male with history of arthritis, osteoporosis, Parkinson's, anxiety and depression, chronic left knee, right shoulder and neck pain, presents today for initial evaluation of chronic neck pain. Patient denies any recent falls, trauma, or injury. He recently completed formal physical therapy for gait imbalance training with some improvement. Patient is accompanied by JOEL Holcomb. Denies any previous spine or joint injections or surgery. [facility]IE IN [facility] reports patient has increased limping, shuffling gait and dragging his feet due to Parkinson's. He follows with Dr. Isbell at [facility]. Patient experiences chronic pain in neck, arms, shoulders, and legs with daily activities, functioning, walking, movements and cold weather. Pain is constant and is rated at 9/10. Patient has been managing pain with Tylenol, NSAIDs, topical applications and gabapentin with partial relief. TIE IN [facility] reports patient was under better pain control with low dose oxycodone over 5-6 years which allowed him to be less symptomatic and more functional. Patient also reports significant concerns in his neck and arms due to Parkinsons. Denies any fever or chills, rash, infection, constipation, sedations, nausea, vomiting, abdominal pain, chest pain, shortness of breaths, bladder or bowel dysfunction or saddle anesthesia. Location: Neck, shoulders, knee, bilateral legs Duration: Chronic pain worsening for past 5 years Characteristics of symptom or complaint: Aching, tingling, numbness, weakness, throbbing, sharp, heavy Aggravating or associated factors: Walking, movements, prolonged sitting or standing, laying, sleeping Relieving factors: Minimal relief with gabapentin, NSAIDs, Tylenol, heat therapy, topicals Treatment: Physical therapy [facility] Medical History Depression with anxiety Progressive supranuclear palsy Thrombocytopenia Lower extremity weakness Left wrist pain Generalized weakness Osteoporosis Arthritis Surgical History No pertinent past surgical history Social History Housing: Assisted Living Facility Alcohol intake: never Patient Tobacco Use Status: Never used Tobacco e-Cigarette/Vaping Use: Never Used Second Hand Smoke Exposure: No service: No Current occupational status: retired and disabled Current occupational exposures/hazards: No Cognitive needs: Yes (cane) Hearing needs: Yes Vision needs: No Review of Systems Const All systems reviewed & are unremarkable except as noted in HPI and below Physical Exam Vital Signs: Last Vital Signs Pulse 101 H 09/16/24 14:36 BP 169/91 H 09/16/24 14:36 Pulse Ox 95 09/16/24 14:36 Oxygen Delivery Method Room Air 09/16/24 14:36 General: Appears afebrile. Alert and oriented. Mood and affect appropriate. Hard of hearing bilaterally. Follows and participates in conversation appropriately. Respiratory effort is unlabored. No cough. Able to transition from sit to stand unassisted. Uses cane with ambulation. Extrem General: Yes capillary refill normal, Yes no clubbing, cyanosis or edema and Yes no calf tenderness Right lower extremity: knee (Limited ROM due to pain.) Details: normal to inspection, tenderness Location: of the patella, of the medial joint line and of the lateral joint line and crepitus; no ecchymosis, no deformity and no unusual warmth Left lower extremity: knee (Limited ROM due to pain.) Details: normal to inspection, tenderness Location: of the patella, of the medial joint line and of the lateral joint line and crepitus; no swelling, no ecchymosis, no deformity and no unusual warmth Results Reviewed Results Reviewed: XR SHOULDER, RIGHT 01/21/22 CLINICAL INFORMATION: Right shoulder pain. FINDINGS: There is no evidence of acute fracture or dislocation of the right shoulder. There is degenerative spurring about the glenohumeral joint. There is also noted to be some cartilage calcification about the humeral head with appearance of possible chondrocalcinosis. No widening of the coracoclavicular space is seen. IMPRESSION: Degenerative change of the glenohumeral joint. XR KNEE, LEFT 01/21/22 CLINICAL INFORMATION: Left knee pain. FINDINGS: There is no evidence of acute fracture or dislocation of the left knee. There is chondrocalcinosis present. There is mild narrowing of the medial joint space compartment. There is degenerative change of the patellofemoral joint with spurring of both the medial and lateral facets of the patella and some irregularity seen about the medial facet. There is spurring about the patellar site of insertion of the quadriceps tendon. No effusion is appreciated. Prominent vascular calcification is seen. IMPRESSION: Degenerative changes of the left knee predominantly at the patellofemoral joint. Chondrocalcinosis. XR CERVICAL SPINE 01/21/22 CLINICAL INFORMATION: Pain. FINDINGS: No abnormal prevertebral soft tissue swelling is seen. There is loss of the normal cervical spine lordosis. There is significant disc space narrowing present with marginal spurring and bridging C3-C7. There is facet arthropathy seen throughout the C2-C7. Lucency is seen about the posterior aspect of the L2 vertebral body and facet which is likely related to artifact rather than a true fracture. IMPRESSION: Significant cervical spondylosis as described. Assessment & Plan Assessment & Plan (1) Difficulty walking: Code(s): R26.2 - Difficulty in walking, not elsewhere classified Category: Medical (2) Parkinson disease: Code(s): G20.A1 - Parkinson's disease without dyskinesia, without mention of fluctuations Category: Medical Qualifiers: Dyskinesia presence: with dyskinesia Fluctuating manifestations: with fluctuating manifestations Qualified Code(s): G20.B2 - Parkinson's disease with dyskinesia, with fluctuations (3) Bilateral knee pain: Code(s): M25.561 - Pain in right knee; M25.562 - Pain in left knee Category: Medical (4) Bilateral primary osteoarthritis of knee: Code(s): M17.0 - Bilateral primary osteoarthritis of knee Category: Medical (5) Polyarthralgia: Code(s): M25.50 - Pain in unspecified joint Category: Medical Plan Patient is status post left saphenous nerve block with positive response. He is now presents with right knee pain worse than left knee. We will proceed with Right adductor canal saphenous nerve block, ultrasound-guided. Expectations, risks and benefits were reviewed. Patient is aware he will be contacted to schedule this procedure. Scripts provided for bilateral knee braces for support. He is in the process of obtaining wheelchair through his PCP for a better mobility. Neurology referral for second opinion per patient and his TIE IN HAND as they report his gait is worsening due to Parkinson's and knee OA. All questions and concerns answered and patient with the treatment plan. Follow-up after injections and sooner as needed. Orders: Referrals Neurology Referral G20.B2 - Parkinson's disease with dyskinesia, with fluctuations, R26.2 - Difficulty in walking, not elsewhere classified Medications: New leg brace (Knee Support Brace) As directed 2 ea 0RF knee support M17.0 - Bilateral primary osteoarthritis of knee, M25.561 - Pain in right knee, M25.562 - Pain in left knee Coding Level of Care Code Est Pt Level 4 (74866) Complex EM visit Add On G2211 Diagnoses Difficulty walking R26.2 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 Dyskinesia presence: with dyskinesia Fluctuating manifestations: with fluctuating manifestations Bilateral knee pain M25.561; M25.562 Bilateral primary osteoarthritis of knee M17.0 Polyarthralgia M25.50
[2024-09-16 14:36] VITALS: BP 169/91; PULSE 101; O2SAT 95
--- OUTSIDE RECORDS SUMMARY | 2024-09-16 14:38 | XMS_ITS | Clinical Summary ---
Author Organization [facility] Address [address] [place] [address] Care Team Providers Care Certified Hearing Instrument Dispenser Name Role Phone Dedra De La Torre [...] Recently Relevant to Health Maintenance Care Teams Certified Hearing Instrument Dispenser Relationship Specialty Start Date End Date Dedra De La Torre MD PCP - General Internal Medicine 10/29/21
== END 2024-09-16 14:57 | disposition home or self-care (01) ==
LOC: HO.PMC 14:30
PROVIDERS: PCP Family Medicine; Visit Provider Nurse Practitioner Family
DX: R26.2 Difficulty in walking, not elsewhere classified (principal); G20.B2 Parkinson's disease with dyskinesia, with fluctuations; M25.561 Pain in right knee; M25.562 Pain in left knee; M17.0 Bilateral primary osteoarthritis of knee; M25.50 Pain in unspecified joint
CPT/HCPCS: 99214; G2211

== ENCOUNTER → 2024-09-16 14:29 | Outpatient (BNVA) | payer OTHER, SELFPAY | PROVIDERS: PCP Family Medicine; Visit Provider Nurse Practitioner Family | DX: R26.2 Difficulty in walking, not elsewhere classified (principal); M25.561 Pain in right knee; M25.562 Pain in left knee; M17.0 Bilateral primary osteoarthritis of knee; M81.0 Age-related osteoporosis without current pathological fracture; G20.B2 Parkinson's disease with dyskinesia, with fluctuations; Z79.891 Long term (current) use of opiate analgesic | CPT/HCPCS: 99212 ==

== ENCOUNTER 2024-09-20 11:32 | Outpatient (AMB) | payer OTHER, SELFPAY ==
--- NOTE | 2024-09-20 11:35 | A.OFFVIS_ITS ---
Vital Signs 09/20/24 11:53 Height 5 ft 2 in BMI Reason not done Patient refused/unable BP 107/66 Blood Pressure Location Lt brachial Position Sitting Pulse 77 Pulse Source Pulse Oximeter Pulse Oximetry (%) 97 Oxygen Delivery Method Room Air Intake Visit Reasons: Pill count Intake Note: Brad comes in today for a pill count to oxycodone, patient should have 28 tablets and presents with 22 tablets which he last took today 09/20/24 at 8:30am. Unfortunately patient was 6 tablets short which is 1.5 days short of medication. This will result in a suspension from the opioid program for 1 year. Patient aware he can still be seen for injections and procedures. Electric Meter Installer Helper Required: No Accompanied by: TIRE MOLD TESTER Allergies No Known Allergies Allergy (Verified 09/20/24 11:52) HPI Comments Details: Patient returns to the office for a pill count. This patient is supposed to have 28 pills in his possession and has 22. Unfortunately, this demonstrates an irresponsible attitude towards his medication regimen. His prescription is for four pills per day, therefore he is short 1.5 days. Patient's TIRE MOLD TESTER reports patient had significant right knee pain and left knee pain flare up status post recent nerve block injection. Due to significant pain and patient's complains for uncontrolled pain, she gave him extra oxycodone pills which resulted in incorrect pill count today. Unfortunately, patient has received prior passes on slightly short pill counts and no show for one pill count. Given his risk is moderate he will be suspended for 1 year. Patient and TIRE MOLD TESTER will follow up with his PCP on 09/29/24 for potential opiod prescribing for one year, but will cont inue non-opioid medications and interventional treatments through our office. Denies any recent cough, cold, infection, fever or any other significant changes in medical history since last office visit. PRIOR: The patient is an 84-year-old male presenting with bilateral knee pain. He underwent a left diagnostic saphenous nerve block at the left adductor canal one week ago to address more severe pain in the left knee. The patient reports that the pain relief lasted for more than six hours post-procedure, with significant improvement noted overnight per TIRE MOLD TESTER. Today he reports significant right knee pain and is interested to undergo diagnostic injection for the right side. He is managing pain with oxycodone, naproxen and topical applications with continued symptoms. The patient has a history of Parkinson's disease, which contributes to his difficulty with ambulation. He experiences challenges with using a walker and has been advised to obtain a wheelchair for better mobility. Denies any recent cough, cold, infection, fever or any significant changes in medical history since last office visit. Past Procedures: 09/09/24: Left adductor canal saphenous nerve block, [id number] pain relief for >6 hours PRIOR: Patient presents today for a pill count. Patient is supposed to have #10 pills, in his possession has #25 pills. Patient reports mild to moderate analgesia on current medication regime. Patient and his TIRE MOLD TESTER report improved pain management since recent increased in opioid frequency from TID to QID without significant side effects, excessive drowsiness or uncontrolled constipation. However, patient's TIRE MOLD TESTER reports concern for patient right leg pain associated with warm and lump just below right knee and associated right calf tenderness and pain with walking. Patient also reports significant muscle spasms in his neck, left worse than right. Pain has been affecting his mobility, ADLs, mood, appetite and quality of life. They are planning to follow up with PCP regarding lump and swelling of RLE. Denies any fever, chills, weight loss, shortness of breaths, chest pain, nausea, sedation, dizziness, or urinary retention except occasional constipation. Denies any other significant changes in medical history since last office visit. PRIOR: Patient is 83-year-old male with history of arthritis, osteoporosis, Parkinson's, anxiety and depression, chronic left knee, right shoulder and neck pain, presents today for initial evaluation of chronic neck pain. Patient denies any recent falls, trauma, or injury. He recently completed formal physical therapy for gait imbalance training with some improvement. Patient is accompanied by TIRE MOLD TESTER Aicha. Denies any previous spine or joint injections or surgery. TIRE MOLD TESTER reports patient has increased limping, shuffling gait and dragging his feet due to Parkinson's. He follows with Dr. Isbell at [facility]. Patient experiences chronic pain in neck, arms, shoulders, and legs with daily activities, functioning, walking, movements and cold weather. Pain is constant and is rated at 9/10. Patient has been managing pain with Tylenol, NSAIDs, topical applications and gabapentin with partial relief. TIRE MOLD TESTER reports patient was under better pain control with low dose oxycodone over 5-6 years which allowed him to be less symptomatic and more functional. Patient also reports significant concerns in his neck and arms due to Parkinsons. Denies any fever or chills, rash, infection, constipation, sedations, nausea, vomiting, abdominal pain, chest pain, shortness of breaths, bladder or bowel dysfunction or saddle anesthesia. Location: Neck, shoulders, knee, bilateral legs Duration: Chronic pain worsening for past 5 years Characteristics of symptom or complaint: Aching, tingling, numbness, weakness, throbbing, sharp, heavy Aggravating or associated factors: Walking, movements, prolonged sitting or standing, laying, sleeping Relieving factors: Minimal relief with gabapentin, NSAIDs, Tylenol, heat therapy, topicals Treatment: Physical therapy [facility] Medical History Depression with anxiety Progressive supranuclear palsy Thrombocytopenia Lower extremity weakness Left wrist pain Generalized weakness Osteoporosis Arthritis Surgical History No pertinent past surgical history Social History Housing: Assisted Living Facility Alcohol intake: never Patient Tobacco Use Status: Never used Tobacco e-Cigarette/Vaping Use: Never Used Second Hand Smoke Exposure: No service: No Current occupational status: retired and disabled Current occupational exposures/hazards: No Cognitive needs: Yes (cane) Hearing needs: Yes Vision needs: No Review of Systems Const All systems reviewed & are unremarkable except as noted in HPI and below Physical Exam Vital Signs: Last Vital Signs Pulse 77 09/20/24 11:53 BP 107/66 09/20/24 11:53 Pulse Ox 97 09/20/24 11:53 Oxygen Delivery Method Room Air 09/20/24 11:53 General: Appears afebrile. Alert and oriented. Mood and affect appropriate. Hard of hearing bilaterally. Follows and participates in conversation appropriately. Respiratory effort is unlabored. No cough. Able to transition from sit to stand unassisted. Uses cane with ambulation. Extrem General: Yes capillary refill normal, Yes no clubbing, cyanosis or edema and Yes no calf tenderness Right lower extremity: knee (Limited ROM due to pain.) Details: normal to inspection, tenderness Location: of the patella, of the medial joint line and of the lateral joint line and crepitus; no ecchymosis, no deformity and no unusual warmth Left lower extremity: knee (Limited ROM due to pain.) Details: normal to inspection, tenderness Location: of the patella, of the medial joint line and of the lateral joint line and crepitus; no swelling, no ecchymosis, no deformity and no unusual warmth Psych Appearance: grossly normal and well kempt Speech and movement: Clear speech present Affect: normal affect Attitude: cooperative Thought process: Circumstantial thought process present Thought content: suicidality (none), no hallucinations and Depressive thoughts present Insight: Fair insight present (Psych) Judgement: Fair judgement present (Psych) Results Reviewed Results Reviewed: XR SHOULDER, RIGHT 01/21/22 CLINICAL INFORMATION: Right shoulder pain. FINDINGS: There is no evidence of acute fracture or dislocation of the right shoulder. There is degenerative spurring about the glenohumeral joint. There is also noted to be some cartilage calcification about the humeral head with appearance of possible chondrocalcinosis. No widening of the coracoclavicular space is seen. IMPRESSION: Degenerative change of the glenohumeral joint. XR KNEE, LEFT 01/21/22 CLINICAL INFORMATION: Left knee pain. FINDINGS: There is no evidence of acute fracture or dislocation of the left knee. There is chondrocalcinosis present. There is mild narrowing of the medial joint space compartment. There is degenerative change of the patellofemoral joint with spurring of both the medial and lateral facets of the patella and some irregularity seen about the medial facet. There is spurring about the patellar site of insertion of the quadriceps tendon. No effusion is appreciated. Prominent vascular calcification is seen. IMPRESSION: Degenerative changes of the left knee predominantly at the patellofemoral joint. Chondrocalcinosis. XR CERVICAL SPINE 01/21/22 CLINICAL INFORMATION: Pain. FINDINGS: No abnormal prevertebral soft tissue swelling is seen. There is loss of the normal cervical spine lordosis. There is significant disc space narrowing present with marginal spurring and bridging C3-C7. There is facet arthropathy seen throughout the C2-C7. Lucency is seen about the posterior aspect of the L2 vertebral body and facet which is likely related to artifact rather than a true fracture. IMPRESSION: Significant cervical spondylosis as described. Assessment & Plan Assessment & Plan (1) Cervical spondylosis: Code(s): M47.812 - Spondylosis without myelopathy or radiculopathy, cervical region Category: Medical (2) Opioid contract exists: Code(s): Z79.891 - longterm (current) use of opiate analgesic Category: Medical (3) Osteoarthritis of left knee: Code(s): M17.12 - Unilateral primary osteoarthritis, left knee Category: Medical (4) Low back pain: Code(s): M54.50 - Low back pain, unspecified Category: Medical (5) Disc disease, degenerative, cervical: Code(s): M50.30 - Other cervical disc degeneration, unspecified cervical region Category: Medical (6) Chronic pain: Code(s): G89.29 - Other chronic pain Category: Medical Qualifiers: Chronic pain type: chronic pain syndrome Qualified Code(s): G89.4 - Chronic pain syndrome (7) Bilateral knee pain: Code(s): M25.561 - Pain in right knee; M25.562 - Pain in left knee Category: Medical Plan Unfortunately, the patient?s pill count today was inaccurate for oxycodone 5 mg QID prn which will result in one year suspension given his opioid risk is moderate. Patient is aware that he will not be eligible for medical management through this office until 09/20/25. Patient is also aware that he can continue receive interventional treatments and non-opioid medications through our office. Patient and TIRE MOLD TESTER will discuss with PCP on 09/29/24 if they can take over opioid prescribing for one year until patient will be eligible to re-enter our opioid program next year. I will send in a compassionate prescription for one month of oxycodone in which he will need to taper himself off with assistance of TIRE MOLD TESTER or reach out to his PCP to take over prescribing. Patient has pending PA approval for diagnostic nerve block to address right knee pain. All questions and concerns have been answered and patient and TIRE MOLD TESTER have agreed with the plan. Follow up as needed. Medications: Changed From oxycodone Partial Fill upon patient request. 5 mg PO QID 30 days PRN 120 tabs 0RF pain (scale score 7-10) M47.812 - Spondylosis without myelopathy or radiculopathy, cervical region, M50.30 - Other cervical disc degeneration, unspecified cervical region To oxycodone Partial Fill upon patient request. Please use this prescription to taper off medication, 4 weeks compassionate prescription. 5 mg PO QID PRN 120 tabs 0RF pain (scale score 7-10) 30 days M47.812 - Spondylosis without myelopathy or radiculopathy, cervical region, M50.30 - Other cervical disc degeneration, unspecified cervical region Coding Level of Care Code Est Pt Level 4 (29868) Complex EM visit Add On G2211 Diagnoses Cervical spondylosis M47.812 Opioid contract exists Z79.891 Osteoarthritis of left knee M17.12 Low back pain M54.50 Disc disease, degenerative, cervical M50.30 Chronic pain syndrome G89.4 Chronic pain type: chronic pain syndrome Bilateral knee pain M25.561; M25.562
[2024-09-20 11:53] VITALS: BP 107/66; PULSE 77; O2SAT 97
--- OUTSIDE RECORDS SUMMARY | 2024-09-20 12:23 | XMS_ITS | Clinical Summary ---
Author Organization [facility] Address [address] [place] [address] Care Team Providers Care Battery Mechanic Name Role Phone Dedra De La Torre [...] Recently Relevant to Health Maintenance Care Teams Battery Mechanic Relationship Specialty Start Date End Date Dedra De La Torre MD PCP - General Internal Medicine 10/29/21
== END 2024-09-20 11:53 | disposition home or self-care (01) ==
LOC: HO.PMC 11:33
PROVIDERS: PCP Family Medicine; Visit Provider Nurse Practitioner Family
DX: M47.812 Spondylosis without myelopathy or radiculopathy, cervical region (principal); Z79.891 Long term (current) use of opiate analgesic; M17.12 Unilateral primary osteoarthritis, left knee; M54.50 Low back pain, unspecified; M50.30 Other cervical disc degeneration, unspecified cervical region; G89.4 Chronic pain syndrome; M25.561 Pain in right knee; M25.562 Pain in left knee
CPT/HCPCS: 99214; G2211

== ENCOUNTER → 2024-09-20 11:32 | Outpatient (BNVA) | payer OTHER, SELFPAY | PROVIDERS: PCP Family Medicine; Visit Provider Nurse Practitioner Family | DX: M47.812 Spondylosis without myelopathy or radiculopathy, cervical region (principal); M54.50 Low back pain, unspecified; M50.30 Other cervical disc degeneration, unspecified cervical region; M17.12 Unilateral primary osteoarthritis, left knee; Z79.891 Long term (current) use of opiate analgesic; G89.4 Chronic pain syndrome; M25.561 Pain in right knee; M25.562 Pain in left knee | CPT/HCPCS: 99212 ==

== ENCOUNTER 2024-09-29 11:49 | Outpatient (AMB) | payer OTHER, SELFPAY ==
--- NOTE | 2024-09-29 12:01 | MHC.PC.OV ---
Vital Signs 09/29/24 12:11 Height 5 ft 2 in Weight 132 lb BMI 24.1 BP 100/60 Blood Pressure Location Rt brachial Position Sitting Respiration 16 Pulse 85 Pulse Source Pulse Oximeter Temp 98.1 F Temp Source Temporal Artery Scan Pulse Oximetry (%) 94 Oxygen Delivery Method Room Air Intake Visit Reasons: f/u chronic conditions Intake Note: Brad presents in the office today for follow up to chronic conditions. Patient is experiencing nausea from the Baclofen. Needs a new Rx for Magnesium. Allergies baclofen Allergy (Verified 09/29/24 12:10) Nausea Medication List - Last Reconciled 09/29/24 by Hernan Mae MD acetaminophen ER 650 mg PO Q12H PRN 10 days amlodipine 2.5 mg PO DAILY 30 days blood pressure monitor Automatic, Digital. Dx: I10. Daily As directed, 999 days/lifetime carbidopa-levodopa 50-200 mg ER 1 tab PO BID carboxymethylcellulose sodium 0.5% (Refresh Tears) 1 drp ophthalmic (eye) BID cetirizine 10 mg PO DAILY chair, wheel (Wheel chair) As directed cyanocobalamin (vitamin B-12) 1,000 mcg IM Q4W 3 months diclofenac sodium 1% (Voltaren Arthritis Pain) 4 grams topical QID PRN 30 days docusate sodium 100 mg PO BID PRN 30 days ezetimibe (Zetia) 10 mg PO DAILY 90 days fluticasone propionate 50 mcg/actuation (Flonase Allergy Relief) 1 spray intranasal Q12H 30 days lactulose PO leg brace (Knee Support Brace) As directed lidocaine 5% 1 patch topical DAILY 30 days lisinopril 5 mg PO DAILY 30 days magnesium oxide 250 mg PO DAILY miscellaneous medical supply Motorized?scooter. ?Daily?As directed. 999 days miscellaneous medical supply Electric Recliner /Lift Chair. Daily As directed, 999 days oxycodone 5 mg PO QID PRN 30 days quetiapine 25mg (1 tab) AM and 50mg (2 tabs) PM 30 days ropinirole 0.25 mg PO BEDTIME sertraline 50 mg PO DAILY 90 days Shower Chair Shower chair/bench. As directed, 999 days. walker (Ultra-Light Rollator misc) As directed, 999 days zolpidem (Ambien) 5 mg PO BEDTIME PRN 30 days Tobacco use date assessed: 09/29/24 Fall risk assessment: No Falls in past year Last assessed Fall Risk: 09/29/24 Dental Screening Dental Screen Date: 09/29/24 Did you have a dental visit in the last 12 months?: Yes Did you have a dental problem in the last 6 months where you did not have access to dental care?: No Was dental information given to patient?: Patient has dentist HPI f/u chronic conditions HPI Details 84 y/o male presents to f/u chronic conditions. Had been following up with pain management for chronic pain/bilateral knee pain but pt was 6 tablets oxycodone short. Was suspended from opiod program x1 year. He can still be seen for injections and procedures. He had been provided with a 1 month supply. Recommendations for weaning were given. Reports ongoing difficulty sleeping. HPI Comments History of Present Illness Details Documentation assistance for Hernan Mae MD, was provided by Clinton Kingston,? Pst Supervisor on 09/29/2024 at 1:11 PM EST. I, Dr. Mae, have read, observed, and verified documentation. ?? [facility] Medical History Depression with anxiety Progressive supranuclear palsy Thrombocytopenia Lower extremity weakness Left wrist pain Generalized weakness Osteoporosis Arthritis Surgical History No pertinent past surgical history Social History (Updated 09/29/24 @ 12:11 by Kayce Wells MA) Housing: Assisted Living Facility Alcohol intake: never Patient Tobacco Use Status: Never used Tobacco e-Cigarette/Vaping Use: Never Used Second Hand Smoke Exposure: No service: No Current occupational status: retired and disabled Current occupational exposures/hazards: No Cognitive needs: Yes (cane) Hearing needs: Yes Vision needs: No Questionnaire Thrive Questionnaire Date Thrive assessed: 06/15/24 I am a: Parent/Caregiver What is your living situation today?: I have a steady place to live Within the past 12 months, did the food you bought not last and you didn't have the money to get more?: Never true Within the past 12 months, did you worry whether your food would run out before you got money to buy more?: Never true Do you have trouble paying for medicines?: No Do you have trouble getting transportation to medical appointments?: No Do you have trouble paying your heating and electricity bill?: No Do you have trouble taking care of your child, family member or friend?: No Do you have trouble with day-to-day activities such as bathing, preparing meals, shopping, managing finances, etc.?: Yes Are you currently unemployed and looking for a job?: I choose not to answer this question Are you interested in more education?: No Please select the resources that you would like help with: None Currently or been in a relationship where the following occur: No concerns reported THRIVE Score: 0 FABIENNE-7 AMB Questionnaire FABIENNE-7 Date FABIENNE - 7 assessed: 09/16/23 Source: Developed by Drs. Rad Dimas, Maria Elena Chaidez, Raoul Higuera and colleagues, with an educational eleanor from [employer]. Review of Systems Const Denies chills, Denies fatigue, Denies fever(s), Denies headache(s) and Denies weakness ENT Denies dizziness and Denies headache(s) Card Denies dyspnea Resp Denies cough, Denies dyspnea, Denies wheezing and Denies other (shortness of breath) Musc Denies numbness and Denies tingling Neuro Denies dizziness, Denies headache(s), Denies numbness, Denies tingling and Denies weakness Psych Denies anxiety and Denies depression Endo Denies fatigue Aller/Immun Denies wheezing Physical exam (Primary Care) Vital Signs: Last Vital Signs Temp 98.1 F 09/29/24 12:11 Pulse 85 09/29/24 12:11 Resp 16 09/29/24 12:11 BP 100/60 09/29/24 12:11 Pulse Ox 94 09/29/24 12:11 Oxygen Delivery Method Room Air 09/29/24 12:11 BMI result Body Mass Index 24.1 Tobacco/Smoking Status: Tobacco use Status Tobacco use date assessed 09/29/24 09/29/24 12:14 Patient Tobacco Use Status Never used Tobacco 09/29/24 12:11 e-Cigarette/Vaping Use Never Used 09/29/24 12:11 Thrive Assessment: Date of Thrive Assessment Date Thrive assessed 06/15/24 09/29/24 12:03 Currently or been in a relationship where the following occur: No concerns reported Const General: well developed; No acute distress Nutritional Appearance: well nourished Orientation/consciousness: patient oriented x3 HENMT Head: Yes normocephalic and Yes atraumatic Eyes General: appearance normal, both eyes and all related structures Pupils: Equal, round and reactive pupils present EOM: EOMs intact bilaterally Resp Effort & Inspection: normal respiratory effort Neuro General: patient oriented x3 and gait normal Cranial nerves: Yes Equal, round and reactive pupils present Psych Affect: normal affect Coding Level of Care Code Est Pt Level 4 (13428) Diagnoses Bilateral knee pain M25.561; M25.562 Chronic pain syndrome G89.4 Chronic pain type: chronic pain syndrome Difficulty sleeping G47.9 Assessment & Plan Assessment & Plan (1) Bilateral knee pain: Code(s): M25.561 - Pain in right knee; M25.562 - Pain in left knee Category: Medical (2) Chronic pain: Code(s): G89.29 - Other chronic pain Category: Medical Qualifiers: Chronic pain type: chronic pain syndrome Qualified Code(s): G89.4 - Chronic pain syndrome (3) Difficulty sleeping: Code(s): G47.9 - Sleep disorder, unspecified Category: Medical Plan Chronic bilateral knee pain. Patient followed by pain management and was provided oxycodone 4 times a day for pain. Pain management note from 09/20/2024 indicates that his medication count was short and the prior 2 months also were slightly short. Patient has been suspended from opioid program for 1 year. He has been provided a 1 month supply and recommendations for weaning were given. They can continue to follow him for other potential moods of pain control. I will give him a script for celecoxib 200 mg twice a day Patient also use ice/heat and topical pain relievers. He was also given baclofen by pain management. This caused some nausea at 1 tablet twice a day. Advise they try taking 1/2 tablet twice a day or 1/2 tablet daily p.r.n. pain. Tylenol Lidocaine patches. Still has significant difficulty sleeping. Zolpidem is helping but not enough. Can try increasing this Medications: New celecoxib 200 mg PO BID PRN 60 caps 3RF pain 30 days Changed From zolpidem (Ambien) 5 mg PO BEDTIME 30 days PRN 30 tabs 4RF sleep To zolpidem 10 mg PO BEDTIME PRN 30 tabs 1RF sleep 30 days
[2024-09-29 12:11] VITALS: BP 100/60; PULSE 85; RESP 16; TEMP 36.7; O2SAT 94; BMI 24.1
--- OUTSIDE RECORDS SUMMARY | 2024-09-29 12:43 | XMS_ITS | Clinical Summary ---
Author Organization [facility] Address [address] [place] [address] Care Team Providers Care Director Of Restaurant Operations Name Role Phone Dedra De La Torre [...] Recently Relevant to Health Maintenance Care Teams Director Of Restaurant Operations Relationship Specialty Start Date End Date Dedra De La Torre MD PCP - General Internal Medicine 10/29/21
== END 2024-09-29 13:12 | disposition home or self-care (01) ==
LOC: HO.HMCFM 11:50
PROVIDERS: PCP Family Medicine; Visit Provider Family Medicine
DX: M25.561 Pain in right knee (principal); M25.562 Pain in left knee; G89.4 Chronic pain syndrome; G47.9 Sleep disorder, unspecified

== ENCOUNTER → 2024-09-29 11:49 | Outpatient (BNVA) | payer OTHER, SELFPAY | PROVIDERS: PCP Family Medicine; Visit Provider Family Medicine | DX: M17.0 Bilateral primary osteoarthritis of knee (principal) | CPT/HCPCS: 99212 ==

== ENCOUNTER 2024-10-14 08:21 | Outpatient (REF) | payer OTHER, SELFPAY ==
--- OUTSIDE RECORDS SUMMARY | 2024-10-14 08:54 | XMS_ITS | Clinical Summary ---
Author Organization [facility] it Address [address] [place] [address] Care Team Providers Care Flame Hardener Name Role Phone Dedra De La Torre [...] Recently Relevant to Health Maintenance Care Teams Flame Hardener Relationship Specialty Start Date End Date Dedra De La Torre MD PCP - General Internal Medicine 10/29/21
== END 2024-10-14 08:22 | disposition home or self-care (01) ==
LOC: CF 08:21
PROVIDERS: Visit Provider Internal Medicine
DX: Z13.89 Encounter for screening for other disorder (principal)